=== PATIENT | male | born 1930 | race Caucasian/White ===

== ENCOUNTER 2016-02-05 11:08 | Inpatient (IN) | payer OTHER, BC ==
[~2016-02-05] VITALS: Ht 188 cm; Wt 97.6 kg
[2016-02-05] VITALS (8 sets, daily range): BP systolic 93–102; BP diastolic 59–69; PULSE 74–103; TEMP 36.8–38.8; O2SAT 93–97; Ht 188 cm; Wt 97.6 kg
[~2016-02-05 11:08] MED LIST: CHOL100010 PO; GLCSC500400 PO; HYDR25TA4 PO; MULT-506 PO; OMEG10007 PO; POTA10CA28 PO; PRIM50TA34 PO; PRLSR20 PO; PROP80CA PO
[2016-02-05] MEDS ORDERED: ASPI81TA28 PO (11:24)
[2016-02-05] MEDS ORDERED: LISI-729 PO (11:24)
[2016-02-05] MEDS ORDERED: MAGN400T6 PO (11:24)
[2016-02-05] MEDS ORDERED: HYDROmorphone INJ 0.5 MG/0.5 ML SYR IV STA (11:29)
[2016-02-05] MEDS ORDERED: ALBUT/IPRATROP 3MG/0.5MG NEB 3 ML VIAL INH STA (11:29)
[2016-02-05] MEDS ORDERED: ONDANSETRON INJ 2 MG/ML 2 ML VIAL IV STA (11:29)
[2016-02-05] MEDS ORDERED: SODIUM CHLORIDE 0.9% 1000ML 1,000 ML IV STA ×3 (11:32→12:07)
[2016-02-05 11:37] LABS: BASO % 0.2 %; BASO ABS # 0.02 K/uL (0-0.2); COMPLETE YES; EOS % 0.1 %; HEMATOCRIT 46.6 % (42-52); IG% 0.9 %; LYMPH % 3.3 %; LYMPH ABS # 0.29 K/uL (1.2-3.4); MEAN CORPUSCULAR HEMOGLOBIN 30.7 pg (25-34); MEAN CORPUSCULAR HGB CONC 34.1 g/dl (32-36); MONO % 5.2 %; NEUT % 90.3 %; PLATELET COUNT 153 K/uL (130-400); RED BLOOD COUNT 5.18 M/uL (4.7-6.1); WHITE BLOOD COUNT 8.71 K/uL (4.8-10.8)
--- NOTE | 2016-02-05 11:37 | EMERGENCY ROOM VISIT NOTE ---
History Report prepared by Urbano: Slade Robertson Under the Supervision of: Dr. Landon Munoz M.D. First contact with patient: 11:25 Chief Complaint: VOMITING Stated Complaint: WEAKNESS, VOMITING SOB History of Present Illness The patient is an 85 year old male who presents to the Emergency Room with complaints of a persistent illness that started last night. He says he was vomiting all night long, which was accompanied with diarrhea, abdominal pain, nausea, and a runny nose. The patient notes that he had swelling in his legs the past couple days, but they are not swollen now. He also had shortness of breath this morning. The patient fell in the bathroom at [facility] last night and got stuck. He has been having generalized weakness, and has been unable to walk due to vomiting. He did not hit his head and denies a headache. The patient has had an ileostomy for 50 years. He has no history of liver failure. The patient has no history of pneumonia. He has dark skin over his chest, but the patient has been taking light therapy for eczema. Source of History: patient Onset: Last night Position: other (global - illness ) Timing: other (persistent) Associated Symptoms: + SOB, + abdominal pain, + diarrhea, + nausea, + vomiting, + weakness, No headache Note: Associated symptoms: Swollen legs past couple days (but not swollen now), runny nose. Review of Systems See HPI for pertinent positives & negatives. A total of 10 systems reviewed and were otherwise negative. Past Medical & Surgical Medical Problems: (1) Arthritis (2) Kidney stone (3) TURP (4) UTI (urinary tract infection) Surgical Problems: (1) H/O hernia repair (2) History of cataract surgery Family History Family history unobtainable secondary to age. Social History Smoking Status: Never Smoker Marital Status: Housing Status: residential Occupation Status: retired Current/Historical Medications Scheduled Aspirin (Aspirin Ec), 81 MG PO DAILY Cholecalciferol (Vitamin D), 1,000 INTER.UNIT PO DAILY Fish Oil ([place]-3), 2 CAP PO DAILY Glucosamine-Chondroitin (Glucosamine/Chondroitin), 2 TABS PO BID Lisinopril (Zestril), 2.5 MG PO DAILY Magnesium Oxide (Mag-Ox), 400 MG PO DAILY Multivitamin (Multivitamin), 1 TAB PO DAILY Omeprazole (Prilosec Otc *), 20 MG PO DAILY Primidone (Mysoline), 50 MG PO DAILY Propranolol Hcl (Propranolol Hcl Er), 80 MG PO DAILY Allergies Coded Allergies: Adhesives (Verified Adverse Reaction, Unknown, ADHESIVE TAPE = BLISTERS, ) Physical Exam Vital Signs Date Time Temp Pulse Resp B/P Pulse Ox O2 Delivery O2 Flow Rate FiO2 02/05/16 13:15 97 Nasal Cannula 2.0 02/05/16 13:04 108 20 102/59 97 Nasal Cannula 2.0 02/05/16 11:56 94 Room Air 02/05/16 11:21 120 02/05/16 11:15 37.3 118 24 103/64 91 Room Air Physical Exam GENERAL: Patient is acutely ill appearing, in moderate distress. HEENT: No acute trauma, normocephalic atraumatic, mucous membranes moist, no nasal congestion, no scleral icterus. NECK: No stridor, no adenopathy, no meningismus, trachea is midline. LUNGS: Diffuse wheezing and rhonchi with tight lung sounds. Dyspneic and tachypneic. HEART: Tachycardic rate and regular rhythm. No murmurs, rubs, gallops appreciated. ABDOMEN: Soft, vague epigastric discomfort on palpation, bowel sounds positive, no masses appreciated, no peritonitis. BACK: No midline tenderness, no CVA tenderness EXTREMITIES: Normal motion all extremities, no cyanosis, no edema. NEUROLOGIC: Alert and oriented, no acute motor or sensory deficits, no focal weakness, cranial nerves grossly intact. SKIN: Pale, mildly mottled over chest. Medical Decision & Procedures ER Provider Diagnostic Interpretation: X ray results are stated below per my interpretation and the radiologist's interpretation. CHEST ONE VIEW PORTABLE CLINICAL HISTORY: fever WEAKNESS, SHORTNESS OF BREATH COMPARISON STUDY: 05/29/2015 FINDINGS: The heart is mildly enlarged. There is no lobar consolidation. There is no overt failure. There are mild basilar atelectatic changes. There is no significant pleural fluid[ IMPRESSION: AP portable study. Mild cardiomegaly. No evidence of focal pulmonary consolidation. Electronically signed by: Hugh Winters M.D. 02/05/2016 12:32 PM Laboratory Results 02/05/16 11:16 Red Blood Count 5.18, Mean Corpuscular Volume 90.0, Mean Corpuscular Hemoglobin 30.7, Mean Corpuscular Hemoglobin Concent 34.1, Mean Platelet Volume 10.0, Neutrophils (%) (Auto) 90.3, Lymphocytes (%) (Auto) 3.3, Monocytes (%) (Auto) 5.2, Eosinophils (%) (Auto) 0.1, Basophils (%) (Auto) 0.2, Neutrophils # (Auto) 7.86, Lymphocytes # (Auto) 0.29, Monocytes # (Auto) 0.45, Eosinophils # (Auto) 0.01, Basophils # (Auto) 0.02 02/05/16 11:16 Test 02/05/16 11:16 02/05/16 11:35 02/05/16 11:40 02/05/16 11:44 White Blood Count 8.71 K/uL (4.8-10.8) Red Blood Count 5.18 M/uL (4.7-6.1) Hemoglobin 15.9 g/dL (14.0-18.0) Hematocrit 46.6 % (42-52) Mean Corpuscular Volume 90.0 fL (80-100) Mean Corpuscular Hemoglobin 30.7 pg (25-34) Mean Corpuscular Hemoglobin Concent 34.1 g/dl (32-36) Platelet Count 153 K/uL (130-400) Mean Platelet Volume 10.0 fL (7.4-10.4) Neutrophils (%) (Auto) 90.3 % Lymphocytes (%) (Auto) 3.3 % Monocytes (%) (Auto) 5.2 % Eosinophils (%) (Auto) 0.1 % Basophils (%) (Auto) 0.2 % Neutrophils # (Auto) 7.86 K/uL (1.4-6.5) Lymphocytes # (Auto) 0.29 K/uL (1.2-3.4) Monocytes # (Auto) 0.45 K/uL (0.11-0.59) Eosinophils # (Auto) 0.01 K/uL (0-0.5) Basophils # (Auto) 0.02 K/uL (0-0.2) RDW Standard Deviation 48.6 fL (36.4-46.3) RDW Coefficient of Variation 14.8 % (11.5-14.5) Immature Granulocyte % (Auto) 0.9 % Immature Granulocyte # (Auto) 0.08 K/uL (0.00-0.02) Prothrombin Time 11.3 SECONDS (9.0-12.0) Prothromb Time International Ratio 1.1 (0.9-1.1) Est Creatinine Clear Calc Drug Dose 26.8 ml/min Estimated GFR () 28.7 Estimated GFR (Non- 24.8 BUN/Creatinine Ratio 13.6 (10-20) Calcium Level 9.0 mg/dl (8.5-10.1) Magnesium Level 1.8 mg/dl (1.8-2.4) Total Bilirubin 1.4 mg/dl (0.2-1) Direct Bilirubin 0.4 mg/dl (0-0.2) Aspartate Amino Transf (AST/SGOT) 50 U/L (15-37) Alanine Aminotransferase (ALT/SGPT) 50 U/L (12-78) Alkaline Phosphatase 71 U/L (45-117) Total Creatine Kinase 132 U/L (39-308) Creatine Kinase MB 1.7 ng/ml (0.5-3.6) Creatine Kinase MB Ratio 1.3 (0-3.0) Troponin I 0.209 ng/ml (0-0.045) Total Protein 8.2 gm/dl (6.4-8.2) Albumin 3.8 gm/dl (3.4-5.0) Lipase 149 U/L (73-393) Influenza Type A Antigen Neg for Influ A (NEG) Influenza Type B Antigen Neg for Influ B (NEG) Bedside Lactic Acid Venous 3.38 mmol/L (0.90-1.70) Bedside Hemoglobin 16.7 g/dl (14.0-18.0) Bedside Hematocrit 49 % (42-52) Bedside Sodium 142 mEq/L (135-144) Bedside Potassium 4.2 mEq/L (3.3-5.0) Bedside Chloride 107 mEq/L (101-112) Bedside Total CO2 18 mEq/l (24-31) Anion Gap 22.0 mmol/L (16-25) Bedside Blood Urea Nitrogen 34 mg/dl (7-18) Bedside Creatinine 1.9 mg/dl (0.6-1.3) Bedside Glucose (other) 152 mg/dl (70-99) Bedside Ionized Calcium (Priya) 1.17 mmol/l (1.12-1.32) Laboratory results as reviewed by me. Medications Administered Medications (Trade) Dose Ordered Sig/Karen Route Start Time Stop Time Status Last Admin Dose Admin Ondansetron HCl (Zofran Inj) 4 mg NOW STAT IV 02/05/16 11:29 02/05/16 11:30 DC 02/05/16 11:48 4 MG Hydromorphone HCl (Dilaudid Inj) 0.5 mg NOW STAT IV 02/05/16 11:29 02/05/16 11:30 DC 02/05/16 11:48 0.5 MG Albuterol/ Ipratropium 3 ml 3 ml NOW STAT INH 02/05/16 11:29 02/05/16 11:30 DC 02/05/16 11:47 3 ML Sodium Chloride 1,000 ml @ 999 mls/hr Q1H1M STAT IV 02/05/16 11:32 02/05/16 12:32 DC 02/05/16 11:44 999 MLS/HR Sodium Chloride (Nss 1000ml) 1,000 ml @ 999 mls/hr Q1H1M STAT IV 02/05/16 12:07 02/05/16 13:07 DC 02/05/16 12:31 999 MLS/HR Piperacillin Sod/ Tazobactam Sod 4.5 gm 4.5 gm NOW STAT IV 02/05/16 12:07 02/05/16 12:09 DC 02/05/16 12:29 4.5 GM Vancomycin HCl 1000 mg/Sodium Chloride 270 ml @ 125 mls/hr NOW STAT IV 02/05/16 12:07 02/05/16 14:18 DC 02/05/16 13:10 125 MLS/HR Sodium Chloride (Nss 1000ml) 1,000 ml @ 999 mls/hr Q1H1M STAT IV 02/05/16 12:07 02/05/16 13:07 DC 02/05/16 12:32 999 MLS/HR ECG Indication: vomiting Rate (beats per minute): 116 Rhythm: sinus tachycardia Findings: no acute ischemic change, no ectopy ED Course 1126: The patient was evaluated in room C4. A complete history and physical exam was performed. 1129: Ordered Duoneb 3 ml INH, Dilaudid Inj 0.5 mg IV, Zofran Inj 4 mg IV. 1132: Ordered NSS 1000 ml @ 999 mls/hr IV. 1200: I reevaluated the patient and he looks vastly improved and his color is improved, although he still has diffuse wheezing. The patient verbally expressed understanding and agreement of the treatment plan. The patient will be evaluated for further treatment. 1207: Ordered Vancomycin HCl 1000 mg/Sodium Chloride 270 ml @ 125 mls/hr IV, Zosyn IV 4.5 gm IV. 1215: I discussed the patient with Dr. Ania GONZALEZ roof tiler - he will evaluate the patient for further treatment. Medical Decision Differential: Sepsis, Infectious (UTI/Pneumonia/Meningitis/etc), Metabolic/ Electrolyte Abnormality, Cardiac, Hepatic, Endocrine, Toxicologic, Neurologic, amongst other pathologies entertained. 85 yr old male arrives quite unwell appearing, tachycardic, hypoxic and mottled. Lung exam quite poor consistent with infection as he does not appear CHF. 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 Still tachy and ill appearing on arrival. Given duoneb and further fluids. CXR not very convincing of it being source but with exam will treat empirically as pneumonia. Lactic acid elevated likely secondary to sepsis and dehydration, as is Cr elevated. Initially with abdominal discomfort which he related to vomiting and his abdomen is quite soft without peritonitis. I do not feel that he requires CT abdo/pelv at this time, especially given IV contrast can't be used limiting utility. HR improving with fluids and patient noting he is starting to feel much improved. Given broad spectrum abx. Not consistent with PE/dissection. Will need further work-up and evaluation. Consults Time Called: 1214 Consulting Physician: Dr. Ania GONZALEZ roof tiler Returned Call: 1215 I discussed the patient with Dr. Ania GONZALEZ roof tiler - he will evaluate the patient for further treatment. Impression Primary Impression: Sepsis Additional Impression: PNA (pneumonia) Critical Care I have personally spent greater than 35 minutes of critical care time in the direct management of this patient. This was a life/limb threatening event. This includes time spent evaluating patient, direct bedside care, chart review, placing orders, interpretation of diagnostic studies, discussion with consultants, patient, and family members, as well as other required patient management activities. This 35 minutes is in excess of all separately billable procedures. Scribe Attestation The scribe's documentation has been prepared under my direction and personally reviewed by me in its entirety. I confirm that the note above accurately reflects all work, treatment, procedures, and medical decision making performed by me. Departure Information Dispostion Being Evaluated By Hospitalist Referrals Elva Hanson (PCP) Patient Instructions A Signature Page, My [facility]
[2016-02-05 11:46] LABS: INR 1.1 (0.9-1.1); PROTHROMBIN TIME (PATIENT) 11.3 SECONDS (9.0-12.0)
[2016-02-05 11:48] LABS: BUN/CREATININE RATIO 13.6 (10-20); CREATININE 2.3 mg/dl (0.60-1.40); MAGNESIUM 1.8 mg/dl (1.8-2.4); POTASSIUM 4.4 mmol/L (3.5-5.1)
[2016-02-05 11:56] LABS: ISTAT CREATININE 1.9 mg/dl (0.6-1.3); ISTAT HEMOGLOBIN 16.7 g/dl (14.0-18.0); ISTAT IONIZED CALCIUM 1.17 mmol/l (1.12-1.32)
[2016-02-05 12:03] LABS: CKMB/CK RATIO 1.3 (0-3.0)
[2016-02-05] MEDS ORDERED: PIPERACILLIN/TAZOBACTAM 4.5 GM/100ML D5W IV STA (12:07)
[2016-02-05] MEDS ORDERED: VANCOMYCIN INJ 1,000 MG in SODIUM CHLORIDE 0.9% 250ML 250 ML IV STA (12:07)
--- NOTE | 2016-02-05 12:34 | DIAGNOSTIC IMAGING REPORT ---
CHEST ONE VIEW PORTABLE CLINICAL HISTORY: fever WEAKNESS, SHORTNESS OF BREATH COMPARISON STUDY: 05/29/2015 FINDINGS: The heart is mildly enlarged. There is no lobar consolidation. There is no overt failure. There are mild basilar atelectatic changes. There is no significant pleural fluid[ IMPRESSION: AP portable study. Mild cardiomegaly. No evidence of focal pulmonary consolidation. Electronically signed by: Hugh Winters M.D. 02/05/2016 12:32 PM
[2016-02-05] MEDS ORDERED: MAGNESIUM HYDROXIDE SUSP 30 ML UDC PO PRN (13:15)
[2016-02-05] MEDS ORDERED: POLYETHYLENE (MIRALAX) 17 GM PACK PO PRN (13:15)
[2016-02-05] MEDS ORDERED: NITROGLYCERIN 0.4 MG SL PER TAB CHARGE SL PRN (13:15)
[2016-02-05] MEDS ORDERED: ALUMINUM/MAGNESIUM/SIMETH (MAALOX MAX) 30 ML UDC PO PRN (13:15)
--- NOTE | 2016-02-05 14:23 | History and Physical ---
History & Physical Date & Time of Service: Feb 05, 2016 at 14:06 Chief Complaint: Weakness, Vomiting Sob Primary Care Physician: Elva Hanson History of Present Illness Source: patient, spouse, clinic records, hospital records Mr. Leung is a 85 y/o male with PMHx of Ulcerative Colitis S/P Partial Colectomy with Ileostomy (50 years ago), S/P Appendectomy, BPH S/P TURP, GERD, and MVP who presents to the ED complaining of nausea and vomiting that started last night and has remained consistent until approx 0900 this AM. He is a resident of [facility]. He reports he does not recall eating anything unusual or new prior to these episodes. Patient and ate same meal yesterday and does not report any similar symptoms. Associated abdominal pain that started last night and was "crampy" and is located superior to the umbilicus without radiation or movement of pain. Pain is improved however remains constant but he is unable to describe it at this time. He reports he had his appendix removed in the past. Patient with ileostomy present and reports diarrhea. States "it was almost clear" when describing the stool but denies bright red blood or melena. States that he normally has more formed stool with his ileostomy. Associated generalized weakness since the onset of these symptoms. He does report a fall in the bathroom at [facility] last night but denies striking his head or LOC. Does report SOB this AM that has improved. Associated rhinorrhea but denies presence of a cough. States that he was on a short course of prednisone and amoxicillin about 1 month ago because he was having wheezing. Reports lower extremity edema a couple days ago that have resolved. He states this is not uncommon for him and he was prescribed compression stockings to prevent edema. Patient has been undergoing light therapy for eczema on his chest and reports pruritus of that area. In the ED, patient was noted to have low BPs however patient reports that he always runs low and can be around 100 systolically. Lactic acid at 3.38. Troponin 0.209. Cr noted at 2.3 with baseline unknow however labs from Sep 2015 show Cr of 1.1. Influenza negative. He was hydrated with NSS boluses. CXR without evidence of focal consolidation however patient with rhonchi at bilateral bases without wheezing. Patient did received Duoneb treatment. He was started on Zosyn and Vancomycin. Patient will be admitted to the telemetry floor for further evaluation and care. Past Medical/Surgical History Medical Problems: (1) Arthritis Status: Chronic (2) Kidney stone Status: Chronic (3) TURP Status: Resolved (4) UTI (urinary tract infection) Status: Chronic Surgical Problems: (1) H/O hernia repair Status: Resolved (2) History of cataract surgery Status: Resolved Family History Myocardial Infarction FATHER, Social History Smoking Status: Former Smoker Smokeless Tobacco Use: No Alcohol Use: none Drug Use: none Marital Status: Housing status: lives with significant other (Marige) Occupational Status: retired Immunizations History of Influenza Vaccine: Yes History of Tetanus Vaccine?: UTD History of Pneumococcal: Yes History of Hepatitis B Vaccine: No Multi-Drug Resistant Organisms History of MDRO: No Allergies Coded Allergies: Adhesives (Verified Adverse Reaction, Unknown, ADHESIVE TAPE = BLISTERS, ) Home Medications Scheduled Aspirin (Aspirin Ec), 81 MG PO DAILY Cholecalciferol (Vitamin D), 1,000 INTER.UNIT PO DAILY Fish Oil ([place]-3), 2 CAP PO DAILY Glucosamine-Chondroitin (Glucosamine/Chondroitin), 2 TABS PO BID Lisinopril (Zestril), 2.5 MG PO DAILY Magnesium Oxide (Mag-Ox), 400 MG PO DAILY Multivitamin (Multivitamin), 1 TAB PO DAILY Omeprazole (Prilosec Otc *), 20 MG PO DAILY Primidone (Mysoline), 50 MG PO DAILY Propranolol Hcl (Propranolol Hcl Er), 80 MG PO DAILY Review of Systems Constitutional: No chills, No fever Eyes: No worsening of vision ENT: + nasal symptoms, No sore throat, No trouble swallowing Respiratory: + shortness of breath (resolved), + wheezing (resolved), No cough , No sputum Cardiovascular: No chest pain Abdomen: + diarrhea, + nausea, + pain (superior to umbilicus), + vomiting, No constipation Musculoskeletal: No calf pain, No joint pain Genitourinary - Male: No dysuria Neurologic: No vertigo Endocrine: No fatigue Hematologic / Lymphatic: No abnormal bleeding/bruising, No clotting problems Integumentary: + problem reported (ezcema of chest) Physical Exam Vital Signs Date Time Temp Pulse Resp B/P Pulse Ox O2 Delivery O2 Flow Rate FiO2 02/05/16 13:15 97 Nasal Cannula 2.0 12/20/16 13:04 108 20 102/59 97 Nasal Cannula 2.0 02/05/16 11:56 94 Room Air 02/05/16 11:21 120 02/05/16 11:15 37.3 118 24 103/64 91 Room Air General Appearance: WD/WN, no apparent distress Head: normocephalic, atraumatic Eyes: sclerae normal ENT: hearing grossly normal Neck: supple, no JVD, trachea midline Respiratory/Chest: no respiratory distress, no accessory muscle use, + rhonchi (bases to mid-lung bilat), + pertinent finding (erthematous/mottled chest reports chronic from eczema undergoing light therapy) Cardiovascular: regular rate, rhythm, no gallop, no murmur, + pertinent finding (H/O MVP) Abdomen/GI: normal bowel sounds, soft, + tenderness (superior to umbilicus not exacerbated with palpation), + pertinent finding (RLQ Ileostomy without erythema or edema of surrounding skin suggesting infection) Back: normal inspection, no CVA tenderness Extremities/Musculoskelatal: no calf tenderness, no pedal edema Neurologic/Psych: alert, oriented x 3 Skin: + pertinent finding (Face appears pale with questionable yellowing however sclera nonicteric ) Diagnostics Laboratory Results Results Past 24 Hours Test 02/05/16 11:16 02/05/16 11:35 02/05/16 11:40 02/05/16 11:44 Range/Units White Blood Count 8.71 4.8-10.8 K/uL Red Blood Count 5.18 4.7-6.1 M/uL Hemoglobin 15.9 14.0-18.0 g/dL Hematocrit 46.6 42-52 % Mean Corpuscular Volume 90.0 80-100 fL Mean Corpuscular Hemoglobin 30.7 25-34 pg Mean Corpuscular Hemoglobin Concent 34.1 32-36 g/dl Platelet Count 153 130-400 K/uL Mean Platelet Volume 10.0 7.4-10.4 fL Neutrophils (%) (Auto) 90.3 % Lymphocytes (%) (Auto) 3.3 % Monocytes (%) (Auto) 5.2 % Eosinophils (%) (Auto) 0.1 % Basophils (%) (Auto) 0.2 % Neutrophils # (Auto) 7.86 1.4-6.5 K/uL Lymphocytes # (Auto) 0.29 1.2-3.4 K/uL Monocytes # (Auto) 0.45 0.11-0.59 K/uL Eosinophils # (Auto) 0.01 0-0.5 K/uL Basophils # (Auto) 0.02 0-0.2 K/uL RDW Standard Deviation 48.6 36.4-46.3 fL RDW Coefficient of Variation 14.8 11.5-14.5 % Immature Granulocyte % (Auto) 0.9 % Immature Granulocyte # (Auto) 0.08 0.00-0.02 K/uL Prothrombin Time 11.3 9.0-12.0 SECONDS Prothromb Time International Ratio 1.1 0.9-1.1 Sodium Level 139 136-145 mmol/L Potassium Level 4.4 3.5-5.1 mmol/L Chloride Level 108 98-107 mmol/L Carbon Dioxide Level 21 21-32 mmol/L Anion Gap 10.0 22.0 16-25 mmol/L Blood Urea Nitrogen 31 7-18 mg/dl Creatinine 2.30 0.60-1.40 mg/dl Est Creatinine Clear Calc Drug Dose 26.8 ml/min Estimated GFR () 28.7 Estimated GFR (Non- 24.8 BUN/Creatinine Ratio 13.6 10-20 Random Glucose 165 70-99 mg/dl Calcium Level 9.0 8.5-10.1 mg/dl Magnesium Level 1.8 1.8-2.4 mg/dl Total Bilirubin 1.4 0.2-1 mg/dl Direct Bilirubin 0.4 0-0.2 mg/dl Aspartate Amino Transf (AST/SGOT) 50 15-37 U/L Alanine Aminotransferase (ALT/SGPT) 50 12-78 U/L Alkaline Phosphatase 71 45-117 U/L Total Creatine Kinase 132 39-308 U/L Creatine Kinase MB 1.7 0.5-3.6 ng/ml Creatine Kinase MB Ratio 1.3 0-3.0 Troponin I 0.209 0-0.045 ng/ml Total Protein 8.2 6.4-8.2 gm/dl Albumin 3.8 3.4-5.0 gm/dl Influenza Type A Antigen Neg for Influ A NEG Influenza Type B Antigen Neg for Influ B NEG Bedside Lactic Acid Venous 3.38 0.90-1.70 mmol/L Bedside Hemoglobin 16.7 14.0-18.0 g/dl Bedside Hematocrit 49 42-52 % Bedside Sodium 142 135-144 mEq/L Bedside Potassium 4.2 3.3-5.0 mEq/L Bedside Chloride 107 101-112 mEq/L Bedside Total CO2 18 24-31 mEq/l Bedside Blood Urea Nitrogen 34 7-18 mg/dl Bedside Creatinine 1.9 0.6-1.3 mg/dl Bedside Glucose (other) 152 70-99 mg/dl Bedside Ionized Calcium (Priya) 1.17 1.12-1.32 mmol/l Test 02/05/16 13:35 Range/Units Microbiology Results 02/05/16 Blood Culture, Received Pending 02/05/16 Blood Culture, Received Pending Diagnostic Radiology CHEST ONE VIEW PORTABLE CLINICAL HISTORY: fever WEAKNESS, SHORTNESS OF BREATH COMPARISON STUDY: 05/29/2015 FINDINGS: The heart is mildly enlarged. There is no lobar consolidation. There is no overt failure. There are mild basilar atelectatic changes. There is no significant pleural fluid[ IMPRESSION: AP portable study. Mild cardiomegaly. No evidence of focal pulmonary consolidation. EKG Left anterior fascicular block Abnormal ECG When compared with ECG of 27-FEB-2013 06:29, Aberrant conduction is no longer Present Vent. rate has increased BY 48 BPM Non-specific change in ST segment in Inferior leads ST no longer elevated in Lateral leads Nonspecific T wave abnormality has replaced inverted T waves in Inferior leads Impression Assessment and Plan Mr. Leung is a 85 y/o male with PMHx of Ulcerative Colitis S/P Partial Colectomy with Ileostomy (50 years ago), S/P Appendectomy, BPH S/P TURP, GERD, and MVP who presents to the ED complaining of nausea and vomiting that started last night and has remained consistent until approx 0900 this AM. Patient will be admitted to the telemetry floor for further evaluation and care. Nausea/Vomiting/Diarrhea: Gastroenteritis vs PNA vs Abdominal Etiology - Assessment - Patient afebrile, without leukocytosis, elevated lactic acid, vague abdominal pain, no presence of a cough - Imaging -- CXR - report and image reviewed - mild cardiomegaly without evidence of lobar consolidation -- CT Abd/Pelvis without contrast - pending - Echo - pending - C. Diff and Stool Cx - pending - UA and Cx - pending - Serial cardiac enzymes - initial troponin 0.209 - Zosyn and Vanc with pharmacy dosing - NSS 100 mL/hr - Duonebs QID and Q2H PRN - Zofran 4 mg IV Q6H PRN Acute Kidney Injury: Baseline Unknown - Last Cr 1.10 (Sep 2015): - NSS 100 mL/hr - has received bolus in ED - Continue monitoring Elevated Troponin: - EKG - reviewed - Sinus Tach without T wave inversions or obvious ischemic changes - Trend troponins - Elevation in the setting of possible demand ischemia 2/2 JACQUES - will continue to monitor Hypotension: - Patient reports his BP is normally "very low" and has received NSS boluses in ED - Will hold Propranolol ER and Lisinopril at this time - will reinstitute when baseline vitals established GERD: - Protonix 40 mg daily as interchange for Omeprazole DVT Prophylaxis: - Heparin 5000 units Q12H Code Status: - FULL RESUSCITATION Disposition - Resident of [place] Patient seen and examined at bedside. Chart, labs, imaging reviewed. Case discussed with LUCIANA Boudreaux- I agree with her assessment and plan. The patient reports having vomiting for one day and abdominal cramping, and watery stool. He reports use of antibiotics 3 weeks prior for a sinus infection. He denies Gen- NAD Lungs- crackles- right lung base Cardio- S1S2, RRR, no murmurs Abd- soft, NT, ileostomy in place, semi-formed stool in bag Ext- no c/c/e Neuro- AAOx3, no focal deficits 85 year old male with- Aspiration pneumonia- aspiration precautions. Continue Zosyn. JACQUES- secondary dehydration. Continue IV fluids. Hold nephrotoxins. Daily prp. Strict Ins and Outs. Daily weights. Vomiting- likely secondary to gastroenteritis. Antiemetics prn. Diarrhea- likely secondary to gastroenteritis. SC, C. diff. Dispo- Awaiting cultures. PT/OT. Spoke with patient's at bedside. Level of Care Telemetry Advanced Directives Existing Advance Directive: No Existing Living Will: No Existing Power of Transfer Knitter: No Resuscitation Status FULL RESUSCITATION VTE Prophylaxis VTE Risk Assessment Done? Y/N: Yes Risk Level: Moderate Given or contraindicated: Unfractionated heparin SQ, T.E.D. Stockings, SCD's
[2016-02-05] MEDS ORDERED: PIPERACILL/TAZOBAC CONSULT ACTIVE PRN (14:45)
[2016-02-05] MEDS ORDERED: VANCOMYCIN CONSULT ACTIVE PRN (14:45)
--- NOTE | 2016-02-05 14:47 | DIAGNOSTIC IMAGING REPORT ---
ABDOMEN AND PELVIS CT WITHOUT CONTRAST CT DOSE: 1037.53 mGycm HISTORY: Pain Superior to Umbilicus; S/P Ileostomy TECHNIQUE: Multiaxial CT images of the abdomen and pelvis were performed without contrast. COMPARISON STUDY: Abdomen and pelvis CT 03/21/2013. FINDINGS: Patchy groundglass airspace opacities within the lung bases, right greater than left. Stable 5 mm nodule within the right middle lobe which is considered to be benign given the long-term stability. No pneumoperitoneum. No pneumatosis. Small diverticulum at the second portion of the duodenum. A few small stones and sludge filling the gallbladder. No gallbladder wall thickening. Mild hepatic steatosis. The unenhanced spleen, adrenal glands, and pancreas are unremarkable. Stable 1 cm hypodense lesion within the upper pole of the right kidney. Mild bilateral perinephric edema is likely chronic. No renal stones or hydronephrosis. No retroperitoneal lymphadenopathy. No pelvic free fluid. Small fat-containing left inguinal hernia. Postoperative changes within the right inguinal region. 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 The small bowel appears to be normal in course and caliber. Suboptimal evaluation for bowel pathology due to the lack of intravenous and oral contrast. However, there is no definite bowel wall thickening or obstruction. Small focus of fatty infiltration within the right anterior omentum best seen on images 54 through 58. IMPRESSION: 1. Suboptimal evaluation for bowel pathology due to the lack of intravenous and oral contrast. However, there is no definite bowel wall thickening or obstruction. 2. Patchy groundglass densities within the lung bases, right greater than left. This likely represents a pneumonia possibly secondary to aspiration. 3. 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 4. Stones and sludge within the gallbladder. 5. Small focus of fatty infiltration within the right anterior omentum which may represent postoperative changes or a small omental infarct. Electronically signed by: Jonel Smith M.D. 02/05/2016 2:46 PM
--- NOTE | 2016-02-05 15:09 | Pharmacy Progress Note ---
Pharmacy Antibiotic Consult Date of Service: Feb 05, 2016. Pharmacy Dosing Scope Pharmacy is consulted to initiate Vancomycin and Zosyn IV dosing therapy, order appropriate labs and adjust drug dose/frequency. Subjective The patient is a 85 year old male admitted on Feb 05, 2016 at 13:18. Objective Height (Feet): 6 Height (Inches): 2.00 Weight (Kilograms): 95.800 Lab Results (24hrs): Laboratory Tests Test 02/05/16 11:16 BUN/Creatinine Ratio 13.6 Blood Urea Nitrogen 31 mg/dl Creatinine 2.30 mg/dl White Blood Count 8.71 K/uL Red Blood Count 5.18 M/uL Hemoglobin 15.9 g/dL Hematocrit 46.6 % Mean Corpuscular Volume 90.0 fL Mean Corpuscular Hemoglobin 30.7 pg Mean Corpuscular Hemoglobin Concent 34.1 g/dl Platelet Count 153 K/uL Mean Platelet Volume 10.0 fL Neutrophils (%) (Auto) 90.3 % Lymphocytes (%) (Auto) 3.3 % Monocytes (%) (Auto) 5.2 % Eosinophils (%) (Auto) 0.1 % Basophils (%) (Auto) 0.2 % Neutrophils # (Auto) 7.86 K/uL Lymphocytes # (Auto) 0.29 K/uL Monocytes # (Auto) 0.45 K/uL Eosinophils # (Auto) 0.01 K/uL Basophils # (Auto) 0.02 K/uL Micro Results: Item Value Date Time Blood Culture Received 02/05/16 1140 Blood Pending Blood Culture Received 02/05/16 1135 Blood Pending Assessment & Plan * 85 yo resident from [facility] admitted with c/o N/V/D and dehydration. Kidney function diminished, however, improving with hydration (SCr: 2.3 --> 1.9). Lactic acid elevated at 3.38mmol/L. * Pharmacy consulted to manage dosing of Zosyn and Vancomycin IV. Vancomycin: * Pt received Vancomycin 1gm IV x 1 in the ED. Will order an additional Vancomycin 1400mg IV x 1 to be given immediately following completion of first Vanc infusion to make a total loading dose of 25 mg/kg. * The estimated half life currently is 24 hours. I suspect this will shorten upon further hydration and improvement of kidney function. * Will determine maintenance dosing tomorrow based on Crcl and estimated half life. Zosyn: * Pt received Zosyn 4.5gm IV x 1 bolus over 30 min in the ED. * Will order Zosyn 3.375gm IV [id number] EI to continue upon admission for Crcl > 20 ml/min, BMI of 27 kg/m2, and non-critically ill patient. Pharmacy will continue to follow and will adjust dose/frequency as necessary. Thank you
[2016-02-05] MEDS ORDERED: VANCOMYCIN INJ 1,400 MG in SODIUM CHLORIDE 0.9% 500ML 500 ML IV ONE (15:30)
[2016-02-05] MEDS: SODIUM CHLORIDE 0.9% 1000ML 1,000 ML IV SCH (15:52)
[2016-02-05] MEDS: ALBUT/IPRATROP 3MG/0.5MG NEB 3 ML VIAL INH SCH ×2 (16:16→20:30)
[2016-02-05 17:33] LABS: CKMB/CK RATIO 1.1 (0-3.0)
[2016-02-05] MEDS: PIPERACILL/TAZOBAC IV 3.375 GM in DEXTROSE 5% 100ML 100 ML IV SCH (18:12)
--- NOTE | 2016-02-05 18:22 | Progress Note ---
Progress Note Patient repeat troponin-1.14. Patient without chest pain/discomfort. No ischemic changes on the monitor. Heparin gtt initiated. Cardiology consulted. Discussed with Stephon who agrees with anticoagulation and reports likely due to demand ischemia, recommends echo in AM and cardiology will follow.
[2016-02-05] MEDS ORDERED: HEPARIN IV BOLUS 7,000 UNIT in SYRINGE 0 ML IV SCH (19:15)
[2016-02-05 19:20] LABS: BASO % 0.1 %; BASO ABS # 0.01 K/uL (0-0.2); HEMATOCRIT 44.1 % (42-52); IG% 0.4 %; LYMPH % 3.3 %; MEAN CELL VOLUME 91.5 fL (80-100); MEAN CORPUSCULAR HEMOGLOBIN 30.7 pg (25-34); MEAN PLATELET VOLUME 10.3 fL (7.4-10.4); MONO % 6.8 %; NEUT % 89.4 %; PLATELET COUNT 129 K/uL (130-400); RED BLOOD COUNT 4.82 M/uL (4.7-6.1); WHITE BLOOD COUNT 9.16 K/uL (4.8-10.8)
[2016-02-05 19:34] LABS: INR 1.1 (0.9-1.1); PROTHROMBIN TIME (PATIENT) 11.9 SECONDS (9.0-12.0)
[2016-02-05 19:46] LABS: COMPLETE YES; MEAN CORPUSCULAR HGB CONC 33.6 g/dl (32-36)
[2016-02-05] MEDS: ACETAMINOPHEN 325 MG TAB PO PRN (19:54)
[2016-02-05] MEDS ORDERED: VANCOMYCIN INJ 1,000 MG in SODIUM CHLORIDE 0.9% 250ML 250 ML IV SCH (21:00)
[2016-02-05] MEDS ORDERED: HEPARIN SOD 5000 UNIT/0.5 ML CARP SQ SCH (21:00)
[2016-02-05] MEDS: HEPARIN 25,000 UNIT/500ML D5W 500 ML IV PRN (21:25)
[2016-02-05 23:44] LABS: CKMB/CK RATIO 0.8 (0-3.0)
[2016-02-06] VITALS (12 sets, daily range): BP systolic 65–133; BP diastolic 31–77; PULSE 61–104; TEMP 36.7–37.2; O2SAT 90–98
[2016-02-06] MEDS: SODIUM CHLORIDE 0.9% 1000ML 1,000 ML IV SCH ×4 (00:01→22:36)
[2016-02-06] MEDS: PIPERACILL/TAZOBAC IV 3.375 GM in DEXTROSE 5% 100ML 100 ML IV SCH ×3 (01:36→18:02)
[2016-02-06 03:56] LABS: HEMATOCRIT 39.6 % (42-52); MEAN CORPUSCULAR HGB CONC 33.3 g/dl (32-36); MEAN PLATELET VOLUME 9.8 fL (7.4-10.4); PLATELET COUNT 114 K/uL (130-400); WHITE BLOOD COUNT 7.34 K/uL (4.8-10.8)
[2016-02-06 04:19] LABS: COMPLETE YES; DOHLE BODIES 1+; IG% 0.1 %; LYMPH % 6.5 %; LYMPH ABS # 0.48 K/uL (1.2-3.4); MONO % 6.5 %; NEUT % 86.9 %
[2016-02-06 04:29] LABS: ALB/GLOB RATIO 0.8 (0.9-2); BUN/CREATININE RATIO 14.9 (10-20); CALCIUM 7.8 mg/dl (8.5-10.1); CREATININE 2.4 mg/dl (0.60-1.40); MAGNESIUM 1.9 mg/dl (1.8-2.4); PARTIAL THROMBOPLASTIN RATIO 6.5; POTASSIUM 3.6 mmol/L (3.5-5.1)
[2016-02-06 05:53] LABS: PARTIAL THROMBOPLASTIN RATIO 6.6
[2016-02-06 06:43] LABS: PARTIAL THROMBOPLASTIN RATIO 3.5
[2016-02-06] MEDS: ALBUT/IPRATROP 3MG/0.5MG NEB 3 ML VIAL INH SCH ×4 (07:38→19:16)
--- NOTE | 2016-02-06 07:44 | Clinical Documentation Query ---
SHWETHA Mejía : CLINICAL DOCUMENTATION QUERY Patient is an 85 year old male admitted with aspiration pneumonia and JACQUES in the setting of gastroenteritis. Serum troponin on admission of 0.209 with increase to 1.15 ng/ml. Patient initiated on heparin infusion, monitored on telemetry, echocardiogram pending, and is to be seen in consultation by cardiology. Documentation includes "likely due to demand ischemia". If clinically appropriate, please clarify as suggested below as this directly impacts DRG assignment. Thank you. In your clinical opinion is this patient being managed for: ( ) Type II NSTEMI ( ) Other explanation of clinical findings (Please Explain) ( ) Unable to determine (Please Define) ( ) Need to Discuss ( ) Not Agree The medical record reflects the following clinical findings, treatment, and risk factors. Clinical Indicators: As above Treatment: Patient initiated on heparin infusion, monitored on telemetry, echocardiogram pending, and is to be seen in consultation by cardiology Risk Factors: Age, acute infection UNIVERSAL CLASSIFICATION OF [place] Please clarify and document your clinical opinion in the progress notes and discharge summary. Terms such as "probable", "suspected", "likely", "questionable", "possible", or "still to be ruled out" are acceptable. IF IN AGREEMENT, YOU MUST DOCUMENT ABOVE DIAGNOSTIC STATEMENT IN DAILY PROGRESS NOTES AND DISCHARGE SUMMARY. This document is not part of the patient's record. Thank You, Darwin Harrison, REJI [phone]
[2016-02-06] MEDS: ONDANSETRON INJ 2 MG/ML 2 ML VIAL IV PRN (07:58)
[2016-02-06] MEDS: ASPIRIN 81 MG ECTAB PO SCH (08:42)
[2016-02-06 09:05] LABS: CKMB/CK RATIO 0.9 (0-3.0)
[2016-02-06] MEDS: MAGNESIUM OXIDE 400 MG TAB PO SCH (09:07)
[2016-02-06] MEDS: MULTIVITAMIN TAB PO SCH (09:08)
[2016-02-06] MEDS: PANTOprazole SOD 40 MG TAB PO SCH (09:09)
[2016-02-06] MEDS: PRIMIDONE 50 MG TAB PO SCH (09:09)
[2016-02-06] MEDS: CHOLECALCIFEROL 1000 INTER.UNIT TAB PO SCH (09:10)
[2016-02-06] MEDS ORDERED: NURSING VERBAL MED ORDER ONE (11:00)
[2016-02-06] MEDS ORDERED: PERFLUTREN LIPID MICROSPHERE (DEFINITY) IV PRN (11:00)
--- NOTE | 2016-02-06 11:35 | Cardiology Follow-Up ---
Cardiology Follow-Up Will dictate consult after echo reviewed. Overall normal LVEF on quick view. No plans for cardiac catheterization or stress testing at this time with acute renal failure, lack of concerning anginal symptoms, no acute ECG changes. Discussed with patient and his .
--- NOTE | 2016-02-06 13:01 | ECHOCARDIOGRAM REPORT ---
*NOTICE TO RECEIVING [employer] This information is strictly Confidential and protected under [place] law. [place] law prohibits you from making any further disclosure of this information unless further disclosure is expressly permitted by the written consent of the person to whom it pertains or is authorized by law. A general authorization for the release of medical or other information is not sufficient for this purpose. Hospital accepts no responsibility if the information is made available to any other person, INCLUDING THE PATIENT. Interpretation Summary * Conclusions -- * Ejection Fraction = 65-70%. * The left ventricular wall motion is normal at rest. * Right ventricular systolic pressure is normal. * Mildly dilated ascending aorta, 3.8cm. * Grade I diastolic dysfunction, (abnormal relaxation pattern). * Compared to previous echocardiogram 05/31/15, mitral regurgitation is less. Procedure Details * A complete two-dimensional transthoracic echocardiogram was performed (2D, M-mode, Doppler and color flow Doppler). * A contrast injection of Definity was performed to improve assessment of LV function. * Contrast was injected into an intravenous site in the left arm. * One vial of Definity ultrasound contrast was diluted in normal saline to a total volume of 10 ml. A total of '3' ml of solution was administered during imaging. * Lot # [id number] of Definity utilized for procedure. * Expiration date JAN 02. * The attending nurse who injected the contrast agent was Villa Saldivar RN. Left Ventricle * The left ventricle is grossly normal size. * There is mild concentric left ventricular hypertrophy. * Ejection Fraction = 65-70%. * The left ventricular wall motion is normal at rest. Right Ventricle * The right ventricle is not well visualized. * The right ventricle is grossly normal size. * The right ventricular systolic function is normal as assessed by tricuspid annular plane systolic excursion (TAPSE) (normal >1.5 cm). Atria * The left atrial size is normal. * Right atrium not well visualized. Mitral Valve * The mitral valve is not well visualized. * The mitral valve leaflets are thickened and redundant without clear evidence of mitral valve prolapse. * There is no mitral valve stenosis. * Significant mitral regurgitation is absent. Tricuspid Valve * Significant tricuspid regurgitation is absent. * Right ventricular systolic pressure is normal. Aortic Valve * Aortic valve sclerosis moderate, without significant aortic valvular stenosis. * The aortic valve is trileaflet. * Aortic stenosis is absent. * There is no significant aortic regurgitation. Pulmonic Valve * The pulmonic valve is not well visualized. * There is no pulmonic valvular stenosis. * Trace pulmonic valvular regurgitation. Great Vessels * Mildly dilated ascending aorta. Left Ventricular Diastolic Function * Grade I diastolic dysfunction, (abnormal relaxation pattern). MMode 2D Measurements and Calculations IVSd 1.2 cm LVIDd 3.3 cm LVIDs 2.5 cm LVPWd 1.1 cm IVS/LVPW 1.1 FS 24.4 % EDV(Teich) 45.5 ml ESV(Teich) 22.9 ml EF(Teich) 49.6 % EDV(cubed) 37.3 ml ESV(cubed) 16.1 ml EF(cubed) 56.7 % LV mass(C)d 124.7 grams LV mass(C)dI 56.1 grams/m\S\2 SV(Teich) 22.5 ml SI(Teich) 10.1 ml/m\S\2 SV(cubed) 21.1 ml SI(cubed) 9.5 ml/m\S\2 Ao root diam 3.5 cm Ao root area 9.5 cm\S\2 ACS 2.4 cm LA dimension 2.5 cm asc Aorta Diam 3.8 cm LA/Ao 0.73 LVOT diam 2.0 cm LVOT area 3.1 cm\S\2 LVAd ap4 26.4 cm\S\2 LVLd ap4 6.8 cm EDV(MOD-sp4) 81.4 ml EDV(sp4-el) 87.1 ml LVAs ap4 11.5 cm\S\2 LVLs ap4 5.0 cm ESV(MOD-sp4) 23.5 ml ESV(sp4-el) 22.3 ml EF(MOD-sp4) 71.1 % EF(sp4-el) 74.4 % LVAd ap2 25.4 cm\S\2 LVLd ap2 7.2 cm EDV(MOD-sp2) 73.3 ml EDV(sp2-el) 76.3 ml LVAs ap2 11.9 cm\S\2 LVLs ap2 5.7 cm ESV(MOD-sp2) 21.1 ml ESV(sp2-el) 21.1 ml EF(MOD-sp2) 71.2 % EF(sp2-el) 72.3 % LVLd %diff 4.8 % EDV(MOD-bp) 78.8 ml LVLs %diff 11.0 % ESV(MOD-bp) 23.4 ml EF(MOD-bp) 70.2 % SV(MOD-sp4) 57.9 ml SI(MOD-sp4) 26.1 ml/m\S\2 SV(MOD-sp2) 52.2 ml SI(MOD-sp2) 23.5 ml/m\S\2 SV(MOD-bp) 55.3 ml SI(MOD-bp) 24.9 ml/m\S\2 SV(sp4-el) 64.8 ml SI(sp4-el) 29.2 ml/m\S\2 SV(sp2-el) 55.2 ml SI(sp2-el) 24.8 ml/m\S\2 Doppler Measurements and Calculations MV E max denzel 36.4 cm/sec MV A max denzel 82.8 cm/sec MV E/A 0.44 MV dec time 0.13 sec Ao V2 max 110.0 cm/sec Ao max PG 4.8 mmHg Ao max PG (full) 0.87 mmHg FAREED(V,A) 2.8 cm\S\2 FAREED(V,D) 2.8 cm\S\2 AI max denzel 387.3 cm/sec AI max PG 60.0 mmHg AI dec slope 102.6 cm/sec\S\2 AI P1/2t 1105.4 msec LV V1 max PG 4.0 mmHg LV V1 max 99.7 cm/sec PA V2 max 72.8 cm/sec PA max PG 2.1 mmHg PA acc slope 599.8 cm/sec\S\2 PA acc time 0.09 sec PI max denzel 111.3 cm/sec PI max PG 5.0 mmHg PI dec slope 73.0 cm/sec\S\2 PI P1/2t 446.6 msec TR max denzel 205.8 cm/sec PA pr(Accel) 37.3 mmHg
--- NOTE | 2016-02-06 13:31 | Cardiology Consultation ---
Cardiology Consultation Date of Consultation: Feb 06, 2016. Requesting Physician: Michael Attending Physician: Ximena Reason for Consultation: NSTEMI Pt evaluation today including: conversation w/ patient, conversation w/ family , physical exam, chart review, lab review, review of studies, conversation w/ sales enablement consultant, review of inpatient medication list History of Present Illness 85yo male, admitted n/v/d symptoms. Trops elevated. Patient denies cp, sob, syncope, bleeding, edema, claudication, [place], vision changes. C/O n/v, low quadrant abd pain. Hx of stress test 5 years ago - normal at 80%. no cath history. compliant with meds at home. Exerts himself at home without issues. 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 Family History Myocardial Infarction FATHER, Social History Smoking Status: Former Smoker History of Alcohol Use: Yes states his ostomy is functioning well. Review of Systems Constitutional: + fatigue, + fever, + weakness, No chills Respiratory: No cough, No dyspnea at rest, No dyspnea on exertion, No hemoptysis, No shortness of breath, No sputum, No wheezing Cardiac: No chest pain, No claudication, No edema, No orthopnea, No palpitations Abdomen: + diarrhea, + nausea, + pain, + vomiting, No GI bleeding, No constipation Male : No dysuria, No hematuria, No problem reported Neurologic: + weakness, No balance problems, No problem reported Heme: No abnormal bleeding/bruising, No clotting problems, No problem reported Endo: + fatigue Skin: No bleeding, No color change, No itch, No new/changing skin lesions, No rash All Other Systems: Reviewed and Negative Allergies Coded Allergies: Adhesives (Verified Adverse Reaction, Unknown, ADHESIVE TAPE = BLISTERS, ) Medications Current Inpatient Medications Medications (Trade) Dose Ordered Sig/Karen Route Start Time Stop Time Status Last Admin Dose Admin Acetaminophen (Tylenol Tab) 650 mg Q4H PRN PO 02/05/16 13:15 03/06/16 13:14 02/05/16 19:54 650 MG Al Hydrox/Mg Hydrox/Simethicone (Maalox Max Susp) 15 ml Q4H PRN PO 02/05/16 13:15 1/19/17 13:14 Magnesium Hydroxide (Milk Of Magnesia Susp) 30 ml Q12H PRN PO 02/05/16 13:15 03/06/16 13:14 Ondansetron HCl (Zofran Inj) 4 mg Q6H PRN IV 02/05/16 13:15 03/06/16 13:14 02/06/16 07:58 4 MG Nitroglycerin (Nitrostat Tab) 0.4 mg UD PRN SL 02/05/16 13:15 03/06/16 13:14 Polyethylene 17 gm 17 gm DAILY PRN PO 02/05/16 13:15 03/06/16 13:14 Piperacillin Sod/ Tazobactam Sod/ Dextrose (Zosyn Iv/D5 100ml) 115 ml @ 28.75 mls/ hr Q8H IV 02/05/16 18:00 02/15/16 17:59 02/06/16 09:13 28.75 MLS/HR Albuterol/ Ipratropium 3 ml 3 ml QIDR INH 02/05/16 16:00 03/06/16 15:59 02/06/16 11:38 3 ML Sodium Chloride (Nss 1000ml) 1,000 ml @ 150 mls/hr Q6H40M IV 02/05/16 13:45 02/06/16 09:11 150 MLS/HR Aspirin (Ecotrin Tab) 81 mg DAILY PO 02/06/16 09:00 03/07/16 08:59 02/06/16 08:42 81 MG Cholecalciferol (Vitamin D Tab) 1,000 inter.unit DAILY PO 02/06/16 09:00 03/07/16 08:59 02/06/16 09:10 1,000 INTER.UNIT Magnesium Oxide (Mag-Ox Tab) 400 mg DAILY PO 02/06/16 09:00 03/07/16 08:59 02/06/16 09:07 400 MG Multivitamins (Multivitamin Tab) 1 tab DAILY PO 02/06/16 09:00 03/07/16 08:59 02/06/16 09:08 1 TAB Primidone (Mysoline Tab) 50 mg DAILY PO 02/06/16 09:00 03/07/16 08:59 02/06/16 09:09 50 MG Pantoprazole Sodium (Protonix Tab) 40 mg QAM PO 02/06/16 09:00 1/20/17 08:59 02/06/16 09:09 40 MG Vancomycin HCl (Consult) 1 ea UD PRN N/A 02/05/16 14:45 03/06/16 14:44 Piperacillin Sod/ Tazobactam Sod 1 ea 1 ea UD PRN N/A 02/05/16 14:45 03/06/16 14:44 Heparin Sodium/ Dextrose (Heparin 25,000 Unit/500ml D5W) 500 ml @ 27 mls/hr [id number] PRN IV 02/05/16 19:15 03/06/16 19:14 02/05/16 21:25 32 MLS/HR Perflutren Lipid Microsphere (Definity) 2 ml PRN PRN IV 02/06/16 11:00 02/06/16 23:59 02/06/16 11:04 2 ML Physical Exam Vital Signs Past 12 Hours Date Time Temp Pulse Resp B/P Pulse Ox O2 Delivery O2 Flow Rate FiO2 02/06/16 12:49 36.9 61 20 133/77 95 Nasal Cannula 2.0 02/06/16 12:00 Nasal Cannula 3.0 02/06/16 11:38 92 18 98 Nasal Cannula 3.0 02/06/16 08:00 96 Nasal Cannula 3.0 02/06/16 07:38 99 18 96 Nasal Cannula 3.0 02/06/16 07:30 36.9 91 18 95/55 95 Nasal Cannula 2.0 02/06/16 04:50 90/52 02/06/16 04:36 37.2 93 16 65/31 96 3.0 02/06/16 04:05 Nasal Cannula 2.0 Constitutional: General Apperance: heathly-appearing Level of Distress: NAD Psychiatric: Mental Status: active & alert, normal mood, normal affect Head: normocephalic, atraumatic ENMT: normal ENT inspection, hearing grossly normal Neck: supple, trachea midline, no masses Lungs: Respiratory effort: no dyspnea, good air movement Auscultation: breath sounds normal, no wheezing, no rales/crackles, no rhonchi Cardiovascular: Apical Impulse: not displaced Heart Auscultation: RRR, no murmurs, no rubs, no gallops Peripheral Pulses: Radial Pulse: normal on the left, normal on the right Dorsalis Pedis Pulse: normal on the left, normal on the right Musculoskeletal: normal, normal tone Extremities: no ulcers Neurologic: Cranial Nerves: grossly intact Sensation: grossly intact Data Laboratory Results: Last 24 Hours Test 02/05/16 14:55 02/05/16 16:44 02/05/16 19:08 02/05/16 23:15 Lactic Acid Level 2.5 mmol/L Total Creatine Kinase 234 U/L 387 U/L Creatine Kinase MB 2.6 ng/ml 3.1 ng/ml Creatine Kinase MB Ratio 1.1 0.8 Troponin I 1.140 ng/ml 1.150 ng/ml White Blood Count 9.16 K/uL Red Blood Count 4.82 M/uL Hemoglobin 14.8 g/dL Hematocrit 44.1 % Mean Corpuscular Volume 91.5 fL Mean Corpuscular Hemoglobin 30.7 pg Mean Corpuscular Hemoglobin Concent 33.6 g/dl Platelet Count 129 K/uL Mean Platelet Volume 10.3 fL Neutrophils (%) (Auto) 89.4 % Lymphocytes (%) (Auto) 3.3 % Monocytes (%) (Auto) 6.8 % Eosinophils (%) (Auto) 0.0 % Basophils (%) (Auto) 0.1 % Neutrophils # (Auto) 8.19 K/uL Lymphocytes # (Auto) 0.30 K/uL Monocytes # (Auto) 0.62 K/uL Eosinophils # (Auto) 0.00 K/uL Basophils # (Auto) 0.01 K/uL RDW Standard Deviation 50.6 fL RDW Coefficient of Variation 15.0 % Immature Granulocyte % (Auto) 0.4 % Immature Granulocyte # (Auto) 0.04 K/uL Prothrombin Time 11.9 SECONDS Prothromb Time International Ratio 1.1 Activated Partial Thromboplast Time 26.8 SECONDS Partial Thromboplastin Ratio 1.0 Test 02/06/16 03:35 02/06/16 04:58 02/06/16 06:11 02/06/16 08:23 White Blood Count 7.34 K/uL Red Blood Count 4.40 M/uL Hemoglobin 13.2 g/dL Hematocrit 39.6 % Mean Corpuscular Volume 90.0 fL Mean Corpuscular Hemoglobin 30.0 pg Mean Corpuscular Hemoglobin Concent 33.3 g/dl Platelet Count 114 K/uL Mean Platelet Volume 9.8 fL Neutrophils (%) (Auto) 86.9 % Lymphocytes (%) (Auto) 6.5 % Monocytes (%) (Auto) 6.5 % Eosinophils (%) (Auto) 0.0 % Basophils (%) (Auto) 0.0 % Neutrophils # (Auto) 6.37 K/uL Lymphocytes # (Auto) 0.48 K/uL Monocytes # (Auto) 0.48 K/uL Eosinophils # (Auto) 0.00 K/uL Basophils # (Auto) 0.00 K/uL RDW Standard Deviation 50.1 fL RDW Coefficient of Variation 15.2 % Immature Granulocyte % (Auto) 0.1 % Immature Granulocyte # (Auto) 0.01 K/uL Dohle Bodies 1+ Activated Partial Thromboplast Time 171.8 SECONDS 173.9 SECONDS 90.9 SECONDS Partial Thromboplastin Ratio 6.5 6.6 3.5 Sodium Level 140 mmol/L Potassium Level 3.6 mmol/L Chloride Level 108 mmol/L Carbon Dioxide Level 22 mmol/L Anion Gap 10.0 mmol/L Blood Urea Nitrogen 36 mg/dl Creatinine 2.40 mg/dl Est Creatinine Clear Calc Drug Dose 25.7 ml/min Estimated GFR () 27.3 Estimated GFR (Non- 23.5 BUN/Creatinine Ratio 14.9 Random Glucose 111 mg/dl Calcium Level 7.8 mg/dl Magnesium Level 1.9 mg/dl Total Bilirubin 1.2 mg/dl Aspartate Amino Transf (AST/SGOT) 53 U/L Alanine Aminotransferase (ALT/SGPT) 43 U/L Alkaline Phosphatase 42 U/L Total Protein 6.4 gm/dl Albumin 2.9 gm/dl Globulin 3.5 gm/dl Albumin/Globulin Ratio 0.8 Total Creatine Kinase 529 U/L Creatine Kinase MB 4.9 ng/ml Creatine Kinase MB Ratio 0.9 Troponin I 0.796 ng/ml Test 02/06/16 13:05 Imaging/EKG ECG 1 Sinus tach, no st-t changes. ECG 2 artifact, no st-t changes Echo normal LVEF, No MR. Possibly hyperdynamic EF. CT - ? PNA at bases c/w aspiration. Assessment & Plan 1. NSTEMI - likely demand from hypotension, dehydration, ARF. Hep drip 48 hours total. Continue cardioprotective meds. Hold nephrotoxics. 2. ARF - IVF recommended with hyperdynamic LVEF and reduced MR on echo. 3. Poss PNA - Abx. 4. Gastroenteritis - IVF, Abx. Discussed with Dr. Rodriguez - no plans for cath or stress testing. Recommend outpatient cardiology f/u once acute GI issues resolved. IVF - ok for bolus' with hyperdynamic LVEF. check trop again in AM with labs. ECG if any changes in symptoms.
[2016-02-06 13:48] LABS: PARTIAL THROMBOPLASTIN RATIO 5.3
--- NOTE | 2016-02-06 14:04 | Progress Note ---
Subjective Date of Service: Feb 06, 2016. Subjective Pt evaluation today including: conversation w/ patient, conversation w/ family (spoke with at bedside), physical exam, chart review, lab review, review of studies, conversation w/ fashion consultant selling (discussed with Cardiology- Dr. Bueno ), review of inpatient medication list Patient reports having episodes of nausea. He denies vomiting. He denies chest pain, SOB, or palpitations. Patient started on heparin gtt yesterday. Problem List Medical Problems: (1) PNA (pneumonia) Status: Acute (2) Sepsis Status: Acute Review of Systems Constitutional: No chills, No fatigue, No fever, No problem reported, No see HPI, No sweats, No weakness, No weight loss ENT: No dental problems, No hearing loss, No nasal symptoms, No problem reported, No see HPI, No sore throat, No tinnitus, No trouble swallowing, No unusual epistaxis Respiratory: No cough, No dyspnea at rest, No dyspnea on exertion, No hemoptysis, No problem reported, No see HPI, No shortness of breath, No sputum, No wheezing Cardiac: No PND, No chest pain, No claudication, No edema, No orthopnea, No palpitations, No problem reported, No see HPI Abdomen: No GI bleeding, No constipation, No diarrhea, No nausea, No pain, No problem reported, No see HPI, No vomiting Musculoskeletal: No calf pain, No joint pain, No muscle pain, No problem reported, No see HPI, No swelling Male : No dysuria, No hematuria, No incontinence, No nocturia more than once/ night, No problem reported, No see HPI, No sexual dysfunction, No slowing stream , No urinary frequency Neurologic: No balance problems, No memory loss, No numbness/tingling, No paralysis, No problem reported, No see HPI, No vertigo, No weakness Psychiatric: No anhedonism, No anxiety, No depression symptoms, No insomnia, No problem reported, No see HPI, No substance abuse Heme: No abnormal bleeding/bruising, No clotting problems, No night sweats, No problem reported, No see HPI, No swollen lymph nodes Endo: No excessive thirst, No excessive urination, No fatigue, No problem reported, No see HPI Skin: No bleeding, No color change, No itch, No new/changing skin lesions, No problem reported, No rash, No see HPI All Other Systems: Reviewed and Negative Medications Current Inpatient Medications Medications (Trade) Dose Ordered Sig/Karen Route Start Time Stop Time Status Last Admin Dose Admin Acetaminophen (Tylenol Tab) 650 mg Q4H PRN PO 02/05/16 13:15 03/06/16 13:14 02/05/16 19:54 650 MG Al Hydrox/Mg Hydrox/Simethicone (Maalox Max Susp) 15 ml Q4H PRN PO 02/05/16 13:15 03/06/16 13:14 Magnesium Hydroxide (Milk Of Magnesia Susp) 30 ml Q12H PRN PO 02/05/16 13:15 03/06/16 13:14 Ondansetron HCl (Zofran Inj) 4 mg Q6H PRN IV 02/05/16 13:15 03/06/16 13:14 02/06/16 07:58 4 MG Nitroglycerin (Nitrostat Tab) 0.4 mg UD PRN SL 02/05/16 13:15 03/06/16 13:14 Polyethylene 17 gm 17 gm DAILY PRN PO 02/05/16 13:15 03/06/16 13:14 Piperacillin Sod/ Tazobactam Sod/ Dextrose (Zosyn Iv/D5 100ml) 115 ml @ 28.75 mls/ hr Q8H IV 02/05/16 18:00 02/15/16 17:59 02/06/16 09:13 28.75 MLS/HR Albuterol/ Ipratropium 3 ml 3 ml QIDR INH 02/05/16 16:00 03/06/16 15:59 02/06/16 11:38 3 ML Sodium Chloride (Nss 1000ml) 1,000 ml @ 150 mls/hr Q6H40M IV 02/05/16 13:45 02/06/16 09:11 150 MLS/HR Aspirin (Ecotrin Tab) 81 mg DAILY PO 02/06/16 09:00 03/07/16 08:59 02/06/16 08:42 81 MG Cholecalciferol (Vitamin D Tab) 1,000 inter.unit DAILY PO 02/06/16 09:00 03/07/16 08:59 02/06/16 09:10 1,000 INTER.UNIT Magnesium Oxide (Mag-Ox Tab) 400 mg DAILY PO 12/21/16 09:00 03/07/16 08:59 02/06/16 09:07 400 MG Multivitamins (Multivitamin Tab) 1 tab DAILY PO 02/06/16 09:00 03/07/16 08:59 02/06/16 09:08 1 TAB Primidone (Mysoline Tab) 50 mg DAILY PO 02/06/16 09:00 03/07/16 08:59 02/06/16 09:09 50 MG Pantoprazole Sodium (Protonix Tab) 40 mg QAM PO 02/06/16 09:00 03/07/16 08:59 02/06/16 09:09 40 MG Vancomycin HCl (Consult) 1 ea UD PRN N/A 02/05/16 14:45 03/06/16 14:44 Piperacillin Sod/ Tazobactam Sod 1 ea 1 ea UD PRN N/A 02/05/16 14:45 03/06/16 14:44 Heparin Sodium/ Dextrose (Heparin 25,000 Unit/500ml D5W) 500 ml @ 27 mls/hr [id number] PRN IV 02/05/16 19:15 03/06/16 19:14 02/05/16 21:25 32 MLS/HR Perflutren Lipid Microsphere (Definity) 2 ml PRN PRN IV 02/06/16 11:00 02/06/16 23:59 02/06/16 11:04 2 ML Objective Vital Signs Date Time Temp Pulse Resp B/P Pulse Ox O2 Delivery O2 Flow Rate FiO2 02/06/16 12:49 36.9 61 20 133/77 95 Nasal Cannula 2.0 02/06/16 12:00 Nasal Cannula 3.0 02/06/16 11:38 92 18 98 Nasal Cannula 3.0 02/06/16 08:00 96 Nasal Cannula 3.0 02/06/16 07:38 99 18 96 Nasal Cannula 3.0 02/06/16 07:30 36.9 91 18 95/55 95 Nasal Cannula 2.0 02/06/16 04:50 90/52 02/06/16 04:36 37.2 93 16 65/31 96 3.0 02/06/16 04:05 Nasal Cannula 2.0 02/06/16 00:05 Nasal Cannula 2.0 02/05/16 23:20 36.9 96 16 93/59 94 Room Air 02/05/16 22:15 37.4 02/05/16 21:00 38.6 02/05/16 20:31 103 18 96 Nasal Cannula 3.0 02/05/16 20:00 Nasal Cannula 2.0 02/05/16 20:00 38.8 02/05/16 16:17 74 18 94 Nasal Cannula 3.5 02/05/16 15:45 Nasal Cannula 2.0 02/05/16 15:22 36.8 81 22 102/69 93 Nasal Cannula 3.0 02/05/16 14:15 36.9 103 20 102/59 98 Physical Exam General Appearance: WD/WN, no apparent distress Eyes: normal inspection, PERRL Neck: supple, no JVD Respiratory/Chest: lungs clear, normal breath sounds, no respiratory distress Cardiovascular: regular rate, rhythm, no edema, no gallop, no murmur Abdomen: normal bowel sounds, non tender, soft Extremities: normal range of motion, non-tender, normal inspection, no calf tenderness Neurologic/Psychiatric: type copyist II-XII nml as tested, no motor/sensory deficits, alert Skin: normal color, warm/dry Laboratory Results Last 24 Hours Test 02/05/16 14:55 02/05/16 16:44 02/05/16 19:08 02/05/16 23:15 Lactic Acid Level 2.5 mmol/L Total Creatine Kinase 234 U/L 387 U/L Creatine Kinase MB 2.6 ng/ml 3.1 ng/ml Creatine Kinase MB Ratio 1.1 0.8 Troponin I 1.140 ng/ml 1.150 ng/ml White Blood Count 9.16 K/uL Red Blood Count 4.82 M/uL Hemoglobin 14.8 g/dL Hematocrit 44.1 % Mean Corpuscular Volume 91.5 fL Mean Corpuscular Hemoglobin 30.7 pg Mean Corpuscular Hemoglobin Concent 33.6 g/dl Platelet Count 129 K/uL Mean Platelet Volume 10.3 fL Neutrophils (%) (Auto) 89.4 % Lymphocytes (%) (Auto) 3.3 % Monocytes (%) (Auto) 6.8 % Eosinophils (%) (Auto) 0.0 % Basophils (%) (Auto) 0.1 % Neutrophils # (Auto) 8.19 K/uL Lymphocytes # (Auto) 0.30 K/uL Monocytes # (Auto) 0.62 K/uL Eosinophils # (Auto) 0.00 K/uL Basophils # (Auto) 0.01 K/uL RDW Standard Deviation 50.6 fL RDW Coefficient of Variation 15.0 % Immature Granulocyte % (Auto) 0.4 % Immature Granulocyte # (Auto) 0.04 K/uL Prothrombin Time 11.9 SECONDS Prothromb Time International Ratio 1.1 Activated Partial Thromboplast Time 26.8 SECONDS Partial Thromboplastin Ratio 1.0 Test 02/06/16 03:35 02/06/16 04:58 02/06/16 06:11 02/06/16 08:23 White Blood Count 7.34 K/uL Red Blood Count 4.40 M/uL Hemoglobin 13.2 g/dL Hematocrit 39.6 % Mean Corpuscular Volume 90.0 fL Mean Corpuscular Hemoglobin 30.0 pg Mean Corpuscular Hemoglobin Concent 33.3 g/dl Platelet Count 114 K/uL Mean Platelet Volume 9.8 fL Neutrophils (%) (Auto) 86.9 % Lymphocytes (%) (Auto) 6.5 % Monocytes (%) (Auto) 6.5 % Eosinophils (%) (Auto) 0.0 % Basophils (%) (Auto) 0.0 % Neutrophils # (Auto) 6.37 K/uL Lymphocytes # (Auto) 0.48 K/uL Monocytes # (Auto) 0.48 K/uL Eosinophils # (Auto) 0.00 K/uL Basophils # (Auto) 0.00 K/uL RDW Standard Deviation 50.1 fL RDW Coefficient of Variation 15.2 % Immature Granulocyte % (Auto) 0.1 % Immature Granulocyte # (Auto) 0.01 K/uL Dohle Bodies 1+ Activated Partial Thromboplast Time 171.8 SECONDS 173.9 SECONDS 90.9 SECONDS Partial Thromboplastin Ratio 6.5 6.6 3.5 Sodium Level 140 mmol/L Potassium Level 3.6 mmol/L Chloride Level 108 mmol/L Carbon Dioxide Level 22 mmol/L Anion Gap 10.0 mmol/L Blood Urea Nitrogen 36 mg/dl Creatinine 2.40 mg/dl Est Creatinine Clear Calc Drug Dose 25.7 ml/min Estimated GFR () 27.3 Estimated GFR (Non- 23.5 BUN/Creatinine Ratio 14.9 Random Glucose 111 mg/dl Calcium Level 7.8 mg/dl Magnesium Level 1.9 mg/dl Total Bilirubin 1.2 mg/dl Aspartate Amino Transf (AST/SGOT) 53 U/L Alanine Aminotransferase (ALT/SGPT) 43 U/L Alkaline Phosphatase 42 U/L Total Protein 6.4 gm/dl Albumin 2.9 gm/dl Globulin 3.5 gm/dl Albumin/Globulin Ratio 0.8 Total Creatine Kinase 529 U/L Creatine Kinase MB 4.9 ng/ml Creatine Kinase MB Ratio 0.9 Troponin I 0.796 ng/ml Test 02/06/16 13:05 Activated Partial Thromboplast Time 138.9 SECONDS Partial Thromboplastin Ratio 5.3 Assessment and Plan 85 year old male with- Aspiration pneumonia- secondary to intractable vomiting. Aspiration precautions. Continue Zosyn. Speech therapy consulted. BC- negative. JACQUES- secondary dehydration. IV fluids increased. Hold nephrotoxins. Daily prp. Strict Ins and Outs. Daily weights. NSTEMI- secondary to demand ischemia. Patient denies chest pain. No ischemic changes on EKG. Trops trending downward. TTE- hyperdynamic, no regional wall motion abnormalities. Cardio on board. S/p mechanical fall- Patient reports having a mechanical fall yesterday. Cervical and thoracic spine Xrays ordered. Fall precautions. OT. PT. Vomiting- likely secondary to gastroenteritis. Resolved. Antiemetics prn. Diarrhea- likely secondary to gastroenteritis. SC-pending. C. diff- negative. Dispo- Awaiting cultures. PT/OT. Spoke with patient's at bedside. Discussed with cardiology- Dr. Bueno who recommends heparin gtt for 48 hrs , continue IV hydration, and follow up with outpatient cardiology.
[2016-02-06] MEDS ORDERED: OXYCODONE/ACETAMINOPHEN 5-325 TAB PO PRN (14:15)
[2016-02-06 15:35] LABS: PARTIAL THROMBOPLASTIN RATIO 3.3
[2016-02-06] MEDS: HEPARIN 25,000 UNIT/500ML D5W 500 ML IV PRN ×2 (15:56→19:28)
[2016-02-06] MEDS: ACETAMINOPHEN 325 MG TAB PO PRN (16:51)
[2016-02-06 17:48] LABS: MANUAL MICROSCOPIC REQUIRED? NO; REVIEW REQ? YES; URINE APPEARANCE TURBID (CLEAR); URINE BILIRUBIN NEG (NEG); URINE COLOR YELLOW; URINE EPITHELIAL CELL AUTO >30 /lpf (0-5); URINE NITRITE NEG (NEG); URINE SPECIFIC GRAVITY 1.014 (1.000-1.030); UROBILINOGEN NEG (NEG)
[2016-02-06 18:02] LABS: URINE PATH CASTS 0-3 GRANULAR CASTS /lpf (0)
--- NOTE | 2016-02-06 18:57 | DIAGNOSTIC IMAGING REPORT ---
CERVICAL SPINE 2 OR 3 VIEWS CLINICAL HISTORY: Neck pain status post trauma COMPARISON STUDY: 08/11/2014 FINDINGS: The prevertebral soft tissues are normal. There are advanced degenerative changes most pronounced the C5-6 and C6-7 levels. There are prominent anterior and small posterior osteophytes at these levels. IMPRESSION: Persistent moderately advanced degenerative change. No evidence of acute fracture or traumatic subluxation Electronically signed by: Hugh Winters M.D. 02/06/2016 6:56 PM
--- NOTE | 2016-02-06 18:59 | DIAGNOSTIC IMAGING REPORT ---
THORACIC SPINE 3 VIEWS ROUTINE CLINICAL HISTORY: Back pain status post trauma COMPARISON STUDY: 08/04/2014 FINDINGS: There is a mild S shaped thoracic spinal curvature. There are moderate multilevel degenerative changes with prominent anterior osteophytic spurring. No acute fractures or traumatic subluxations are visualized. The paraspinal line is not significantly displaced. Minimal irregularity anterior T12 endplate is likely chronic IMPRESSION: Moderately advanced multilevel degenerative change. No acute fractures or traumatic subluxations are visualized on conventional radiographic imaging Electronically signed by: Hugh Winters M.D. 02/06/2016 6:58 PM
[2016-02-06 22:21] LABS: PARTIAL THROMBOPLASTIN RATIO 3.8
[2016-02-07] VITALS (10 sets, daily range): BP systolic 92–146; BP diastolic 52–86; PULSE 75–93; TEMP 36.7–37; O2SAT 92–97
[2016-02-07] MEDS: PIPERACILL/TAZOBAC IV 3.375 GM in DEXTROSE 5% 100ML 100 ML IV SCH ×3 (02:32→18:05)
[2016-02-07] MEDS: ONDANSETRON INJ 2 MG/ML 2 ML VIAL IV PRN ×2 (03:55→19:03)
[2016-02-07] MEDS: SODIUM CHLORIDE 0.9% 1000ML 1,000 ML IV SCH ×3 (04:44→17:13)
[2016-02-07 05:07] LABS: PARTIAL THROMBOPLASTIN RATIO 2.8
[2016-02-07] MEDS: HEPARIN 25,000 UNIT/500ML D5W 500 ML IV PRN ×2 (05:36→12:20)
[2016-02-07] MEDS: ALBUT/IPRATROP 3MG/0.5MG NEB 3 ML VIAL INH SCH ×4 (07:39→19:09)
[2016-02-07] MEDS ORDERED: VANCOMYCIN INJ 1,000 MG in SODIUM CHLORIDE 0.9% 250ML 250 ML IV STA (07:50)
[2016-02-07] MEDS: PANTOprazole SOD 40 MG TAB PO SCH (07:52)
[2016-02-07] MEDS: SODIUM CHLORIDE 0.9% 500ML 500 ML IV SCH ×4 (08:15→09:48)
--- NOTE | 2016-02-07 08:52 | Cardiology Follow-Up ---
Cardiology Follow-Up Patient continues to deny cp, sob. abd discomfort seems worse. Rec GI eval. No cardiac procedures or stress tests planned. Please call if needed. Recommend hep drip for 48 hours total. f/u in the office after acute GI illness resolves.
[2016-02-07 09:29] LABS: BASO % 0.2 %; BASO ABS # 0.01 K/uL (0-0.2); COMPLETE YES; EOS % 1.1 %; HEMATOCRIT 36.7 % (42-52); IG% 0.2 %; LYMPH % 9.9 %; LYMPH ABS # 0.55 K/uL (1.2-3.4); MEAN CELL VOLUME 89.7 fL (80-100); MEAN CORPUSCULAR HEMOGLOBIN 29.8 pg (25-34); MEAN CORPUSCULAR HGB CONC 33.2 g/dl (32-36); MEAN PLATELET VOLUME 9.7 fL (7.4-10.4); MONO % 6.1 %; NEUT % 82.5 %; PLATELET COUNT 134 K/uL (130-400); RED BLOOD COUNT 4.09 M/uL (4.7-6.1); WHITE BLOOD COUNT 5.54 K/uL (4.8-10.8)
[2016-02-07] MEDS: PRIMIDONE 50 MG TAB PO SCH (09:32)
[2016-02-07] MEDS: CHOLECALCIFEROL 1000 INTER.UNIT TAB PO SCH (09:33)
[2016-02-07] MEDS: MAGNESIUM OXIDE 400 MG TAB PO SCH (09:33)
[2016-02-07] MEDS: MULTIVITAMIN TAB PO SCH (09:33)
[2016-02-07] MEDS: ASPIRIN 81 MG ECTAB PO SCH (09:33)
[2016-02-07] MEDS ORDERED: VANCOMYCIN CONSULT ACTIVE PRN (09:45)
[2016-02-07 09:51] LABS: CREATININE 2.3 mg/dl (0.60-1.40)
[2016-02-07 10:05] LABS: BUN/CREATININE RATIO 12.7 (10-20); CALCIUM 7.6 mg/dl (8.5-10.1); CREATININE 2.3 mg/dl (0.60-1.40); POTASSIUM 3.3 mmol/L (3.5-5.1)
[2016-02-07] MEDS ORDERED: VANCOMYCIN INJ 1,500 MG in SODIUM CHLORIDE 0.9% 500ML 500 ML IV ONE (10:30)
[2016-02-07 11:43] LABS: PARTIAL THROMBOPLASTIN RATIO 2.2
[2016-02-07] MEDS ORDERED: NURSING VERBAL MED ORDER ONE ×5 (12:45→20:00)
[2016-02-07] MEDS ORDERED: SODIUM CHLORIDE 0.9% 250ML 250 ML IV SCH (13:00)
[2016-02-07] MEDS ORDERED: POTASSIUM CHLORIDE 10 MEQ TABCR PO STA (13:53)
--- NOTE | 2016-02-07 14:39 | Progress Note ---
Subjective Date of Service: Feb 07, 2016. (Yanni Soliz PA-C) Subjective Pt evaluation today including: conversation w/ patient, conversation w/ family , physical exam, lab review, review of studies, review of inpatient medication list Patient seen and evaluated. Patient reports abdominal pain in LLQ that is sharp in nature and intermittent This pain is different then the pain from admission. C/O generalized weakness and has not noticed much improvement. Reports he feels that the diarrhea has increased. Denies urinary symptoms. Does not appear obstructive as patient is urinating and denies hesitancy or broken stream. Patient remains afebrile without leukocytosis (Yanni Soliz PA-C) Problem List Medical Problems: (1) PNA (pneumonia) Status: Acute (2) Sepsis Status: Acute (Yanni Soliz PA-C) Review of Systems Constitutional: No chills, No fever Respiratory: No cough, No shortness of breath Cardiac: No chest pain Abdomen: + diarrhea, + pain (LLQ sharp intermittent), No constipation, No nausea, No vomiting Musculoskeletal: No swelling Male : No dysuria, No slowing stream Endo: + fatigue Skin: No itch, No rash (Yanni Soliz PA-C) Medications Current Inpatient Medications Medications (Trade) Dose Ordered Sig/Karen Route Start Time Stop Time Status Last Admin Dose Admin Acetaminophen (Tylenol Tab) 650 mg Q4H PRN PO 02/05/16 13:15 03/06/16 13:14 02/06/16 16:51 650 MG Al Hydrox/Mg Hydrox/Simethicone (Maalox Max Susp) 15 ml Q4H PRN PO 02/05/16 13:15 03/06/16 13:14 Magnesium Hydroxide (Milk Of Magnesia Susp) 30 ml Q12H PRN PO 02/05/16 13:15 03/06/16 13:14 Ondansetron HCl (Zofran Inj) 4 mg Q6H PRN IV 02/05/16 13:15 03/06/16 13:14 02/07/16 03:55 4 MG Nitroglycerin (Nitrostat Tab) 0.4 mg UD PRN SL 02/05/16 13:15 03/06/16 13:14 Polyethylene 17 gm 17 gm DAILY PRN PO 02/05/16 13:15 03/06/16 13:14 Piperacillin Sod/ Tazobactam Sod/ Dextrose (Zosyn Iv/D5 100ml) 115 ml @ 28.75 mls/ hr Q8H IV 02/05/16 18:00 02/15/16 17:59 02/07/16 10:43 28.75 MLS/HR Albuterol/ Ipratropium 3 ml 3 ml QIDR INH 02/05/16 16:00 03/06/16 15:59 02/07/16 11:01 3 ML Sodium Chloride (Nss 1000ml) 1,000 ml @ 150 mls/hr Q6H40M IV 02/05/16 13:45 02/07/16 10:46 150 MLS/HR Aspirin (Ecotrin Tab) 81 mg DAILY PO 02/06/16 09:00 03/07/16 08:59 02/07/16 09:33 81 MG Cholecalciferol (Vitamin D Tab) 1,000 inter.unit DAILY PO 02/06/16 09:00 03/07/16 08:59 02/07/16 09:33 1,000 INTER.UNIT Magnesium Oxide (Mag-Ox Tab) 400 mg DAILY PO 02/06/16 09:00 03/07/16 08:59 02/07/16 09:33 400 MG Multivitamins (Multivitamin Tab) 1 tab DAILY PO 02/06/16 09:00 03/07/16 08:59 02/07/16 09:33 1 TAB Primidone (Mysoline Tab) 50 mg DAILY PO 02/06/16 09:00 03/07/16 08:59 02/07/16 09:32 50 MG Pantoprazole Sodium (Protonix Tab) 40 mg QAM PO 02/06/16 09:00 03/07/16 08:59 02/07/16 07:52 40 MG Piperacillin Sod/ Tazobactam Sod 1 ea 1 ea UD PRN N/A 02/05/16 14:45 03/06/16 14:44 Heparin Sodium/ Dextrose (Heparin 25,000 Unit/500ml D5W) 500 ml @ 16 mls/hr Q24H PRN IV 02/05/16 19:15 03/06/16 19:14 02/07/16 12:20 16 MLS/HR Oxycodone/ Acetaminophen (Percocet 5-325MG Tab) 1 tab Q6H PRN PO 02/06/16 14:15 02/20/16 14:14 Vancomycin HCl (Consult) 1 ea UD PRN N/A 02/07/16 09:45 03/08/16 09:44 (Yanni Soliz PA-C) Objective Vital Signs Date Time Temp Pulse Resp B/P Pulse Ox O2 Delivery O2 Flow Rate FiO2 02/07/16 12:47 Room Air 02/07/16 11:13 37.0 90 18 109/71 92 Room Air 02/07/16 11:03 91 18 93 Room Air 02/07/16 08:03 36.7 80 18 114/71 94 Room Air 02/07/16 08:00 Room Air 02/07/16 07:39 88 18 94 Room Air 02/07/16 04:00 Room Air 02/07/16 03:50 36.7 85 20 92/52 93 Room Air 02/07/16 00:00 Room Air 02/06/16 23:34 36.7 68 20 102/64 91 Room Air 02/06/16 19:30 37.0 93 20 100/63 90 Room Air 02/06/16 19:16 88 18 93 Room Air 02/06/16 16:07 36.8 104 20 103/67 93 Nasal Cannula 1.5 02/06/16 15:07 90 18 98 Nasal Cannula 2.0 (Yanni Soliz PA-C) Physical Exam General Appearance: WD/WN, no apparent distress, + pertinent finding (ill- appearing) Eyes: sclerae normal ENT: hearing grossly normal Neck: supple, no JVD, trachea midline Respiratory/Chest: normal breath sounds, no respiratory distress, no accessory muscle use, + crackles (minimal crackles bases bilat) Cardiovascular: regular rate, rhythm, no gallop, no murmur Abdomen: normal bowel sounds, soft, + tenderness (tenderness not increased with palpation) Extremities: no pedal edema, no calf tenderness Neurologic/Psychiatric: alert, oriented x 3 Skin: warm/dry (Yanni Soliz PA-C) Laboratory Results Last 24 Hours Test 02/06/16 14:53 02/06/16 16:20 02/06/16 21:50 02/07/16 04:40 Activated Partial Thromboplast Time 85.7 SECONDS 99.1 SECONDS 73.4 SECONDS Partial Thromboplastin Ratio 3.3 3.8 2.8 Urine Color YELLOW Urine Appearance TURBID Urine pH 5.0 Urine Specific Watkins 1.014 Urine Protein TRACE Urine Glucose (UA) NEG Urine Ketones NEG Urine Occult Blood 1+ Urine Nitrite NEG Urine Bilirubin NEG Urine Urobilinogen NEG Urine Leukocyte Esterase NEG Urine WBC (Auto) 10-30 /hpf Urine RBC (Auto) 0-4 /hpf Urine Hyaline Casts (Auto) 1-5 /lpf Urine Epithelial Cells (Auto) >30 /lpf Urine Bacteria (Auto) NEG Urine Renal Epithelial Cells /lpf Urine Crystals URIC ACID Urine Pathogenic Casts 0-3 GRANULAR CASTS /lpf Urine Yeast (Auto) Troponin I 0.351 ng/ml Test 02/07/16 09:10 02/07/16 11:23 White Blood Count 5.54 K/uL Red Blood Count 4.09 M/uL Hemoglobin 12.2 g/dL Hematocrit 36.7 % Mean Corpuscular Volume 89.7 fL Mean Corpuscular Hemoglobin 29.8 pg Mean Corpuscular Hemoglobin Concent 33.2 g/dl Platelet Count 134 K/uL Mean Platelet Volume 9.7 fL Neutrophils (%) (Auto) 82.5 % Lymphocytes (%) (Auto) 9.9 % Monocytes (%) (Auto) 6.1 % Eosinophils (%) (Auto) 1.1 % Basophils (%) (Auto) 0.2 % Neutrophils # (Auto) 4.57 K/uL Lymphocytes # (Auto) 0.55 K/uL Monocytes # (Auto) 0.34 K/uL Eosinophils # (Auto) 0.06 K/uL Basophils # (Auto) 0.01 K/uL RDW Standard Deviation 50.5 fL RDW Coefficient of Variation 15.3 % Immature Granulocyte % (Auto) 0.2 % Immature Granulocyte # (Auto) 0.01 K/uL Sodium Level 138 mmol/L Potassium Level 3.3 mmol/L Chloride Level 108 mmol/L Carbon Dioxide Level 19 mmol/L Anion Gap 11.0 mmol/L Blood Urea Nitrogen 29 mg/dl Creatinine 2.30 mg/dl Est Creatinine Clear Calc Drug Dose 26.8 ml/min Estimated GFR () 28.7 Estimated GFR (Non- 24.8 BUN/Creatinine Ratio 12.7 Random Glucose 112 mg/dl Calcium Level 7.6 mg/dl Random Vancomycin Level 8.3 mcg/ml Activated Partial Thromboplast Time 56.2 SECONDS Partial Thromboplastin Ratio 2.2 (Yanni Soliz, LUCIANA) Assessment and Plan Mr. Leung is a 85 y/o male with PMHx of Ulcerative Colitis S/P Partial Colectomy with Ileostomy (50 years ago), S/P Appendectomy, BPH S/P TURP, GERD, and MVP who presents to the ED complaining of nausea and vomiting that started last night and has remained consistent until approx 0900 this AM. Patient will be admitted to the telemetry floor for further evaluation and care. Nausea/Vomiting/Diarrhea: Gastroenteritis vs PNA vs Abdominal Etiology - Assessment - Patient afebrile, without leukocytosis, elevated lactic acid, vague abdominal pain, no presence of a cough - Imaging -- CXR - report and image reviewed - mild cardiomegaly without evidence of lobar consolidation -- CT Abd/Pelvis without contrast - limited given no contrast - evidence of possible aspiration -- Echo - hyperdynamic; no regional wall motion; EF 65-70% -- C. Diff and Stool Cx - negative -- UA and Cx - uric acid -- BCx - staph species x 1 - possible contamination - Zosyn and Vanc with pharmacy dosing - Continue aggressive hydration and monitor I & Os - received multiple NSS bolus - Replete electrolyte abnormalities - Duonebs QID and Q2H PRN - Zofran 4 mg IV Q6H PRN - Consult GI - appreciate recommendations -- LLQ abdominal tenderness S/P Ileostomy - limited scan abilities in setting of JACQUES Acute Kidney Injury: Baseline Unknown - Last Cr 1.10 (Sep 2015): - NSS 100 mL/hr - has received bolus in ED - Continue monitoring - serial BMPs Elevated Troponin: NSTEMI vs Demand Ischemia - EKG - reviewed - Sinus Tach without T wave inversions or obvious ischemic changes - Trops increased but trending down - Cardiology following - agree with recommendations - D/C Heparin gtt at 1900 - 48 hour coverage will be complete Hypotension: - Patient reports his BP is normally "very low" and has received NSS boluses in ED - Will hold Propranolol ER and Lisinopril at this time - will reinstitute when baseline vitals established Mechanical Fall: Prior to Admission 2/2 Intractable Vomiting - XR Thoracic and Cervical - image and report reviewed - degenerative changes no acute fractures GERD: - Protonix 40 mg daily as interchange for Omeprazole DVT Prophylaxis: - Heparin 5000 units Q12H Code Status: - FULL RESUSCITATION Disposition - Resident maico Hanson - PT/OT evaluation (Yanni Soliz, LUCIANA) Patient seen and examined at bedside. Chart, labs, imaging reviewed. Case discussed with LUCIANA Soliz. I agree with her assessment and plan. The patient reports having LLQ intermittent sharp pain. He reports having nausea, no vomiting. 85 year old male with- Aspiration pneumonia- secondary to intractable vomiting. Aspiration precautions. Continue Zosyn. Speech therapy consulted. BC- / gram positive cocci. Gram positive bacteremia- Vancomycin added. TTE reviewed.. Awaiting final cultures and sensitivity. JACQUES- secondary dehydration. IV fluids increased. Hold nephrotoxins. Daily prp. Strict Ins and Outs. Daily weights. NSTEMI- secondary to demand ischemia. Patient denies chest pain. No ischemic changes on EKG. Trops trending downward. TTE- hyperdynamic, no regional wall motion abnormalities. Cardio on board. S/p mechanical fall- Patient reports having a mechanical fall yesterday. Cervical and thoracic spine Xrays- no fractures or subluxation Fall precautions. OT. PT. Vomiting- likely secondary to gastroenteritis. Resolved. Antiemetics prn. Diarrhea- likely secondary to gastroenteritis. SC-pending. C. diff- negative. Dispo- Awaiting cultures. PT/OT. Spoke with patient's at bedside. Continue heparin gtt for 48 hrs- will d/c at 7pm, continue IV hydration, and follow up with outpatient cardiology. GI consulted. Patient transferred to PCU for closer monitoring. (Sayra Rodriguez MD)
--- NOTE | 2016-02-07 14:44 | Pharmacy Progress Note ---
Pharmacy Antibiotic Consult Date of Service: Feb 07, 2016. Pharmacy Dosing Scope Pharmacy is consulted to initiate vancomycin IV dosing therapy, order appropriate labs and adjust drug dose/frequency. Subjective The patient is a 85 year old male admitted on Feb 05, 2016 at 13:18. Objective Height (Feet): 6 Height (Inches): 2.00 Weight (Kilograms): 98.000 Lab Results (24hrs): Item Value Date Time Random Vancomycin Level 8.3 mcg/ml 02/07/16 0910 Laboratory Tests Test 02/07/16 09:10 BUN/Creatinine Ratio 12.7 Blood Urea Nitrogen 29 mg/dl Creatinine 2.30 mg/dl White Blood Count 5.54 K/uL Red Blood Count 4.09 M/uL Hemoglobin 12.2 g/dL Hematocrit 36.7 % Mean Corpuscular Volume 89.7 fL Mean Corpuscular Hemoglobin 29.8 pg Mean Corpuscular Hemoglobin Concent 33.2 g/dl Platelet Count 134 K/uL Mean Platelet Volume 9.7 fL Neutrophils (%) (Auto) 82.5 % Lymphocytes (%) (Auto) 9.9 % Monocytes (%) (Auto) 6.1 % Eosinophils (%) (Auto) 1.1 % Basophils (%) (Auto) 0.2 % Neutrophils # (Auto) 4.57 K/uL Lymphocytes # (Auto) 0.55 K/uL Monocytes # (Auto) 0.34 K/uL Eosinophils # (Auto) 0.06 K/uL Basophils # (Auto) 0.01 K/uL Micro Results: Item Value Date Time Urine Culture - Preliminary Resulted 02/06/16 1620 Urine , Clean Catch NO GROWTH - LESS THAN 1,000 COLONIES/... C.difficile Toxin B Gene (PCR) - Final Complete 02/05/16 1745 Stool No C. difficile toxin B gene detected MRSA DNA Surveillance Screen - Final Complete 02/05/16 1530 Nasal Specimen Negative for MRSA by DNA Probe Blood Culture - Preliminary Resulted 02/05/16 1140 Blood Staph Species Blood Culture - Preliminary Resulted 02/05/16 1135 Blood NO GROWTH TO DATE. Assessment & Plan Patient restarted on vancomycin (previously az'ed 02/04). BC x 1 now growing staph species, urine culture no growth to date, stool culture negative. Patient still receiving zosyn - started 02/04. Possible sources of infection include PNA vs. abdominal infection vs. gastroenteritis Vancomycin: * Random vancomycin was ~8 mcg/ml - will give partial LD of 1500 mg (~15 mg/kg) x 1 * Estimated kinetics: t1/2~26 hrs, ke~0.026 hr-1, CrCl ~26 ml/min * Baseline Scr closer to 1.1-1.3; due to elevated Scr will dose by levels * Will order a random level in the am to assist with further dosing, estimated level tomorrow am still >15 mcg/ml (goal 15-20 mcg/ml) Zosyn: * 3.375 gm iv q 8 hrs - appropriate for renal fxn CrCl >20 ml/min; continue same no changes Pharmacy will continue to follow and will adjust dose/frequency as necessary. Thank you
--- NOTE | 2016-02-07 16:14 | Gastroenterology Progress Note ---
Progress Note Subjective Pt evaluation today including: conversation w/ patient, physical exam, chart review (hospital chart. EMR [facility] saw Dr Kennedy 2013 for abd pain thought neuroma around ostomy site. EGD 02/2013 normal. ), lab review, review of studies , review of inpatient medication list Medications Current Inpatient Medications Medications (Trade) Dose Ordered Sig/Karen Route Start Time Stop Time Status Last Admin Dose Admin Acetaminophen (Tylenol Tab) 650 mg Q4H PRN PO 02/05/16 13:15 03/06/16 13:14 02/06/16 16:51 650 MG Al Hydrox/Mg Hydrox/Simethicone (Maalox Max Susp) 15 ml Q4H PRN PO 02/05/16 13:15 03/06/16 13:14 Magnesium Hydroxide (Milk Of Magnesia Susp) 30 ml Q12H PRN PO 02/05/16 13:15 03/06/16 13:14 Ondansetron HCl (Zofran Inj) 4 mg Q6H PRN IV 02/05/16 13:15 03/06/16 13:14 02/07/16 03:55 4 MG Nitroglycerin (Nitrostat Tab) 0.4 mg UD PRN SL 02/05/16 13:15 03/06/16 13:14 Polyethylene 17 gm 17 gm DAILY PRN PO 02/05/16 13:15 03/06/16 13:14 Piperacillin Sod/ Tazobactam Sod/ Dextrose (Zosyn Iv/D5 100ml) 115 ml @ 28.75 mls/ hr Q8H IV 02/05/16 18:00 02/15/16 17:59 02/07/16 10:43 28.75 MLS/HR Albuterol/ Ipratropium 3 ml 3 ml QIDR INH 02/05/16 16:00 03/06/16 15:59 02/07/16 15:19 3 ML Sodium Chloride (Nss 1000ml) 1,000 ml @ 150 mls/hr Q6H40M IV 02/05/16 13:45 02/07/16 10:46 150 MLS/HR Aspirin (Ecotrin Tab) 81 mg DAILY PO 02/06/16 09:00 03/07/16 08:59 02/07/16 09:33 81 MG Cholecalciferol (Vitamin D Tab) 1,000 inter.unit DAILY PO 02/06/16 09:00 03/07/16 08:59 02/07/16 09:33 1,000 INTER.UNIT Magnesium Oxide (Mag-Ox Tab) 400 mg DAILY PO 02/06/16 09:00 03/07/16 08:59 02/07/16 09:33 400 MG Multivitamins (Multivitamin Tab) 1 tab DAILY PO 02/06/16 09:00 03/07/16 08:59 02/07/16 09:33 1 TAB Primidone (Mysoline Tab) 50 mg DAILY PO 02/06/16 09:00 03/07/16 08:59 02/07/16 09:32 50 MG Pantoprazole Sodium (Protonix Tab) 40 mg QAM PO 02/06/16 09:00 03/07/16 08:59 02/07/16 07:52 40 MG Piperacillin Sod/ Tazobactam Sod 1 ea 1 ea UD PRN N/A 02/05/16 14:45 03/06/16 14:44 Heparin Sodium/ Dextrose (Heparin 25,000 Unit/500ml D5W) 500 ml @ 16 mls/hr Q24H PRN IV 02/05/16 19:15 02/07/16 12:20 16 MLS/HR Oxycodone/ Acetaminophen (Percocet 5-325MG Tab) 1 tab Q6H PRN PO 02/06/16 14:15 02/20/16 14:14 Vancomycin HCl (Consult) 1 ea UD PRN N/A 02/07/16 09:45 03/08/16 09:44 Miscellaneous (Stop Order) 1 ea TODAY@1900 ONCE N/A 02/07/16 19:00 02/07/16 19:01 Objective Vital Signs Date Time Temp Pulse Resp B/P Pulse Ox O2 Delivery O2 Flow Rate FiO2 02/07/16 15:19 88 18 97 Room Air 02/07/16 12:47 Room Air 02/07/16 11:13 37.0 90 18 109/71 92 Room Air 02/07/16 11:03 91 18 93 Room Air 02/07/16 08:03 36.7 80 18 114/71 94 Room Air 02/07/16 08:00 Room Air 02/07/16 07:39 88 18 94 Room Air 12/22/16 04:00 Room Air 02/07/16 03:50 36.7 85 20 92/52 93 Room Air 02/07/16 00:00 Room Air 02/06/16 23:34 36.7 68 20 102/64 91 Room Air 02/06/16 19:30 37.0 93 20 100/63 90 Room Air 02/06/16 19:16 88 18 93 Room Air Laboratory Results Last 24 Hours Test 02/06/16 16:20 02/06/16 21:50 02/07/16 04:40 02/07/16 09:10 Urine Color YELLOW Urine Appearance TURBID Urine pH 5.0 Urine Specific [place] 1.014 Urine Protein TRACE Urine Glucose (UA) NEG Urine Ketones NEG Urine Occult Blood 1+ Urine Nitrite NEG Urine Bilirubin NEG Urine Urobilinogen NEG Urine Leukocyte Esterase NEG Urine WBC (Auto) 10-30 /hpf Urine RBC (Auto) 0-4 /hpf Urine Hyaline Casts (Auto) 1-5 /lpf Urine Epithelial Cells (Auto) >30 /lpf Urine Bacteria (Auto) NEG Urine Renal Epithelial Cells /lpf Urine Crystals URIC ACID Urine Pathogenic Casts 0-3 GRANULAR CASTS /lpf Urine Yeast (Auto) Activated Partial Thromboplast Time 99.1 SECONDS 73.4 SECONDS Partial Thromboplastin Ratio 3.8 2.8 Troponin I 0.351 ng/ml White Blood Count 5.54 K/uL Red Blood Count 4.09 M/uL Hemoglobin 12.2 g/dL Hematocrit 36.7 % Mean Corpuscular Volume 89.7 fL Mean Corpuscular Hemoglobin 29.8 pg Mean Corpuscular Hemoglobin Concent 33.2 g/dl Platelet Count 134 K/uL Mean Platelet Volume 9.7 fL Neutrophils (%) (Auto) 82.5 % Lymphocytes (%) (Auto) 9.9 % Monocytes (%) (Auto) 6.1 % Eosinophils (%) (Auto) 1.1 % Basophils (%) (Auto) 0.2 % Neutrophils # (Auto) 4.57 K/uL Lymphocytes # (Auto) 0.55 K/uL Monocytes # (Auto) 0.34 K/uL Eosinophils # (Auto) 0.06 K/uL Basophils # (Auto) 0.01 K/uL RDW Standard Deviation 50.5 fL RDW Coefficient of Variation 15.3 % Immature Granulocyte % (Auto) 0.2 % Immature Granulocyte # (Auto) 0.01 K/uL Sodium Level 138 mmol/L Potassium Level 3.3 mmol/L Chloride Level 108 mmol/L Carbon Dioxide Level 19 mmol/L Anion Gap 11.0 mmol/L Blood Urea Nitrogen 29 mg/dl Creatinine 2.30 mg/dl Est Creatinine Clear Calc Drug Dose 26.8 ml/min Estimated GFR () 28.7 Estimated GFR (Non- 24.8 BUN/Creatinine Ratio 12.7 Random Glucose 112 mg/dl Calcium Level 7.6 mg/dl Random Vancomycin Level 8.3 mcg/ml Test 02/07/16 11:23 Activated Partial Thromboplast Time 56.2 SECONDS Partial Thromboplastin Ratio 2.2 Assessment and Plan GI consult dictated Job [id number] LLQ pain N/V Diarrhea Acute onset of above suggests gastroenteriritis--stool cx negativve so far and cdiff negative. Influenza negative. Check stools for WBC, O/P, Giardia Ag , Cryptosporidia Ag, may be viral gastroenteritis as well. Doubt crohns disease. No evidence of ischemic bowel on CT scan. Continue supportive care. Elevated LFTS--improving, follow for now. May be related to above process.
[2016-02-07] MEDS ORDERED: HEPARIN DRIP~STOP ORDER ONE (19:00)
[2016-02-07] MEDS: ACETAMINOPHEN 325 MG TAB PO PRN ×2 (19:03→23:13)
[2016-02-07] MEDS: CHOLESTYRAMINE LIGHT 4 GM PKT PO SCH (20:46)
--- NOTE | 2016-02-07 20:46 | DIAGNOSTIC IMAGING REPORT ---
KUB CLINICAL HISTORY: abd pain pain COMPARISON STUDY: 12/27/2013 FINDINGS: Air-filled minimally distended loops of small bowel. Air persists within the a sending and transverse colonic regions. No secondary signs of free air. IMPRESSION: Ileus versus partial small bowel obstruction. Electronically signed by: Melvin Cota M.D. 02/07/2016 8:45 PM
--- NOTE | 2016-02-07 20:48 | DIAGNOSTIC IMAGING REPORT ---
CHEST 1 VW FRONT-NOT PORTABLE CLINICAL HISTORY: TACHYPNEA dyspnea COMPARISON STUDY: 02/05/2016 FINDINGS: Moderate stable cardiomegaly. Slightly progressive bibasilar atelectatic and pleural reactive change. Mid and upper lungs are clear. IMPRESSION: Slightly progressive bibasilar pleural reactive change and atelectatic change. Mild stable cardia megaly. Electronically signed by: Melvin Cota M.D. 02/07/2016 8:46 PM
[2016-02-07] MEDS ORDERED: LORAZEPAM 0.5 MG TAB PO STA (22:50)
[2016-02-08] VITALS (10 sets, daily range): BP systolic 112–127; BP diastolic 67–79; PULSE 69–93; TEMP 36.5–36.9; O2SAT 93–98
--- NOTE | 2016-02-08 00:06 | GASTROINTESTINAL CONSULTATION ---
DATE OF CONSULTATION: 02/07/2016 REQUESTING PHYSICIAN: Hospitalist Service. REASON FOR CONSULTATION: Left lower quadrant pain and ileostomy. CHIEF COMPLAINT: The patient has abdominal pain, nausea and vomiting. 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 He states he has stable soft stools out of the ileostomy at basesline and has some intermittent mild abdominal pains are thought maybe secondary to adhesions; however, he developed prior to admission abrupt onset in the middle of the night of nausea, vomiting, and abdominal pain, epigastric then left lower quadrant, profuse diarrhea. He also fell in the bathroom. He came in the Emergency Room with low blood pressure, elevated lactic acid and ultimately had an ME thought secondary to volume status. He has renal insufficiency as well. The pain now is in the the left lower quadrant, stools have not improved, still nauseated. No change in his weight. No fever. He has a history of heartburn. No history of liver disease. Did review note from Dr. Kennedy 05/26/2013. In the last encounter there, he has had epigastric pain. Ultrasound shows some gallstones, celiac testing was negative. CT showed some fatty pancreas. EGD was normal. He thought the pain in the epigastric area was neuroma near the incision. ALLERGIES: ADHESIVES. MEDICATIONS ON ADMISSION: Include aspirin, vitamin D, glucosamine chondroitin, Zestril, magnesium, multivitamin, Prilosec, primidone, propranolol, and fish oil. PROBLEMS AND SURGERY: BPH, GERD, history of a TURP. FAMILY HISTORY: ME. SOCIAL HISTORY: Tobacco, quit. Ethanol negative. REVIEW OF SYSTEMS: CONSTITUTIONAL: Weak. EYES: Negative. EAR, NOSE, MOUTH, AND THROAT: History of some nasal symptoms. CARDIOVASCULAR: Negative. RESPIRATORY: Shortness of breath on admission, not now. MUSCULOSKELETAL: Negative. INTEGUMENTARY: Eczema on the chest. PSYCHIATRIC: Otherwise negative. ENDOCRINE: Otherwise negative. HEMATOLOGIC: Otherwise negative. LYMPHATIC: Otherwise negative. PHYSICAL EXAMINATION: GENERAL: Currently male, appears stated age in no acute distress. VITAL SIGNS: Most recent vital signs in the chart, temp 37, pulse 88, respirations 18, BP 109/71, O2 saturation 97% on room air. EYES: Conjunctivae and lids normal. ENT: Oropharynx clear. NECK: Without obvious mass or thyroid enlargement. RESPIRATORY: Normal effort, clear to anterior auscultation. CARDIOVASCULAR: Regular rate and rhythm. EXTREMITIES: Without obvious edema. ABDOMEN: Positive bowel sounds, soft, no guarding or rebound. No obvious organomegaly or masses are appreciated. The ostomy in the right mid abdomen noted. the mucosa was pink indicating normal perfusion. The patient thinks it is a little bit more edematous than normal. I palpated the ostomy site and there was no tenderness, no erosions were noted. It was an inverted with some mild protrusion. LYMPHATIC: No obvious neck or groin nodes. MUSCULOSKELETAL: Digits and nails were normal. NEUROLOGIC: Cranial nerves intact. Sensation intact. PSYCHIATRIC: Recent and remote memory good. Insight and judgment good. IMAGING DATA: Chest x-ray on admission, cardiomegaly and thoracic spine x-ray, DJD, abdomen and pelvic CT scan, no oral or IV contrast, duodenal diverticulum, stones and sludge in the gallbladder, fatty liver, left inguinal hernia, questionable right anterior omental infarct versus postoperative change. LABORATORY DATA: Slightly elevated LFTs. BUN and creatinine are elevated as well. The LFTs when he was admitted; total bilirubin 1.4, AST 50, otherwise unremarkable and then on February 05, total bili 1.2, AST 53. IMPRESSION AND PLAN: 1. Left lower quadrant pain. 2. Nausea and vomiting. 3. Diarrhea. The acute onset above suggests some type of gastroenteritis either viral or bacterial. Stool cultures are negative so far. Clostridium difficile is negative. Recommend checking stools for WBCs to see if this is inflammatory or not. We will check O&P. Check Giardia antigen, cryptosporidium antigen. Could be viral gastroenteritis as well. I doubt Crohn's disease with the acute onset. Recommend symptomatic treatment for now. 4. Elevated LFTs. I will follow that that could be related to what is going on above. MTDD
[2016-02-08] MEDS ORDERED: MoRPHine SULFATE 4 MG/ML 1 ML CARP\\VIAL IV STA (00:49)
[2016-02-08] MEDS ORDERED: MoRPHine SULFATE 4 MG/ML 1 ML CARP\\VIAL ONE (01:05)
[2016-02-08] MEDS: ONDANSETRON INJ 2 MG/ML 2 ML VIAL IV PRN ×2 (01:05→15:15)
[2016-02-08] MEDS: SODIUM CHLORIDE 0.9% 1000ML 1,000 ML IV SCH ×2 (01:07→07:58)
[2016-02-08] MEDS: PIPERACILL/TAZOBAC IV 3.375 GM in DEXTROSE 5% 100ML 100 ML IV SCH ×3 (02:16→18:20)
[2016-02-08 04:33] LABS: BASO % 0.4 %; BASO ABS # 0.02 K/uL (0-0.2); EOS % 1.7 %; LYMPH % 7.9 %; LYMPH ABS # 0.38 K/uL (1.2-3.4); MEAN CELL VOLUME 89.5 fL (80-100); MEAN PLATELET VOLUME 9.3 fL (7.4-10.4); MONO % 10.7 %; NEUT % 79.3 %; PLATELET COUNT 115 K/uL (130-400); WHITE BLOOD COUNT 4.84 K/uL (4.8-10.8)
[2016-02-08 04:38] LABS: COMPLETE YES; MEAN CORPUSCULAR HGB CONC 33.5 g/dl (32-36)
[2016-02-08 04:53] LABS: PARTIAL THROMBOPLASTIN RATIO 1.1
[2016-02-08 05:04] LABS: BUN/CREATININE RATIO 11.5 (10-20); CALCIUM 7.1 mg/dl (8.5-10.1)
[2016-02-08] MEDS: CHOLESTYRAMINE LIGHT 4 GM PKT PO SCH (07:30)
[2016-02-08] MEDS: ALBUT/IPRATROP 3MG/0.5MG NEB 3 ML VIAL INH SCH ×4 (07:31→19:17)
[2016-02-08] MEDS: MULTIVITAMIN TAB PO SCH (07:52)
[2016-02-08] MEDS: ASPIRIN 81 MG ECTAB PO SCH (07:52)
[2016-02-08] MEDS: MAGNESIUM OXIDE 400 MG TAB PO SCH (07:52)
[2016-02-08] MEDS: PRIMIDONE 50 MG TAB PO SCH (07:52)
[2016-02-08] MEDS: PANTOprazole SOD 40 MG TAB PO SCH (07:52)
[2016-02-08] MEDS: CHOLECALCIFEROL 1000 INTER.UNIT TAB PO SCH (07:52)
--- NOTE | 2016-02-08 09:26 | Pharmacy Progress Note ---
Pharmacy Antibiotic Prog Note Date of Service: Feb 08, 2016. Subjective: The patient is currently receiving vancomycin and piperacillin/tazobactam for gastroenteritis vs. pnx vs abdominal infection vs positive blood culture The patient is currently on day # 2 of vancomycin and day # 4 of piperacillin/ tazobactam IV therapy. Objective: Height (Feet): 6 Height (Inches): 2.00 Weight (Kilograms): 100.000 Levels: Item Value Date Time Random Vancomycin Level 12.6 mcg/ml 02/08/16 0425 Lab Results (24hrs): Laboratory Tests Test 02/08/16 04:25 BUN/Creatinine Ratio 11.5 Blood Urea Nitrogen 23 mg/dl Creatinine 2.00 mg/dl White Blood Count 4.84 K/uL Red Blood Count 3.80 M/uL Hemoglobin 11.4 g/dL Hematocrit 34.0 % Mean Corpuscular Volume 89.5 fL Mean Corpuscular Hemoglobin 30.0 pg Mean Corpuscular Hemoglobin Concent 33.5 g/dl Platelet Count 115 K/uL Mean Platelet Volume 9.3 fL Neutrophils (%) (Auto) 79.3 % Lymphocytes (%) (Auto) 7.9 % Monocytes (%) (Auto) 10.7 % Eosinophils (%) (Auto) 1.7 % Basophils (%) (Auto) 0.4 % Neutrophils # (Auto) 3.84 K/uL Lymphocytes # (Auto) 0.38 K/uL Monocytes # (Auto) 0.52 K/uL Eosinophils # (Auto) 0.08 K/uL Basophils # (Auto) 0.02 K/uL Micro Results: Item Value Date Time Blood Culture - Preliminary Resulted 02/05/16 1135 Blood NO GROWTH TO DATE. Blood Culture - Preliminary Resulted 02/05/16 1140 Blood Staph Species MRSA DNA Surveillance Screen - Final Complete 02/05/16 1530 Nasal Specimen Negative for MRSA by DNA Probe Shiga Toxin Test - Final Complete 02/05/16 1745 Stool No E. Coli shiga toxin 1 or shiga tox... C.difficile Toxin B Gene (PCR) - Final Complete 02/05/16 1745 Stool No C. difficile toxin B gene detected Urine Culture - Preliminary Resulted 02/06/16 1620 Urine , Clean Catch NO GROWTH - LESS THAN 1,000 COLONIES/... WBC Smear - Final Complete 02/07/16 1925 Stool Item Value Date Time Influenza Type B Antigen Neg for Influ B 02/05/16 1135 Influenza Type A Antigen Neg for Influ A 02/05/16 1135 Recent Pertinent Medications: As per above Assessment & Plan: Assessment: * Patient restarted on vancomycin 02/06 (previously dc'ed 02/04). * BC x 1 now growing staph species, urine culture no growth to date, stool culture negative. * Possible sources of infection include PNA vs. abdominal infection vs. gastroenteritis * Serum creatinine improved, but still much above baseline Plan: * Continue broad-spectrum ABX at this time Vancomycin * 1500mg IV x1 dose now. * Continue to dose per level as renal function fluctuates Piperacillin/tazobactam * Continue 3.375g IV every 8 hours (infuse over 4h per dose) * no dose adj for CrCl above 20mL/min Labs: * Serum creatinine - ordered by provider * vancomycin random level 12/24 AM Pharmacy will continue to follow and will adjust dose/frequency as necessary. Thank you
[2016-02-08] MEDS ORDERED: VANCOMYCIN INJ 1,500 MG in SODIUM CHLORIDE 0.9% 500ML 500 ML IV ONE (10:00)
--- NOTE | 2016-02-08 10:07 | DIAGNOSTIC IMAGING REPORT ---
CT SCAN OF THE ABDOMEN AND PELVIS WITHOUT CONTRAST CLINICAL HISTORY: No new, sepsis. COMPARISON STUDY: 02/05/2016 TECHNIQUE: CT scan of the abdomen and pelvis was performed from the lung bases to the proximal femurs. Images are reviewed in the axial, sagittal, and coronal planes. IV contrast was not administered for this examination. CT DOSE: 765.16 mGy.cm FINDINGS: Lower chest: There are trace bilateral pleural effusions. There is a stable 9 mm right middle lobe pulmonary nodule. There is bibasilar peribronchial thickening. There are bilateral lower lobe airspace opacities right greater than left. There is a small hiatal hernia Liver: There is peripheral gas within the left lobe the liver, possibly representing portal venous gas. There is perihepatic fluid present. Gallbladder: There is mild gallbladder distention. There are stones and sludge within the gallbladder. There is trace pericholecystic fluid. Spleen: Normal in size and attenuation. Pancreas: There is mild fatty atrophy. No masses are visualized. Adrenal glands: Unremarkable. Kidneys: There is a punctate nonobstructing right renal calculus. There is mild bilateral perinephric stranding. There is a 1 cm upper pole right renal cyst. There is no hydronephrosis. No ureteral or bladder calculi are visualized. Bowel: There are postsurgical changes of a prior colectomy. There is a right lower quadrant ostomy. There are dilated proximal small bowel loops with air-fluid levels. The distal small bowel is of normal caliber. The findings are consistent with a small bowel obstruction. Peritoneum: No free air is visualized. There is trace perihepatic fluid. There are bilateral fat-containing hernias. Postsurgical changes are present in the region of the right inguinal canal. Vasculature: The abdominal aorta is normal in course and caliber. Adenopathy: None. Pelvic viscera: The bladder, and pelvic viscera are unremarkable. Skeletal structures: No destructive osseous lesions are seen. IMPRESSION: 1. Small bowel obstructive pattern 2. Gas within the left lobe of the liver demonstrating a peripheral distribution. This raises the possibility of portal venous gas 3. Stones and sludge within the gallbladder 4. Small amount pericholecystic and perihepatic fluid 5. Trace bilateral pleural effusions and bibasilar airspace opacities right greater than left 6. Nonobstructing punctate right renal calculus 7. Fat-containing inguinal hernias 8. Given the small bowel obstructive pattern and possible portal venous gas within the liver, surgical consultation is recommended Electronically signed by: Hugh Winters M.D. 02/08/2016 10:05 AM
--- NOTE | 2016-02-08 10:24 | Progress Note ---
Progress Note Patient seen and examined at bedside. Chart, labs, imaging reviewed. Case discussed with LUCIANA Soliz. I agree with her assessment and plan. The patient transferred to PCU yesterday for closer monitoring. Last night patient with abdominal distension and pain, KUB showed ileus vs SBO. He reports marked improvement in nausea, no vomiting. He denies any chest pain, SOB, palpitations. He reports having semi-formed stool. 85 year old male with- SBO with portal venous gas in liver- NPO. Continue IV hydration. Surgery consulted. Possible cholecystitis- NPO. Continue IV antibiotics. Surgery consulted. Aspiration pneumonia- secondary to intractable vomiting. Aspiration precautions. Continue Zosyn. Speech therapy consulted. BC- / gram positive cocci- Staph sp. Gram positive bacteremia- Vancomycin added. TTE reviewed.. Awaiting final cultures and sensitivity. JACQUES- secondary dehydration. Improving. Continue IV fluids. Hold nephrotoxins. Daily prp. Strict Ins and Outs. Daily weights. NSTEMI- secondary to demand ischemia. Patient denies chest pain. No ischemic changes on EKG. Trops trending downward. TTE- hyperdynamic, no regional wall motion abnormalities. Cardio on board. S/p mechanical fall- Patient reports having a mechanical fall prior to admission. . Cervical and thoracic spine Xrays- no fractures or subluxation Fall precautions. OT. PT. Vomiting- likely secondary to gastroenteritis. Resolved. Antiemetics prn. Diarrhea- likely secondary to gastroenteritis. SC-negative, ova and parasite pending. C. diff- negative. Dispo- Awaiting cultures. PT/OT. Spoke with patient's at bedside. Appreciate GI and Surgery recommendations. Please see LUCIANA Soliz's progress note.
--- NOTE | 2016-02-08 10:46 | Gastroenterology Progress Note ---
Progress Note Date of Service: Feb 08, 2016 Subjective Pt evaluation today including: conversation w/ patient, conversation w/ family (), physical exam, chart review, lab review, review of studies, review of inpatient medication list CC f/u abd pain HPI Pt states maybe about 630-7pm he had a marked change of his abd pain and location for mild pain LLQ to "12/10" pain periumbilical. He states received some morphine overnight and he has less pain than last night. States last night when examined he had intense abd pain. CT from this am reviewed with SBO and air in portal venous system noted. No vomiting and not nauseated at present. Review of Systems Respiratory: No shortness of breath Cardiac: No chest pain Medications Current Inpatient Medications Medications (Trade) Dose Ordered Sig/Karen Route Start Time Stop Time Status Last Admin Dose Admin Acetaminophen (Tylenol Tab) 650 mg Q4H PRN PO 02/05/16 13:15 03/06/16 13:14 02/07/16 23:13 650 MG Al Hydrox/Mg Hydrox/Simethicone (Maalox Max Susp) 15 ml Q4H PRN PO 02/05/16 13:15 03/06/16 13:14 Magnesium Hydroxide (Milk Of Magnesia Susp) 30 ml Q12H PRN PO 02/05/16 13:15 03/06/16 13:14 Ondansetron HCl (Zofran Inj) 4 mg Q6H PRN IV 02/05/16 13:15 03/06/16 13:14 02/08/16 01:05 4 MG Nitroglycerin (Nitrostat Tab) 0.4 mg UD PRN SL 02/05/16 13:15 03/06/16 13:14 Polyethylene 17 gm 17 gm DAILY PRN PO 02/05/16 13:15 03/06/16 13:14 Piperacillin Sod/ Tazobactam Sod/ Dextrose (Zosyn Iv/D5 100ml) 115 ml @ 28.75 mls/ hr Q8H IV 02/05/16 18:00 02/15/16 17:59 02/08/16 02:16 28.75 MLS/HR Albuterol/ Ipratropium 3 ml 3 ml QIDR INH 02/05/16 16:00 03/06/16 15:59 02/08/16 07:31 3 ML Sodium Chloride (Nss 1000ml) 1,000 ml @ 80 mls/hr [id number] IV 02/05/16 13:45 02/08/16 07:58 150 MLS/HR Aspirin (Ecotrin Tab) 81 mg DAILY PO 02/06/16 09:00 03/07/16 08:59 02/08/16 07:52 81 MG Cholecalciferol (Vitamin D Tab) 1,000 inter.unit DAILY PO 02/06/16 09:00 03/07/16 08:59 02/08/16 07:52 1,000 INTER.UNIT Magnesium Oxide (Mag-Ox Tab) 400 mg DAILY PO 02/06/16 09:00 03/07/16 08:59 02/08/16 07:52 400 MG Multivitamins (Multivitamin Tab) 1 tab DAILY PO 02/06/16 09:00 03/07/16 08:59 02/08/16 07:52 1 TAB Primidone (Mysoline Tab) 50 mg DAILY PO 02/06/16 09:00 03/07/16 08:59 02/08/16 07:52 50 MG Pantoprazole Sodium (Protonix Tab) 40 mg QAM PO 02/06/16 09:00 03/07/16 08:59 02/08/16 07:52 40 MG Piperacillin Sod/ Tazobactam Sod 1 ea 1 ea UD PRN N/A 02/05/16 14:45 03/06/16 14:44 Heparin Sodium/ Dextrose (Heparin 25,000 Unit/500ml D5W) 500 ml @ 16 mls/hr Q24H PRN IV 02/05/16 19:15 02/07/16 12:20 16 MLS/HR Oxycodone/ Acetaminophen (Percocet 5-325MG Tab) 1 tab Q6H PRN PO 02/06/16 14:15 02/20/16 14:14 Vancomycin HCl (Consult) 1 ea UD PRN N/A 02/07/16 09:45 03/08/16 09:44 Cholestyramine Resin (Questran Powder Light) 4 gm BIDM PO 02/07/16 21:00 03/08/16 20:59 Heparin Sodium (Porcine) (Heparin Sq 5000 Unit/0.5ml) 5,000 unit Q12 SQ 02/08/16 09:00 03/09/16 08:59 Morphine Sulfate (MoRPHine SULFATE INJ) 2 mg Q3H PRN IV 02/08/16 07:45 02/22/16 07:44 Morphine Sulfate 1 mg 1 mg Q3H PRN IV 02/08/16 07:45 02/22/16 07:44 Vancomycin HCl/ Sodium Chloride (Vancomycin Inj/ Nss 500ml) 530 ml @ 200 mls/hr 1000 ONCE IV 02/08/16 10:00 02/08/16 12:38 Objective Vital Signs Date Time Temp Pulse Resp B/P Pulse Ox O2 Delivery O2 Flow Rate FiO2 02/08/16 08:00 Room Air 02/08/16 07:46 36.7 72 18 112/67 96 Room Air 02/08/16 07:31 69 18 96 Room Air 02/08/16 04:00 Room Air 02/08/16 03:22 36.5 80 20 113/73 97 Room Air 02/07/16 23:59 Room Air 02/07/16 23:41 36.7 75 20 129/86 96 Room Air 02/07/16 20:00 Room Air 02/07/16 19:47 36.7 85 19 146/75 96 Room Air 02/07/16 16:51 94 Room Air 02/07/16 16:13 36.9 93 18 104/73 94 Room Air 02/07/16 15:19 88 18 97 Room Air 02/07/16 12:47 Room Air 02/07/16 11:13 37.0 90 18 109/71 92 Room Air 02/07/16 11:03 91 18 93 Room Air Physical Exam General Appearance: WD/WN, no apparent distress Cardiovascular: regular rate, rhythm Abdomen: normal bowel sounds, soft, no organomegaly, no pulsatile mass, + pertinent finding (soft, no guarding nor rebound) Laboratory Results Last 24 Hours Test 02/07/16 11:23 02/07/16 19:25 02/08/16 04:25 02/08/16 10:13 Activated Partial Thromboplast Time 56.2 SECONDS 29.6 SECONDS Partial Thromboplastin Ratio 2.2 1.1 White Blood Count 4.84 K/uL Red Blood Count 3.80 M/uL Hemoglobin 11.4 g/dL Hematocrit 34.0 % Mean Corpuscular Volume 89.5 fL Mean Corpuscular Hemoglobin 30.0 pg Mean Corpuscular Hemoglobin Concent 33.5 g/dl Platelet Count 115 K/uL Mean Platelet Volume 9.3 fL Neutrophils (%) (Auto) 79.3 % Lymphocytes (%) (Auto) 7.9 % Monocytes (%) (Auto) 10.7 % Eosinophils (%) (Auto) 1.7 % Basophils (%) (Auto) 0.4 % Neutrophils # (Auto) 3.84 K/uL Lymphocytes # (Auto) 0.38 K/uL Monocytes # (Auto) 0.52 K/uL Eosinophils # (Auto) 0.08 K/uL Basophils # (Auto) 0.02 K/uL RDW Standard Deviation 49.8 fL RDW Coefficient of Variation 15.2 % Immature Granulocyte % (Auto) 0.0 % Immature Granulocyte # (Auto) 0.00 K/uL Sodium Level 142 mmol/L Potassium Level 4.0 mmol/L Chloride Level 109 mmol/L Carbon Dioxide Level 22 mmol/L Anion Gap 11.0 mmol/L Blood Urea Nitrogen 23 mg/dl Creatinine 2.00 mg/dl Est Creatinine Clear Calc Drug Dose 30.8 ml/min Estimated GFR () 34.0 Estimated GFR (Non- 29.3 BUN/Creatinine Ratio 11.5 Random Glucose 112 mg/dl Calcium Level 7.1 mg/dl Magnesium Level 2.0 mg/dl Random Vancomycin Level 12.6 mcg/ml Assessment and Plan CT findings: IMPRESSION: 1. Small bowel obstructive pattern 2. Gas within the left lobe of the liver demonstrating a peripheral distribution. This raises the possibility of portal venous gas 3. Stones and sludge within the gallbladder 4. Small amount pericholecystic and perihepatic fluid 5. Trace bilateral pleural effusions and bibasilar airspace opacities right greater than left 6. Nonobstructing punctate right renal calculus 7. Fat-containing inguinal hernias 8. Given the small bowel obstructive pattern and possible portal venous gas within the liver, surgical consultation is recommended A/P SBO with portal venous gas-- CBC,CMP, PT, lactic acid ordered stat, Had nl WBC and C02 with early am labs. Called Dr Auguste with general surgery and went over case and my impression that worse case scenario this is bowel. He states will see him soon. Definite change in CT findings versus admit CT as well. Abdominal pain--periumbilical---abrupt change in his condition since I saw him in consult yesterday----intense last night better this am. suspect from SBO and sequelae as above. N/V--improved Diarrhea----stool WBCs negative--Giardia, Cryptsporidia, and O and P pending; could be related to process causing SBO above. Acute onset of above suggests gastroenteriritis--stool cx negativve so far and cdiff negative. Influenza negative. Check stools for WBC, O/P, Giardia Ag , Cryptosporidia Ag, may be viral gastroenteritis as well. Doubt crohns disease. No evidence of ischemic bowel on CT scan. Continue supportive care. Elevated LFTS--CMP just ordered.
[2016-02-08 10:48] LABS: BASO % 0.4 %; BASO ABS # 0.02 K/uL (0-0.2); EOS % 3.6 %; HEMATOCRIT 38.7 % (42-52); IG% 0.2 %; LYMPH % 9.6 %; LYMPH ABS # 0.53 K/uL (1.2-3.4); MEAN CELL VOLUME 89.4 fL (80-100); MEAN CORPUSCULAR HEMOGLOBIN 29.8 pg (25-34); MEAN PLATELET VOLUME 9.6 fL (7.4-10.4); MONO % 10.5 %; NEUT % 75.7 %; PLATELET COUNT 141 K/uL (130-400); RED BLOOD COUNT 4.33 M/uL (4.7-6.1); WHITE BLOOD COUNT 5.51 K/uL (4.8-10.8)
[2016-02-08] MEDS: HEPARIN SOD 5000 UNIT/0.5 ML CARP SQ SCH ×2 (10:50→21:10)
[2016-02-08 10:54] LABS: COMPLETE YES; MEAN CORPUSCULAR HGB CONC 33.3 g/dl (32-36)
[2016-02-08 11:00] LABS: INR 0.9 (0.9-1.1); PROTHROMBIN TIME (PATIENT) 10.1 SECONDS (9.0-12.0)
[2016-02-08 11:11] LABS: ALB/GLOB RATIO 0.8 (0.9-2); CALCIUM 7.8 mg/dl (8.5-10.1); CREATININE 2.1 mg/dl (0.60-1.40); POTASSIUM 3.3 mmol/L (3.5-5.1)
--- NOTE | 2016-02-08 13:29 | Progress Note ---
Subjective Date of Service: Feb 08, 2016. Subjective Pt evaluation today including: conversation w/ patient, physical exam, lab review, review of studies, review of inpatient medication list Patient seen and evaluated. Reports new onset of upper abdominal pain. Imaging studies performed and Gen Surg consulted. Patient does reports pain is more manageable at this time and slight improvement overall. Still having loose stool but does report them to be a little more formed Problem List Medical Problems: (1) PNA (pneumonia) Status: Acute (2) Sepsis Status: Acute Review of Systems Constitutional: No chills, No fever Respiratory: No shortness of breath Cardiac: No chest pain Abdomen: + diarrhea, + pain, No nausea, No vomiting Musculoskeletal: No calf pain Male : No dysuria Endo: + fatigue All Other Systems: Reviewed and Negative Medications Current Inpatient Medications Medications (Trade) Dose Ordered Sig/Karen Route Start Time Stop Time Status Last Admin Dose Admin Acetaminophen (Tylenol Tab) 650 mg Q4H PRN PO 02/05/16 13:15 03/06/16 13:14 02/07/16 23:13 650 MG Al Hydrox/Mg Hydrox/Simethicone (Maalox Max Susp) 15 ml Q4H PRN PO 02/05/16 13:15 03/06/16 13:14 Magnesium Hydroxide (Milk Of Magnesia Susp) 30 ml Q12H PRN PO 02/05/16 13:15 03/06/16 13:14 Ondansetron HCl (Zofran Inj) 4 mg Q6H PRN IV 02/05/16 13:15 03/06/16 13:14 02/08/16 01:05 4 MG Nitroglycerin (Nitrostat Tab) 0.4 mg UD PRN SL 02/05/16 13:15 03/06/16 13:14 Polyethylene 17 gm 17 gm DAILY PRN PO 02/05/16 13:15 03/06/16 13:14 Piperacillin Sod/ Tazobactam Sod/ Dextrose (Zosyn Iv/D5 100ml) 115 ml @ 28.75 mls/ hr Q8H IV 02/05/16 18:00 02/15/16 17:59 02/08/16 10:50 28.75 MLS/HR Albuterol/ Ipratropium (Duoneb) 3 ml QIDR INH 02/05/16 16:00 03/06/16 15:59 02/08/16 11:12 3 ML Aspirin (Ecotrin Tab) 81 mg DAILY PO 02/06/16 09:00 03/07/16 08:59 02/08/16 07:52 81 MG Cholecalciferol (Vitamin D Tab) 1,000 inter.unit DAILY PO 02/06/16 09:00 03/07/16 08:59 02/08/16 07:52 1,000 INTER.UNIT Magnesium Oxide (Mag-Ox Tab) 400 mg DAILY PO 02/06/16 09:00 03/07/16 08:59 02/08/16 07:52 400 MG Multivitamins (Multivitamin Tab) 1 tab DAILY PO 02/06/16 09:00 03/07/16 08:59 02/08/16 07:52 1 TAB Primidone (Mysoline Tab) 50 mg DAILY PO 02/06/16 09:00 03/07/16 08:59 02/08/16 07:52 50 MG Pantoprazole Sodium (Protonix Tab) 40 mg QAM PO 02/06/16 09:00 03/07/16 08:59 02/08/16 07:52 40 MG Piperacillin Sod/ Tazobactam Sod (Consult) 1 ea UD PRN N/A 02/05/16 14:45 03/06/16 14:44 Oxycodone/ Acetaminophen (Percocet 5-325MG Tab) 1 tab Q6H PRN PO 02/06/16 14:15 02/20/16 14:14 Vancomycin HCl (Consult) 1 ea UD PRN N/A 02/07/16 09:45 03/08/16 09:44 Heparin Sodium (Porcine) (Heparin Sq 5000 Unit/0.5ml) 5,000 unit Q12 SQ 02/08/16 09:00 03/09/16 08:59 02/08/16 10:50 5,000 UNIT Morphine Sulfate (MoRPHine SULFATE INJ) 2 mg Q3H PRN IV 02/08/16 07:45 02/22/16 07:44 Morphine Sulfate 1 mg 1 mg Q3H PRN IV 02/08/16 07:45 02/22/16 07:44 Potassium Chloride/Sodium Chloride (Nss + 20meq KCl 1000ml) 1,000 ml @ 100 mls/hr Q10H IV 02/08/16 13:30 03/09/16 13:29 Objective Vital Signs Date Time Temp Pulse Resp B/P Pulse Ox O2 Delivery O2 Flow Rate FiO2 02/08/16 12:00 Room Air 02/08/16 11:12 82 18 95 Room Air 02/08/16 11:10 36.8 80 18 120/76 98 Room Air 02/08/16 08:00 Room Air 02/08/16 07:46 36.7 72 18 112/67 96 Room Air 02/08/16 07:31 69 18 96 Room Air 02/08/16 04:00 Room Air 02/08/16 03:22 36.5 80 20 113/73 97 Room Air 02/07/16 23:59 Room Air 02/07/16 23:41 36.7 75 20 129/86 96 Room Air 02/07/16 20:00 Room Air 02/07/16 19:47 36.7 85 19 146/75 96 Room Air 02/07/16 16:51 94 Room Air 02/07/16 16:13 36.9 93 18 104/73 94 Room Air 02/07/16 15:19 88 18 97 Room Air Physical Exam General Appearance: WD/WN, no apparent distress, + pertinent finding (ill appearing however slightly improved from previous exams) Eyes: sclerae normal ENT: hearing grossly normal Neck: supple, no JVD, trachea midline Respiratory/Chest: lungs clear, no respiratory distress, no accessory muscle use, + decreased breath sounds (bases bilat) Cardiovascular: regular rate, rhythm, no gallop, no murmur Abdomen: normal bowel sounds, + distended, + pertinent finding (Ileostomy in RLQ) Extremities: no pedal edema, no calf tenderness Neurologic/Psychiatric: alert, oriented x 3 Skin: normal color, warm/dry Laboratory Results Last 24 Hours Test 02/07/16 19:25 02/08/16 04:25 02/08/16 10:37 02/08/16 10:38 White Blood Count 4.84 K/uL 5.51 K/uL Red Blood Count 3.80 M/uL 4.33 M/uL Hemoglobin 11.4 g/dL 12.9 g/dL Hematocrit 34.0 % 38.7 % Mean Corpuscular Volume 89.5 fL 89.4 fL Mean Corpuscular Hemoglobin 30.0 pg 29.8 pg Mean Corpuscular Hemoglobin Concent 33.5 g/dl 33.3 g/dl Platelet Count 115 K/uL 141 K/uL Mean Platelet Volume 9.3 fL 9.6 fL Neutrophils (%) (Auto) 79.3 % 75.7 % Lymphocytes (%) (Auto) 7.9 % 9.6 % Monocytes (%) (Auto) 10.7 % 10.5 % Eosinophils (%) (Auto) 1.7 % 3.6 % Basophils (%) (Auto) 0.4 % 0.4 % Neutrophils # (Auto) 3.84 K/uL 4.17 K/uL Lymphocytes # (Auto) 0.38 K/uL 0.53 K/uL Monocytes # (Auto) 0.52 K/uL 0.58 K/uL Eosinophils # (Auto) 0.08 K/uL 0.20 K/uL Basophils # (Auto) 0.02 K/uL 0.02 K/uL RDW Standard Deviation 49.8 fL 49.1 fL RDW Coefficient of Variation 15.2 % 15.1 % Immature Granulocyte % (Auto) 0.0 % 0.2 % Immature Granulocyte # (Auto) 0.00 K/uL 0.01 K/uL Activated Partial Thromboplast Time 29.6 SECONDS Partial Thromboplastin Ratio 1.1 Sodium Level 142 mmol/L 139 mmol/L Potassium Level 4.0 mmol/L 3.3 mmol/L Chloride Level 109 mmol/L 107 mmol/L Carbon Dioxide Level 22 mmol/L 23 mmol/L Anion Gap 11.0 mmol/L 9.0 mmol/L Blood Urea Nitrogen 23 mg/dl 21 mg/dl Creatinine 2.00 mg/dl 2.10 mg/dl Est Creatinine Clear Calc Drug Dose 30.8 ml/min 31.9 ml/min Estimated GFR () 34.0 32.1 Estimated GFR (Non- 29.3 27.7 BUN/Creatinine Ratio 11.5 10.0 Random Glucose 112 mg/dl 84 mg/dl Calcium Level 7.1 mg/dl 7.8 mg/dl Magnesium Level 2.0 mg/dl Random Vancomycin Level 12.6 mcg/ml Prothrombin Time 10.1 SECONDS Prothromb Time International Ratio 0.9 Total Bilirubin 0.8 mg/dl Aspartate Amino Transf (AST/SGOT) 62 U/L Alanine Aminotransferase (ALT/SGPT) 43 U/L Alkaline Phosphatase 40 U/L Total Protein 6.7 gm/dl Albumin 3.0 gm/dl Globulin 3.7 gm/dl Albumin/Globulin Ratio 0.8 Lactic Acid Level 1.4 mmol/L Assessment and Plan Mr. Leung is a 85 y/o male with PMHx of Ulcerative Colitis S/P Partial Colectomy with Ileostomy (50 years ago), S/P Appendectomy, BPH S/P TURP, GERD, and MVP who presents to the ED complaining of nausea and vomiting that started last night and has remained consistent until approx 0900 this AM. Patient will be admitted to the telemetry floor for further evaluation and care. Nausea/Vomiting/Diarrhea: Gastroenteritis vs PNA vs Abdominal Etiology - Imaging -- CXR - mild cardiomegaly without evidence of lobar consolidation -- CT Abd/Pelvis without contrast - limited given no contrast - evidence of possible aspiration -- Echo - hyperdynamic; no regional wall motion; EF 65-70% -- C. Diff and Stool Cx - negative -- UA and Cx - uric acid -- BCx - staph species x 1 - Zosyn and Vanc with pharmacy dosing - Continue IVFs - Replete electrolyte abnormalities - Duonebs QID and Q2H PRN - Zofran 4 mg IV Q6H PRN - Pain - Morphine 1-2 mg PRN - KUB - in AM - Consult GI - appreciate recommendations - Consult ID - 1 BCx positive for Staph Abdominal Pain: - Pain has progressed from epigastric cramping on admission to LLQ "stabbing pain" to upper abdomen distention and diffuse pain - KUB - image and report reviewed - SBO vs Ileus - CT Abd/Pelvis with oral contrast - SBO; L lobe liver gas - portal venous gas; and stones/sludge in GB - Consult Gen Surg - appreciate further recommendations - possible necrotic bowel vs cholecystitis with SBO? Acute Kidney Injury: Baseline Unknown - Last Cr 1.10 (Sep 2015): - NSS 100 mL/hr - has received bolus in ED - Continue monitoring - serial BMPs Elevated Troponin: NSTEMI vs Demand Ischemia - EKG - reviewed - Sinus Tach without T wave inversions or obvious ischemic changes - Trops increased but trending down - Cardiology following - agree with recommendations - D/C Heparin gtt - 48 hour coverage will be complete Hypotension: - Patient reports his BP is normally "very low" and has received NSS boluses in ED - Will hold Propranolol ER and Lisinopril at this time - will reinstitute when baseline vitals established Mechanical Fall: Prior to Admission 2/2 Intractable Vomiting - XR Thoracic and Cervical - image and report reviewed - degenerative changes no acute fractures GERD: - Protonix 40 mg daily as interchange for Omeprazole DVT Prophylaxis: - Heparin 5000 units Q12H Code Status: - FULL RESUSCITATION Disposition - Resident maico Hanson - PT/OT evaluation
[2016-02-08] MEDS: NSS + 20MEQ KCL 1000ML 1,000 ML IV SCH ×2 (14:05→23:56)
--- NOTE | 2016-02-08 14:18 | Progress Note ---
Progress Note ID Consult Dictated #[id number] A/P: 1. + blood culture 2. Cholecystitis, suspicious for acute abd -Would continue abx for now,surgery consult pending -Repeat bc x 2, doubt micrococcus significant as source of infection but will continue abx for now -Concerned for intra-abd source, ?gb, ? ischemia, surgery eval pending -Discussed with primary -Thank you
--- NOTE | 2016-02-08 14:53 | Progress Note ---
Progress Note Received page from nurse that patient had increasing abdominal pain. Patient seen and examined at bedside. Patient reports having aching pain epigastric area radiating diffusely. VSS Gen- ill appearing Lungs- CTAB Cardio- S1S2, RRR Abd- positive BS, diffusely tender, no guarding, no rebound, no rigidity Ext- no c/c/e Neuro-AAOX3, no focal deficits 85 year old male with intractable abdominal pain secondary to SBO/cholecystitis - NG tube placed to low intermittent suction. Morphine and antiemetics prn. Appreciate surgery recommendations.
[2016-02-08] MEDS: MoRPHine SULFATE 2 MG/ML CARP IV PRN ×3 (15:15→18:27)
--- NOTE | 2016-02-08 15:19 | DIAGNOSTIC IMAGING REPORT ---
KUB CLINICAL HISTORY: NGT placement COMPARISON STUDY: 02/05/2016 FINDINGS: There is a nasogastric tube with its tip projected over the proximal stomach. There is mild gaseous prominence of left upper quadrant bowel loops. IMPRESSION: The recently placed nasogastric tube is positioned within the stomach. Electronically signed by: Hugh Winters M.D. 02/08/2016 3:18 PM
--- NOTE | 2016-02-08 18:10 | INFECT. DISEASE CONSULTATION ---
DATE OF CONSULTATION: 02/08/2016 REQUESTING PHYSICIAN: Dr. Rodriguez. HISTORY OF PRESENT ILLNESS: This is an 85-year-old gentleman who was admitted from assisted living after he had poor p.o. intake and nausea and vomiting that started 1 day prior to admission. He denies any reports of fevers or chills; however, on the he did have a T-max of 38.8. He has been afebrile since that time. He also complained of abdominal pain which was in the epigastric area. The patient does have a history of ulcerative colitis and does have partial colectomy with ileostomy. He did report looser stool coming from the ileostomy prior to admission. He also states that this is clear in nature. As part of his initial workup, blood cultures were obtained and were initially reported as the staph species. Upon further review, at the time of this dictation, this is finalized as a micrococcus species. This was a 1/2 sets. Repeat cultures were done. Stool studies were done and were negative for Salmonella, C. diff was negative. Urinalysis was performed and was negative and urine culture is negative as well. He has not had leukocytosis since admission to the hospital. He has had elevated LFTs, initially his AST was 50, ALT was 50; his AST has worsened and most recently today is 62, his ALT remains normal. He also has had elevated creatinine in the 1.9-2.3 range. He was started empirically on vancomycin and Zosyn and he remains on these antibiotics. He currently is afebrile. He has had an echocardiogram on the which did not show vegetation and he is seen by cardiology as well as gastroenterology. He was most recently seen by GI today. Review of imaging reveals an initial CAT scan of the abdomen and pelvis done at the time of admission. At that time, there was no bowel wall thickening or obstruction with questionable pneumonia noted. There were gallbladder stones with a sludge. A repeat CAT scan done today after he had acute worsening of abdominal pain, shows mildly distended gallbladder stones and sludge within the gallbladder, there is pericholecystic fluid. Of note, there is also air in the left lobe of the liver, questionable portal venous gas. There are bilateral effusions noted. Surgical consultation is pending. On my examination today, the patient complains of acute onset of worsening abdominal pain which is severe. His is at the bedside and also notes that this is an acute change from yesterday. He is not eating and does not have an appetite; however, he denies any nausea or vomiting. He describes the pain as sharp and diffuse. He is unable to localize to anyone area where the pain is worse. He also feels increasingly bloated and feels that he describes as pressure within the abdomen. He denies any chest pain, cough or shortness of breath. All remaining review of systems is reviewed and negative. PAST MEDICAL HISTORY: Significant for osteoarthritis, history of kidney stones, history of urinary tract infections, ulcerative colitis, GERD and mitral valve prolapse. PAST SURGICAL HISTORY: Significant with colectomy and ileostomy 50 years ago, appendectomy, TURP, hernia repairs and cataract surgery. FAMILY HISTORY: Noncontributory. SOCIAL HISTORY: Significant for history of tobacco use. He denies any alcohol or drug use. He is retired and lives with his . He denies any sick contacts. ALLERGIES: HE HAS ALLERGIES TO ADHESIVES. CURRENT MEDICATIONS: Include potassium, heparin, morphine, vancomycin, oxycodone, Ecotrin, vitamin D, magnesium, multivitamins, Mysoline, Protonix, Zosyn, DuoNebs, Maalox, Tylenol, milk of magnesia, Zofran, Nitrostat, and MiraLax. PHYSICAL EXAMINATION: VITAL SIGNS: He has been afebrile in the last 24 hours, pulse 82, respiratory rate 18, blood pressure 120/76, oxygen saturation is 95-98% on room air. GENERAL: He is awake, alert and oriented x3. He is in mild to moderate distress secondary to abdominal pain. HEENT: Mucous membranes are moist. HEART: Regular. LUNGS: Clear bilaterally. ABDOMEN: Distended coil and tympanitic. There is no rebound, rigidity or guarding. EXTREMITIES: There is no lower extremity edema. SKIN: Without rash. LABORATORY STUDIES: Chemistry panel today reveals a sodium of 139, potassium 3.3, chloride 107, bicarbonate 23, BUN 21, creatinine 2.1 and glucose is 84. AST is 62, ALT 43, total bilirubin is 0.8. CBC today reveals a white blood cell count of 5.5, hemoglobin 12.9, hematocrit 38.7, and platelets are 141. Urinalysis in the ER is negative. Random vancomycin level today is 12.6. Influenza swab was negative. Again, blood cultures from the are growing micrococcus species in 1/2 sets of stool cultures negative. C. diff is negative. Urine culture is negative. Stool leukocytes is normal, on the . IMAGING: As reviewed previously. ASSESSMENT AND PLAN: 1. Positive blood culture, likely skin contaminant. 2. Suspicious for acute abdomen, questionable cholecystitis. At this time, he will be continued on broad spectrum antibiotics. A surgical consultation has been requested. I do not suspect that the micrococcus is the source of infection and will be more concerned about the abdomen; however, repeat blood cultures will be obtained. Thank you for this consultation.
--- NOTE | 2016-02-08 23:01 | SURGICAL CONSULTATION ---
DATE OF CONSULTATION: 02/08/2016 REASON FOR CONSULTATION: Generalized abdominal pain with distention. I have been asked by Dr. Sayra Rodriguez to evaluate this patient regarding possible small-bowel obstruction. HISTORY OF PRESENT ILLNESS: This is an 85-year-old male who woke up at midnight 5 days ago with sudden onset of vomiting, no nausea, followed by dry heaves. He says that he threw up at least 20 times. This was bilious in nature. No hematemesis or coffee-ground emesis. After the extensive vomiting, he developed some soreness in his lower abdomen which he described as an aching sensation with an intensity of 8 out of 10. Twelve hours after the vomiting started, the patient developed a stabbing suprapubic pain followed by constant nausea and no vomiting. During the first 2 days, he also had high output out of his ileostomy which has significantly slowed down. Two days ago, the patient developed bloating with abdominal distention and his ileostomy temporarily stopped working. He states that he did change the appliance yesterday and he had some fluid in the bag, he states that the bag was full. He also feels that he may have aspirated some of the vomit 5 days ago. He slipped and fell on the floor and hurt his lower back. Today, an NG tube was placed and the patient did have some relief of his symptoms. He denies fever, chills or night sweats. The patient had a total colectomy performed 50 years ago for ulcerative colitis and he has had a functional ileostomy in his right lower quadrant ever since. PAST MEDICAL HISTORY: Renal calculus, benign prostatic hypertrophy, arthritis, history of urinary tract infection, ulcerative colitis, gastroesophageal reflux disease, mitral valve prolapse. PAST SURGICAL HISTORY: Transurethral resection of the prostate, right inguinal hernia repair with mesh, bilateral cataract surgery, total colon resection with permanent right lower quadrant ileostomy, multiple skin cancer removal using Mohs surgery. ALLERGIES: No known drug allergies. THE PATIENT DOES HAVE ADHESIVE TAPE ALLERGIES. MEDICATIONS: Potassium chloride, vancomycin, heparin, morphine, lorazepam, cholestyramine, oxycodone, aspirin, cholecalciferol, magnesium, primidone, Protonix, Zosyn, albuterol, Zofran, nitroglycerin, MiraLax. SOCIAL HISTORY: Ex-smoker, remote, over 60 years ago. No alcohol use. FAMILY HISTORY: Mother of pneumonia at a young age. Father of myocardial infarction. Three sisters of complications of diabetes. A brother alive and well. REVIEW OF SYSTEMS: GENERAL: The patient denies weakness or fatigue. SKIN: No rashes or itching. EYES: No visual change or ocular pain. EARS: He does have hearing loss though, left ear worse than right. BREASTS: No breast lump or nipple discharge. CARDIAC: No chest pain or palpitations. PULMONARY: No shortness of breath or productive cough. ABDOMEN: He did have nausea and vomiting and abdominal pain. GENITOURINARY: No penile discharge or frequent urination. NEUROLOGIC: No seizures or numbness. SKELETAL: He does have lower back pain because of the recent fall. No joint pain. ENDOCRINE: No polydipsia or polyuria. HEMATOPOIETIC: No anemia or bleeding diathesis. PHYSICAL EXAMINATION: VITAL SIGNS: Temperature 36.9, blood pressure 126/79, heart rate 90, respirations 18, O2 saturation 93% on room air. HEENT: Ears, nose, throat clear. Pupils equal and reactive. Sclerae muddy. Conjunctivae pink. Dry skin, poor skin turgor. Dry oral mucous membranes. Dentition intact. Midline tongue. NECK: Soft, supple. No cervical lymphadenopathy or bruits. Midline trachea. CHEST: Clear in the upper lung harman. No rales or rhonchi. Slightly decreased in the base. HEART: Regular rate and rhythm. No obvious murmur. ABDOMEN: Distended, soft, with tenderness in the periumbilical and right upper quadrant, worse in the right upper quadrant. No voluntary guarding or rebound. Bowel sounds are hypoactive, dull to percussion. Functioning ileostomy with moderate amount of fluid in the appliance, no air in the appliance. I have examined the abdomen multiple times during the day and the abdominal exam has improved slightly after the NG tube was placed. GENITOURINARY: Normal external genitalia. No inguinal masses. NEUROLOGICAL: Cranial nerves 3 through 12 intact. Peripheral motor and sensory symmetrical. EXTREMITIES: Normal range of motion of all 4 extremities. Soft and supple calves. No ankle edema. IMAGIN. CT scan of the abdomen and pelvis done 02/08/2016, small-bowel obstructive pattern. 2. Gas within the left lobe of the liver demonstrating a peripheral distribution portal venous gas. 3. Stones and sludge in the gallbladder. 4. Small amount of pericholecystic and perihepatic fluid. 5. Trace bilateral pleural effusions with bibasilar air space opacities, right greater than left. 6. Nonobstructing punctate right renal calculus. LABORATORY DATA: White count 5.5, hemoglobin 12.9, platelets 141, neutrophils 75%. Electrolytes normal except for a potassium of 3.3, creatinine is 2.1, calcium 7.8 with an albumin of 3.0, total bilirubin 0.8. Lactic acid level 1.4. IMPRESSION: 1. Small bowel obstruction 2. Enteritis. 3. Chronic cholecystitis with cholelithiasis. 4. Vomiting, dehydration improving. 5. Portal venous gas, doubt ischemic bowel. 6. S/P remote total colectomy with permanent ileostomy. PLAN: By history, it seems as if this patient may have started with either an enteritis and or a partial small-bowel obstruction. There is a possibility that the extensive and violent vomiting may have caused a small bowel obstruction via and internal hernia or adhesive bands however, the likelyhood of paralytic ileus causing all of his symptoms is possible. I have reviewed the CT scan with the radiologist and we are not convinced that the patient has evidence of ischemic bowel at this point in time. Also, the gallbladder has stones and sludge and maybe the source of his symptoms and ileus if it is acutely inflammed. The patient will have a biliary ultrasound done in the morning. Repeat the labs including lactate level and lipase. Schedule a Small-bowel follow through for the morning to evaluate whether this patient has a partial or complete small-bowel obstruction. Continue IV hydration and NG tube decompression. The patient may have ice chips with the functioning NGT. MTDD
[2016-02-09] VITALS (9 sets, daily range): BP systolic 116–145; BP diastolic 74–81; PULSE 83–88; TEMP 36.5–37; O2SAT 91–97
[2016-02-09] MEDS: PIPERACILL/TAZOBAC IV 3.375 GM in DEXTROSE 5% 100ML 100 ML IV SCH ×3 (01:50→18:09)
[2016-02-09 05:16] LABS: BASO % 0.4 %; BASO ABS # 0.02 K/uL (0-0.2); EOS % 3.5 %; HEMATOCRIT 34.4 % (42-52); IG% 0.2 %; LYMPH % 7.7 %; LYMPH ABS # 0.35 K/uL (1.2-3.4); MEAN CELL VOLUME 90.5 fL (80-100); MEAN PLATELET VOLUME 9.3 fL (7.4-10.4); MONO % 19.7 %; NEUT % 68.5 %; PLATELET COUNT 136 K/uL (130-400); WHITE BLOOD COUNT 4.52 K/uL (4.8-10.8)
[2016-02-09 05:39] LABS: BUN/CREATININE RATIO 10.1 (10-20); CALCIUM 7.8 mg/dl (8.5-10.1); CREATININE 1.8 mg/dl (0.60-1.40); MAGNESIUM 2.1 mg/dl (1.8-2.4); POTASSIUM 4.2 mmol/L (3.5-5.1)
[2016-02-09 05:47] LABS: COMPLETE YES; MEAN CORPUSCULAR HGB CONC 33.1 g/dl (32-36)
[2016-02-09 05:48] LABS: ALB/GLOB RATIO 0.8 (0.9-2)
[2016-02-09] MEDS: ALBUT/IPRATROP 3MG/0.5MG NEB 3 ML VIAL INH SCH ×2 (07:09→11:17)
[2016-02-09] MEDS: PRIMIDONE 50 MG TAB PO SCH (09:00)
[2016-02-09] MEDS: ASPIRIN 81 MG ECTAB PO SCH (09:00)
[2016-02-09] MEDS: MULTIVITAMIN TAB PO SCH (09:00)
[2016-02-09] MEDS: CHOLECALCIFEROL 1000 INTER.UNIT TAB PO SCH (09:00)
[2016-02-09] MEDS: HEPARIN SOD 5000 UNIT/0.5 ML CARP SQ SCH ×2 (09:26→21:02)
[2016-02-09] MEDS: NSS + 20MEQ KCL 1000ML 1,000 ML IV SCH ×2 (09:29→19:30)
[2016-02-09] MEDS ORDERED: VANCOMYCIN INJ 1,500 MG in SODIUM CHLORIDE 0.9% 500ML 500 ML IV ONE (10:00)
--- NOTE | 2016-02-09 10:00 | DIAGNOSTIC IMAGING REPORT ---
KUB CLINICAL HISTORY: Follow-up Ileus vs SBO obstruction COMPARISON STUDY: 02/08/2016 FINDINGS: Nasogastric tube within the proximal stomach. Several air-filled loops of small bowel. Air remains within the colon. IMPRESSION: Persistent ileus. Electronically signed by: Melvin Cota M.D. 02/09/2016 9:58 AM
--- NOTE | 2016-02-09 10:13 | DIAGNOSTIC IMAGING REPORT ---
Right upper quadrant ultrasound GALLBLADDER-ABD LIMITED CLINICAL HISTORY: acute cholecystitis pain. Nausea. TECHNIQUE: Ultrasound COMPARISON STUDY: CT dated 02/08/2016 FINDINGS: Limited study due to overlying bowel content. Visualized components of liver unremarkable. Left hepatic lobe is not well seen. Gallbladder contains a combination of sludge and gallstones. Common bile that measures 5 mm. Intrahepatic ducts are normal. Right kidney is negative for hydronephrosis. IMPRESSION: Limited evaluation due to overlying bowel content. Combination of sludge and gallstones within the gallbladder lumen. Normal caliber bile duct. Electronically signed by: Melvin Cota M.D. 02/09/2016 10:12 AM
[2016-02-09] MEDS: MoRPHine SULFATE 2 MG/ML CARP IV PRN ×2 (10:36→18:10)
[2016-02-09] MEDS: ONDANSETRON INJ 2 MG/ML 2 ML VIAL IV PRN ×2 (10:36→18:10)
[2016-02-09] MEDS: MAGNESIUM OXIDE 400 MG TAB PO SCH (11:38)
[2016-02-09] MEDS: PANTOprazole SOD 40 MG TAB PO SCH (11:38)
--- NOTE | 2016-02-09 11:46 | Pharmacy Progress Note ---
Pharmacy Antibiotic Prog Note Date of Service: Feb 09, 2016. Subjective: The patient is currently receiving Vancomycin 1500 mg IV ONE TIME doses based on level. The patient is currently on day # 5/10 of Vancomycin IV therapy. ID has been consulted. Objective: Height (Feet): 6 Height (Inches): 2.00 Weight (Kilograms): 99.400 Levels: Item Value Date Time Random Vancomycin Level 15.9 mcg/ml 02/09/16 0504 Lab Results (24hrs): Laboratory Tests Test 02/09/16 05:04 BUN/Creatinine Ratio 10.1 Blood Urea Nitrogen 18 mg/dl Creatinine 1.80 mg/dl White Blood Count 4.52 K/uL Red Blood Count 3.80 M/uL Hemoglobin 11.4 g/dL Hematocrit 34.4 % Mean Corpuscular Volume 90.5 fL Mean Corpuscular Hemoglobin 30.0 pg Mean Corpuscular Hemoglobin Concent 33.1 g/dl Platelet Count 136 K/uL Mean Platelet Volume 9.3 fL Neutrophils (%) (Auto) 68.5 % Lymphocytes (%) (Auto) 7.7 % Monocytes (%) (Auto) 19.7 % Eosinophils (%) (Auto) 3.5 % Basophils (%) (Auto) 0.4 % Neutrophils # (Auto) 3.09 K/uL Lymphocytes # (Auto) 0.35 K/uL Monocytes # (Auto) 0.89 K/uL Eosinophils # (Auto) 0.16 K/uL Basophils # (Auto) 0.02 K/uL Micro Results: 02/07: New blood cultures pending x 2. Recent Pertinent Medications: Also on Zosyn 3.375 gm IV q8h extended infusion over 4 hrs. Assessment & Plan: * Random Vancomycin level from this AM = 15.9. * Ordered for Vancomycin 1500 mg IV x 1 (15 mg/kg) dose to be given at 1000 am today, * Serum creat improved slightly at 1.8 today. Crcl = 37.2. * Will check a random Vancomycin level, ordered for 02/09 with am labs. * Will re-dose if level falls to around 15 mcg/ml. Pharmacy will continue to follow and will adjust dose/frequency as necessary. Thank you
--- NOTE | 2016-02-09 12:06 | Progress Note ---
Subjective Date of Service: Feb 09, 2016. Subjective Pt evaluation today including: conversation w/ patient, conversation w/ family , physical exam, chart review, lab review, review of studies, review of inpatient medication list Pt reports worsening lower quad pain Persistent nausea at bedside Underwent US and KUB this AM Problem List Medical Problems: (1) PNA (pneumonia) Status: Acute (2) Sepsis Status: Acute Review of Systems Constitutional: No chills, No fever Respiratory: No cough, No dyspnea on exertion, No shortness of breath, No sputum, No wheezing Cardiac: No chest pain, No orthopnea Abdomen: + nausea, + pain, No diarrhea, No vomiting Musculoskeletal: No joint pain, No muscle pain Male : No dysuria, No urinary frequency Neurologic: No memory loss, No paralysis Objective Vital Signs Date Time Temp Pulse Resp B/P Pulse Ox O2 Delivery O2 Flow Rate FiO2 02/09/16 11:53 36.5 87 20 116/74 94 Room Air 02/09/16 11:17 88 16 95 Room Air 02/09/16 08:08 36.8 86 20 132/76 95 Room Air 02/09/16 07:09 86 16 93 Room Air 02/09/16 04:00 Room Air 02/09/16 03:23 36.8 87 20 126/79 94 Room Air 02/08/16 23:59 Room Air 02/08/16 23:25 36.9 90 20 127/79 94 Room Air 02/08/16 20:00 Room Air 02/08/16 19:20 36.9 90 18 126/79 93 Room Air 02/08/16 19:17 80 18 96 Room Air 02/08/16 16:00 Room Air 02/08/16 15:59 36.6 93 20 124/71 94 Room Air 02/08/16 15:15 79 18 97 Room Air Physical Exam General Appearance: WD/WN, + mild distress Neck: supple, no adenopathy Respiratory/Chest: chest non-tender, lungs clear, normal breath sounds Cardiovascular: no edema, no gallop Abdomen: + distended, + tenderness Neurologic/Psychiatric: alert, oriented x 3 Laboratory Results Last 24 Hours Test 02/09/16 05:04 White Blood Count 4.52 K/uL Red Blood Count 3.80 M/uL Hemoglobin 11.4 g/dL Hematocrit 34.4 % Mean Corpuscular Volume 90.5 fL Mean Corpuscular Hemoglobin 30.0 pg Mean Corpuscular Hemoglobin Concent 33.1 g/dl Platelet Count 136 K/uL Mean Platelet Volume 9.3 fL Neutrophils (%) (Auto) 68.5 % Lymphocytes (%) (Auto) 7.7 % Monocytes (%) (Auto) 19.7 % Eosinophils (%) (Auto) 3.5 % Basophils (%) (Auto) 0.4 % Neutrophils # (Auto) 3.09 K/uL Lymphocytes # (Auto) 0.35 K/uL Monocytes # (Auto) 0.89 K/uL Eosinophils # (Auto) 0.16 K/uL Basophils # (Auto) 0.02 K/uL RDW Standard Deviation 50.1 fL RDW Coefficient of Variation 15.1 % Immature Granulocyte % (Auto) 0.2 % Immature Granulocyte # (Auto) 0.01 K/uL Activated Partial Thromboplast Time 26.6 SECONDS Partial Thromboplastin Ratio 1.0 Sodium Level 143 mmol/L Potassium Level 4.2 mmol/L Chloride Level 110 mmol/L Carbon Dioxide Level 25 mmol/L Anion Gap 8.0 mmol/L Blood Urea Nitrogen 18 mg/dl Creatinine 1.80 mg/dl Est Creatinine Clear Calc Drug Dose 37.2 ml/min Estimated GFR () 38.6 Estimated GFR (Non- 33.3 BUN/Creatinine Ratio 10.1 Random Glucose 105 mg/dl Lactic Acid Level 1.0 mmol/L Calcium Level 7.8 mg/dl Magnesium Level 2.1 mg/dl Total Bilirubin 1.1 mg/dl Aspartate Amino Transf (AST/SGOT) 49 U/L Alanine Aminotransferase (ALT/SGPT) 37 U/L Alkaline Phosphatase 35 U/L Total Protein 5.6 gm/dl Albumin 2.4 gm/dl Globulin 3.2 gm/dl Albumin/Globulin Ratio 0.8 Lipase 137 U/L Random Vancomycin Level 15.9 mcg/ml Assessment and Plan Mr. Leung is a 85 y/o male with PMHx of Ulcerative Colitis S/P Partial Colectomy with Ileostomy (50 years ago), S/P Appendectomy, BPH S/P TURP, GERD, and MVP who presents to the ED complaining of nausea and vomiting. Patient will be admitted to the telemetry floor for further evaluation and care. Nausea/Vomiting/Diarrhea: Gastroenteritis vs PNA vs Abdominal Etiology - Imaging -- CXR - mild cardiomegaly without evidence of lobar consolidation -- CT Abd/Pelvis without contrast - limited given no contrast - evidence of possible aspiration -- Echo - hyperdynamic; no regional wall motion; EF 65-70% -- C. Diff and Stool Cx - negative -- UA and Cx - uric acid -- BCx - staph species x 1, with repeat BC pending per ID recs - Zosyn and Vanc with pharmacy dosing - Continue IVFs - Replete electrolyte abnormalities - Duonebs QID and Q2H PRN - Zofran 4 mg IV Q6H PRN - Pain - Morphine 1-2 mg PRN - KUB and gallbladder US 02/08 - Consult GI - appreciate recommendations Abdominal Pain: - Pain has progressed from epigastric cramping on admission to LLQ "stabbing pain" to upper abdomen distention and diffuse pain - KUB - image and report reviewed - SBO vs Ileus - CT Abd/Pelvis with oral contrast - SBO; L lobe liver gas - portal venous gas; and stones/sludge in GB - Consult Gen Surg - appreciate further recommendations - possible necrotic bowel vs cholecystitis with SBO? Acute Kidney Injury: Baseline Unknown - Last Cr 1.10 (Sep 2015): - NSS 100 mL/hr - has received bolus in ED - Continue monitoring - serial BMPs Elevated Troponin: NSTEMI vs Demand Ischemia - EKG - reviewed - Sinus Tach without T wave inversions or obvious ischemic changes - Trops increased but trending down - Cardiology following - agree with recommendations - D/C Heparin gtt - 48 hour coverage will be complete Hypotension: - Patient reports his BP is normally "very low" and has received NSS boluses in ED - Will hold Propranolol ER and Lisinopril at this time - will reinstitute when baseline vitals established Mechanical Fall: Prior to Admission 2/2 Intractable Vomiting - XR Thoracic and Cervical - image and report reviewed - degenerative changes no acute fractures GERD: - Protonix 40 mg daily as interchange for Omeprazole DVT Prophylaxis: - Heparin 5000 units Q12H Code Status: - FULL RESUSCITATION
--- NOTE | 2016-02-09 13:15 | SURGERY PROGRESS NOTE ---
DATE: 02/09/2016 SUBJECTIVE: I have evaluated the patient at the bedside in the presence of a nurse and his . He is resting comfortably in bed. He says that his abdominal pain has abated somewhat, but since he went for his abdominal x-ray and ultrasound he feels worse just due to the movement. He denies fevers, chills. The NG tube is bothering him, but has improved his abdominal symptoms. He denies nausea or vomiting. The ileostomy output has decreased to 100 mL on the last shift. PHYSICAL EXAMINATION: VITAL SIGNS: Temperature 36.5, blood pressure 116/74, heart rate 87, respirations 20, O2 saturation 94% on room air. HEENT: Nonicteric sclerae. CHEST: Clear. No rales or rhonchi. HEART: Regular rate and rhythm. No murmur. ABDOMEN: Distended with tenderness primarily in the left lower quadrant and right upper quadrant, nonrigid, some mild guarding, no rebound tenderness. Ileostomy appliance in the right lower quadrant with small amount of fluid in the bag. Bowel sounds are hypoactive and almost nonexistent. Dull and tympanitic to percussion. EXTREMITIES: Soft, supple calves, no tenderness. LABORATORY DATA: White count 4.5, hemoglobin 11.4, platelets 136, polys 68%. Electrolytes normal with chloride slightly elevated at 110, creatinine is decreasing at 1.8 today. Glucose 105, bilirubin 1.1, albumin 2.4. Lipase 137. Lactic acid 1.0, normal. IMPRESSION: 1. Suspect small-bowel obstruction. 2. Chronic cholelithiasis with sludge in the gallbladder. No ultrasound evidence of acute cholecystitis. 3. Protein calorie malnutrition. 4. Mild dehydration with prerenal azotemia, improving. PLAN: The patient will obtain a Gastrografin small-bowel follow-through series today. If he does have the small-bowel obstruction he will need to have an exploratory laparotomy, and enterolysis. The likelihood of ischemic bowel is present, but less likely due to the fact that the lactate level is normal and going down and pneumocystosis of the small bowel wall was not identified on the last CAT scan. MTDD
--- NOTE | 2016-02-09 15:02 | Gastroenterology Progress Note ---
Progress Note Date of Service: Feb 09, 2016 Subjective Pt evaluation today including: conversation w/ patient, conversation w/ family (daughter present for H and P), physical exam, chart review, lab review, review of studies, review of inpatient medication list CC f/u SBO HPI Pt had GB u/s limited study but sludge and stones in GB seen, KUB showing persistent ileus. Pt undergoing SBFT per surgeon. Pt with some increased abd pain post moving around for u/s and xrays today. No N/V Review of Systems Respiratory: No shortness of breath Cardiac: No chest pain Medications Current Inpatient Medications Medications (Trade) Dose Ordered Sig/Karen Route Start Time Stop Time Status Last Admin Dose Admin Acetaminophen (Tylenol Tab) 650 mg Q4H PRN PO 02/05/16 13:15 03/06/16 13:14 02/07/16 23:13 650 MG Al Hydrox/Mg Hydrox/Simethicone (Maalox Max Susp) 15 ml Q4H PRN PO 02/05/16 13:15 03/06/16 13:14 Magnesium Hydroxide (Milk Of Magnesia Susp) 30 ml Q12H PRN PO 02/05/16 13:15 03/06/16 13:14 Ondansetron HCl (Zofran Inj) 4 mg Q6H PRN IV 02/05/16 13:15 03/06/16 13:14 02/09/16 10:36 4 MG Nitroglycerin (Nitrostat Tab) 0.4 mg UD PRN SL 02/05/16 13:15 03/06/16 13:14 Polyethylene 17 gm 17 gm DAILY PRN PO 02/05/16 13:15 03/06/16 13:14 Piperacillin Sod/ Tazobactam Sod/ Dextrose (Zosyn Iv/D5 100ml) 115 ml @ 28.75 mls/ hr Q8H IV 02/05/16 18:00 02/15/16 17:59 02/09/16 09:27 28.75 MLS/HR Albuterol/ Ipratropium (Duoneb) 3 ml QIDR INH 02/05/16 16:00 03/06/16 15:59 02/09/16 11:17 3 ML Aspirin (Ecotrin Tab) 81 mg DAILY PO 02/06/16 09:00 03/07/16 08:59 02/08/16 07:52 81 MG Cholecalciferol (Vitamin D Tab) 1,000 inter.unit DAILY PO 02/06/16 09:00 03/07/16 08:59 02/08/16 07:52 1,000 INTER.UNIT Magnesium Oxide (Mag-Ox Tab) 400 mg DAILY PO 02/06/16 09:00 03/07/16 08:59 02/08/16 07:52 400 MG Multivitamins (Multivitamin Tab) 1 tab DAILY PO 02/06/16 09:00 03/07/16 08:59 02/08/16 07:52 1 TAB Primidone (Mysoline Tab) 50 mg DAILY PO 02/06/16 09:00 03/07/16 08:59 02/08/16 07:52 50 MG Pantoprazole Sodium (Protonix Tab) 40 mg QAM PO 02/06/16 09:00 03/07/16 08:59 02/08/16 07:52 40 MG Piperacillin Sod/ Tazobactam Sod (Consult) 1 ea UD PRN N/A 02/05/16 14:45 03/06/16 14:44 Oxycodone/ Acetaminophen (Percocet 5-325MG Tab) 1 tab Q6H PRN PO 02/06/16 14:15 02/20/16 14:14 Vancomycin HCl (Consult) 1 ea UD PRN N/A 02/07/16 09:45 03/08/16 09:44 Heparin Sodium (Porcine) (Heparin Sq 5000 Unit/0.5ml) 5,000 unit Q12 SQ 02/08/16 09:00 03/09/16 08:59 02/09/16 09:26 5,000 UNIT Morphine Sulfate (MoRPHine SULFATE INJ) 2 mg Q3H PRN IV 02/08/16 07:45 02/22/16 07:44 02/09/16 10:36 2 MG Morphine Sulfate 1 mg 1 mg Q3H PRN IV 02/08/16 07:45 02/22/16 07:44 02/08/16 18:27 1 MG Potassium Chloride/Sodium Chloride (Nss + 20meq KCl 1000ml) 1,000 ml @ 100 mls/hr Q10H IV 02/08/16 13:30 03/09/16 13:29 02/09/16 09:29 100 MLS/HR Objective Vital Signs Date Time Temp Pulse Resp B/P Pulse Ox O2 Delivery O2 Flow Rate FiO2 02/09/16 12:00 Room Air 02/09/16 11:53 36.5 87 20 116/74 94 Room Air 02/09/16 11:17 88 16 95 Room Air 02/09/16 08:08 36.8 86 20 132/76 95 Room Air 02/09/16 08:00 Room Air 02/09/16 07:09 86 16 93 Room Air 02/09/16 04:00 Room Air 02/09/16 03:23 36.8 87 20 126/79 94 Room Air 02/08/16 23:59 Room Air 02/08/16 23:25 36.9 90 20 127/79 94 Room Air 02/08/16 20:00 Room Air 02/08/16 19:20 36.9 90 18 126/79 93 Room Air 02/08/16 19:17 80 18 96 Room Air 02/08/16 16:00 Room Air 02/08/16 15:59 36.6 93 20 124/71 94 Room Air 02/08/16 15:15 79 18 97 Room Air Physical Exam General Appearance: WD/WN, no apparent distress Respiratory/Chest: normal breath sounds, no respiratory distress Cardiovascular: regular rate, rhythm Abdomen: + pertinent finding (positive bowel sounds, no guarding nor rebound, subjective LLQ pain, midly distended) Laboratory Results Last 24 Hours Test 02/09/16 05:04 White Blood Count 4.52 K/uL Red Blood Count 3.80 M/uL Hemoglobin 11.4 g/dL Hematocrit 34.4 % Mean Corpuscular Volume 90.5 fL Mean Corpuscular Hemoglobin 30.0 pg Mean Corpuscular Hemoglobin Concent 33.1 g/dl Platelet Count 136 K/uL Mean Platelet Volume 9.3 fL Neutrophils (%) (Auto) 68.5 % Lymphocytes (%) (Auto) 7.7 % Monocytes (%) (Auto) 19.7 % Eosinophils (%) (Auto) 3.5 % Basophils (%) (Auto) 0.4 % Neutrophils # (Auto) 3.09 K/uL Lymphocytes # (Auto) 0.35 K/uL Monocytes # (Auto) 0.89 K/uL Eosinophils # (Auto) 0.16 K/uL Basophils # (Auto) 0.02 K/uL RDW Standard Deviation 50.1 fL RDW Coefficient of Variation 15.1 % Immature Granulocyte % (Auto) 0.2 % Immature Granulocyte # (Auto) 0.01 K/uL Activated Partial Thromboplast Time 26.6 SECONDS Partial Thromboplastin Ratio 1.0 Sodium Level 143 mmol/L Potassium Level 4.2 mmol/L Chloride Level 110 mmol/L Carbon Dioxide Level 25 mmol/L Anion Gap 8.0 mmol/L Blood Urea Nitrogen 18 mg/dl Creatinine 1.80 mg/dl Est Creatinine Clear Calc Drug Dose 37.2 ml/min Estimated GFR () 38.6 Estimated GFR (Non- 33.3 BUN/Creatinine Ratio 10.1 Random Glucose 105 mg/dl Lactic Acid Level 1.0 mmol/L Calcium Level 7.8 mg/dl Magnesium Level 2.1 mg/dl Total Bilirubin 1.1 mg/dl Aspartate Amino Transf (AST/SGOT) 49 U/L Alanine Aminotransferase (ALT/SGPT) 37 U/L Alkaline Phosphatase 35 U/L Total Protein 5.6 gm/dl Albumin 2.4 gm/dl Globulin 3.2 gm/dl Albumin/Globulin Ratio 0.8 Lipase 137 U/L Random Vancomycin Level 15.9 mcg/ml Assessment and Plan SBO with portal venous gas-- WBC and lactic acid normal. Further care per surgeon--per his note today may do surgery if contrast does not go through bowel Abdominal pain--ongoing somewhat worse post movement N/V--improved Diarrhea----stool WBCs negative--Giardia, Cryptsporidia, and O and P pending; could be related to process causing SBO above. Elevated LFTS--mixed up and down, follow for now
[2016-02-09] MEDS ORDERED: ALBUT/IPRATROP 3MG/0.5MG NEB 3 ML VIAL INH PRN (16:15)
[2016-02-09] MEDS: IPRATROPIUM BROMIDE/ALBUTEROL respimat INH INH SCH (20:58)
--- NOTE | 2016-02-09 21:26 | Anesthesiology Progress Note ---
Anesthesia Progress Note Date of Service Feb 09, 2016. Progress Notes The patient is an 85 y/o male with a h/o mitral valve prolapse, GERD, ulcerative colitis s/o colectomy who was admitted with nausea, vomiting and abdominal pain four days ago, On admission he was hypotensive and hypovolemic which resulted in a troponin leak from demand ischemia. He was also felt to have a possible aspiration pneumonia on admission. He has now appeared to have developed a bowel obstruction and is scheduled for exploratory laparotomy tomorrow. The patient had an echo which showed preserved LV function with an EF of 65-70%. His CXR on 02/07/16 showed bibasilar pleural change/atelectasis. He had acute renal failure on admission, but his creatinine is now improved to 1.8. The patient is now resting comfortably in bed with an NG tube in place. He denies any shortness of breath and is saturating 91-97% on RA. His lungs sounded clear to auscultation. His heart was RRR. He has a Mallampati III airway. I consented the patient for General anesthesia and invasive monitoring. All questions were answered. I discussed the patient with Dr. Traore who will be providing anesthesia for the patient tomorrow.
--- NOTE | 2016-02-09 22:36 | SURGERY PROGRESS NOTE ---
DATE: 02/09/2016 ADDENDUM PROVIDER: Dr. Auguste, general surgery. This patient has undergone a small bowel follow through KUBs. After 5 hours the Gastrografin did not progress beyond the proximal to mid jejunum, consistent with a mechanical bowel obstruction. He should undergo an exploratory laparotomy, enterolysis. Due to the fact that patient has normal and stable vital signs, he has been afebrile, he has good I's and O's with excellent urine output, he is not acidemic, has no white count elevation or left shift; as a result he does not need an emergent procedure, can wait until the morning for his surgery. I have discussed this with patient, his is presently not in the room. We will obtain a baseline chest x-ray in the morning to monitor his aspiration pneumonia after surgery. ELSIE
--- NOTE | 2016-02-09 22:48 | DIAGNOSTIC IMAGING REPORT ---
GASTROGRAFIN SMALL BOWEL FOLLOW-THROUGH CLINICAL HISTORY: Small bowel obstruction. COMPARISON STUDY: CT of the abdomen and pelvis February 08, 2016 and KUB performed earlier today. TECHNIQUE: 60 cc of Gastroview was diluted in 140 cc of water. This mixture was then injected through the patient's nasogastric tube. Serial KUBs were then obtained. FINDINGS: Initial image demonstrates tip of nasogastric tube within the distal body of the stomach. There is contrast within the stomach and the proximal small bowel. Subsequent images demonstrate passage of contrast into the left mid abdomen, likely within the proximal ileum. The patient is status post colectomy. This study was started at 1:00 PM. At 5:00 PM, no contrast within the distal ileum or ileostomy was noted. The findings suggest a persistent small bowel obstruction. No further imaging was requested. IMPRESSION: Findings suggestive of a persistent small bowel obstruction, as described above. Moderate dilatation of the proximal to mid small bowel. After 4 hours, contrast did not reach the distal ileum or ileostomy bag. Electronically signed by: Eric Joaquin M.D. 02/09/2016 10:46 PM
[2016-02-10] VITALS (15 sets, daily range): BP systolic 109–155; BP diastolic 75–94; PULSE 82–109; TEMP 36.5–36.9; O2SAT 92–99
[2016-02-10] MEDS: PIPERACILL/TAZOBAC IV 3.375 GM in DEXTROSE 5% 100ML 100 ML IV SCH ×4 (01:49→17:01)
[2016-02-10 05:00] LABS: BASO % 0.4 %; BASO ABS # 0.02 K/uL (0-0.2); EOS % 4.7 %; HEMATOCRIT 34.1 % (42-52); IG% 0.4 %; LYMPH % 9.2 %; LYMPH ABS # 0.51 K/uL (1.2-3.4); MEAN CELL VOLUME 90.9 fL (80-100); MEAN CORPUSCULAR HEMOGLOBIN 29.9 pg (25-34); MEAN PLATELET VOLUME 9.3 fL (7.4-10.4); NEUT % 69.3 %; PLATELET COUNT 149 K/uL (130-400); RED BLOOD COUNT 3.75 M/uL (4.7-6.1); WHITE BLOOD COUNT 5.55 K/uL (4.8-10.8)
[2016-02-10 05:03] LABS: COMPLETE YES; MEAN CORPUSCULAR HGB CONC 32.8 g/dl (32-36)
[2016-02-10 05:12] LABS: PARTIAL THROMBOPLASTIN RATIO 1.1
[2016-02-10] MEDS: NSS + 20MEQ KCL 1000ML 1,000 ML IV SCH ×2 (05:30→16:12)
[2016-02-10 05:34] LABS: ALB/GLOB RATIO 0.7 (0.9-2); BUN/CREATININE RATIO 13.2 (10-20); CALCIUM 8.1 mg/dl (8.5-10.1); CREATININE 1.6 mg/dl (0.60-1.40); MAGNESIUM 2.2 mg/dl (1.8-2.4); POTASSIUM 3.8 mmol/L (3.5-5.1)
[2016-02-10] MEDS: MULTIVITAMIN TAB PO SCH (07:55)
[2016-02-10] MEDS: MAGNESIUM OXIDE 400 MG TAB PO SCH (07:55)
[2016-02-10] MEDS: ASPIRIN 81 MG ECTAB PO SCH (07:55)
[2016-02-10] MEDS: PANTOprazole SOD 40 MG TAB PO SCH (07:56)
[2016-02-10] MEDS: CHOLECALCIFEROL 1000 INTER.UNIT TAB PO SCH (07:56)
[2016-02-10] MEDS: PRIMIDONE 50 MG TAB PO SCH (07:56)
[2016-02-10] MEDS: HEPARIN SOD 5000 UNIT/0.5 ML CARP SQ SCH ×2 (07:56→21:54)
[2016-02-10] MEDS ORDERED: MIDAZOLAM HCL 1 MG/ML 2ML VIAL ONE (08:52)
[2016-02-10] MEDS ORDERED: FENTANYL CITRATE INJ 50 MCG/1 ML 2 ML VIAL ONE ×2 (08:53→10:54)
[2016-02-10] MEDS: IPRATROPIUM BROMIDE/ALBUTEROL respimat INH INH SCH ×4 (09:00→21:53)
--- NOTE | 2016-02-10 09:24 | History & Physical Bridge Note ---
H&P Re-Evaluation Bridge Note: I have examined the patient, reviewed the History & Physical and in the interval since the performance of the History & Physical I have noted the following changes of clinical significance: No changes noted
[2016-02-10] MEDS ORDERED: HYDROmorphone HCL 2 MG/ML **ORM CHARTING ONLY ONE ×2 (09:31→09:32)
[2016-02-10] MEDS ORDERED: ATROPINE SULFATE 0.1 MG/ML 5ML SYR IV ONE ×2 (09:31→09:32)
[2016-02-10] MEDS ORDERED: FENTANYL CITRATE INJ 50 MCG**ORM CHARTING ONLY ONE ×2 (09:31→09:32)
[2016-02-10] MEDS ORDERED: EpHEDrine SULFATE INJ 50 MG/ML **ORM CHARTING ONLY ONE ×2 (09:31→09:32)
[2016-02-10] MEDS ORDERED: MIDAZOLAM HCL 1 MG/ML 2ML**ORM CHARTING ONLY ONE ×2 (09:31→09:32)
[2016-02-10] MEDS ORDERED: METOCLOPRAMIDE HCL INJ **ORM CHARTING ONLY ONE ×2 (09:31→09:32)
[2016-02-10] MEDS ORDERED: KETOROLAC 30 MG/ML **ORM CHARTING ONLY ONE ×2 (09:31→09:32)
[2016-02-10] MEDS ORDERED: DROPERIDOL 2.5 MG/ML 2**ORM CHARTING ONLY ONE ×2 (09:31→09:32)
[2016-02-10] MEDS ORDERED: MoRPHine SULFATE 10 MG/ML **ORM CHARTING ONLY ONE ×2 (09:31→09:32)
[2016-02-10] MEDS ORDERED: HydrALAZINE HCL **ORM CHARTING ONLY ONE ×2 (09:31→09:32)
[2016-02-10] MEDS ORDERED: LABETALOL HCL IV **ORM CHARTING ONLY IV ONE ×2 (09:31→09:32)
[2016-02-10] MEDS ORDERED: MEPERIDINE HCL 50 MG/ML CARP**ORM CHARTING ONLY ONE ×2 (09:31→09:32)
[2016-02-10] MEDS ORDERED: LIDOCAINE 2% 20 MG/ML SYRINGE***ORM CHARTING ONLY IV ONE ×2 (09:31→09:32)
[2016-02-10] MEDS ORDERED: ONDANSETRON INJ 2 MG/ML **ORM CHARTING ONLY ONE (09:32)
[2016-02-10] MEDS ORDERED: SODIUM CHLORIDE 0.9% 10ML **ORM CHARTING ONLY ONE (09:32)
[2016-02-10] MEDS ORDERED: NALOXONE HCL 0.4 MG/1 ML **ORM CHARTING ONLY ONE (09:32)
[2016-02-10] MEDS ORDERED: VANCOMYCIN INJ 1,500 MG in SODIUM CHLORIDE 0.9% 500ML 500 ML IV ONE (10:00)
--- NOTE | 2016-02-10 10:22 | DIAGNOSTIC IMAGING REPORT ---
CHEST 2 VIEWS ROUTINE HISTORY: Cough. Congestion. aspiration pneumonia COMPARISON: Chest 02/07/2016. FINDINGS: Nasogastric tube terminates in the proximal stomach. Mild elevation the right hemidiaphragm. Trace right pleural effusion. Bibasilar linear densities. No pneumothorax. The heart remains mildly enlarged. There is likely a trace left pleural effusion. IMPRESSION: 1. Trace bilateral pleural effusions and bibasilar densities persist. This may represent atelectasis or pneumonia. 2. Nasogastric tube terminates in the proximal stomach. Electronically signed by: Jonel Smith M.D. 02/10/2016 10:21 AM
[2016-02-10] MEDS ORDERED: MoRPHine SULFATE PF 1 MG/ML 10 ML AMP/VIAL ONE ×2 (12:24→12:58)
[2016-02-10] MEDS ORDERED: EPINEPHRINE INJ ONE (12:25)
[2016-02-10] MEDS ORDERED: BUPIVACAINE 0.25% INJ ONE (12:25)
[2016-02-10] MEDS ORDERED: EpHEDrine SULFATE INJ 50 MG/ML AMP IV PRN (12:45)
[2016-02-10] MEDS ORDERED: MoRPHine SULFATE 10 MG/ML CARP/VIAL IV PRN (12:45)
[2016-02-10] MEDS ORDERED: ATROPINE SULFATE 0.1 MG/ML 5ML SYR IV PRN (12:45)
[2016-02-10] MEDS ORDERED: ONDANSETRON INJ 2 MG/ML 2 ML VIAL IV PRN (12:45)
[2016-02-10] MEDS ORDERED: FENTANYL CITRATE INJ 50 MCG/1 ML 2 ML VIAL IV PRN (12:45)
--- NOTE | 2016-02-10 13:24 | Progress Note ---
Subjective Date of Service: Feb 10, 2016. Subjective Pt evaluation today including: conversation w/ patient, physical exam, chart review, lab review, review of studies, review of inpatient medication list Persistent diffuse abd pain Due for ex lap this AM Problem List Medical Problems: (1) PNA (pneumonia) Status: Acute (2) Sepsis Status: Acute Review of Systems Constitutional: No chills, No fever Respiratory: No cough, No shortness of breath, No sputum, No wheezing Cardiac: No chest pain, No orthopnea Abdomen: + nausea, + pain, No diarrhea, No vomiting Musculoskeletal: No joint pain, No muscle pain Male : No dysuria, No urinary frequency Objective Vital Signs Date Time Temp Pulse Resp B/P Pulse Ox O2 Delivery O2 Flow Rate FiO2 02/10/16 08:30 Room Air 02/10/16 07:57 36.6 83 18 148/77 93 Room Air 02/10/16 04:00 Room Air 02/10/16 03:26 36.9 86 17 142/81 92 Room Air 02/09/16 23:59 Room Air 02/09/16 23:28 36.7 85 15 130/81 92 Room Air 02/09/16 20:00 Room Air 02/09/16 19:57 37.0 86 16 127/78 93 Room Air 02/09/16 16:00 Room Air 02/09/16 15:35 36.9 87 18 145/77 97 Room Air 02/09/16 15:12 83 16 91 Room Air Physical Exam General Appearance: WD/WN, + mild distress Respiratory/Chest: chest non-tender, lungs clear Cardiovascular: no edema, no gallop Abdomen: + distended, + tenderness Neurologic/Psychiatric: alert, oriented x 3 Laboratory Results Last 24 Hours Test 02/10/16 04:50 White Blood Count 5.55 K/uL Red Blood Count 3.75 M/uL Hemoglobin 11.2 g/dL Hematocrit 34.1 % Mean Corpuscular Volume 90.9 fL Mean Corpuscular Hemoglobin 29.9 pg Mean Corpuscular Hemoglobin Concent 32.8 g/dl Platelet Count 149 K/uL Mean Platelet Volume 9.3 fL Neutrophils (%) (Auto) 69.3 % Lymphocytes (%) (Auto) 9.2 % Monocytes (%) (Auto) 16.0 % Eosinophils (%) (Auto) 4.7 % Basophils (%) (Auto) 0.4 % Neutrophils # (Auto) 3.85 K/uL Lymphocytes # (Auto) 0.51 K/uL Monocytes # (Auto) 0.89 K/uL Eosinophils # (Auto) 0.26 K/uL Basophils # (Auto) 0.02 K/uL RDW Standard Deviation 51.0 fL RDW Coefficient of Variation 15.2 % Immature Granulocyte % (Auto) 0.4 % Immature Granulocyte # (Auto) 0.02 K/uL Activated Partial Thromboplast Time 29.4 SECONDS Partial Thromboplastin Ratio 1.1 Sodium Level 146 mmol/L Potassium Level 3.8 mmol/L Chloride Level 114 mmol/L Carbon Dioxide Level 24 mmol/L Anion Gap 8.0 mmol/L Blood Urea Nitrogen 21 mg/dl Creatinine 1.60 mg/dl Est Creatinine Clear Calc Drug Dose 41.8 ml/min Estimated GFR () 44.6 Estimated GFR (Non- 38.4 BUN/Creatinine Ratio 13.2 Random Glucose 88 mg/dl Lactic Acid Level 0.7 mmol/L Calcium Level 8.1 mg/dl Magnesium Level 2.2 mg/dl Total Bilirubin 1.6 mg/dl Aspartate Amino Transf (AST/SGOT) 49 U/L Alanine Aminotransferase (ALT/SGPT) 39 U/L Alkaline Phosphatase 39 U/L Total Protein 5.7 gm/dl Albumin 2.3 gm/dl Globulin 3.4 gm/dl Albumin/Globulin Ratio 0.7 Random Vancomycin Level 17.3 mcg/ml Assessment and Plan Mr. Leung is a 85 y/o male with PMHx of Ulcerative Colitis S/P Partial Colectomy with Ileostomy (50 years ago), S/P Appendectomy, BPH S/P TURP, GERD, and MVP who presents to the ED complaining of nausea and vomiting. Patient will be admitted to the telemetry floor for further evaluation and care. Nausea/Vomiting/Diarrhea: Gastroenteritis vs PNA vs Abdominal Etiology - Imaging -- CXR - mild cardiomegaly without evidence of lobar consolidation -- CT Abd/Pelvis without contrast - limited given no contrast - evidence of possible aspiration -- Echo - hyperdynamic; no regional wall motion; EF 65-70% -- C. Diff and Stool Cx - negative -- UA and Cx - uric acid -- BCx - staph species x 1, with repeat BC pending per ID recs - Zosyn and Vanc with pharmacy dosing - Continue IVFs - Replete electrolyte abnormalities - Duonebs QID and Q2H PRN - Zofran 4 mg IV Q6H PRN - Pain - Morphine 1-2 mg PRN - KUB and gallbladder US 02/08 peristent ileus and stones and sludge - Small bowel follow through determined likely mechanical obstruction, due for ex lap 02/09 - Ok for surgery, NSTEMI on admission, ECHO unremarkable - Consult GI - appreciate recommendations Abdominal Pain: - Pain has progressed from epigastric cramping on admission to LLQ "stabbing pain" to upper abdomen distention and diffuse pain - KUB - image and report reviewed - SBO vs Ileus - CT Abd/Pelvis with oral contrast - SBO; L lobe liver gas - portal venous gas; and stones/sludge in GB - Consult Gen Surg - appreciate further recommendations - possible necrotic bowel vs cholecystitis with SBO? Acute Kidney Injury: Baseline Unknown - Last Cr 1.10 (Sep 2015): - NSS 100 mL/hr - has received bolus in ED - Continue monitoring - serial BMPs Elevated Troponin: NSTEMI vs Demand Ischemia - EKG - reviewed - Sinus Tach without T wave inversions or obvious ischemic changes - Trops increased but trending down - Cardiology following - agree with recommendations - D/C Heparin gtt - 48 hour coverage will be complete Hypotension: - Patient reports his BP is normally "very low" and has received NSS boluses in ED - Will hold Propranolol ER and Lisinopril at this time - will reinstitute when baseline vitals established Mechanical Fall: Prior to Admission 2/2 Intractable Vomiting - XR Thoracic and Cervical - image and report reviewed - degenerative changes no acute fractures GERD: - Protonix 40 mg daily as interchange for Omeprazole DVT Prophylaxis: - Heparin 5000 units Q12H Code Status: - FULL RESUSCITATION
--- NOTE | 2016-02-10 13:41 | [facility] Post Operative Brief Note ---
Immediate Operative Summary Operative Date Feb 10, 2016. Pre-Operative Diagnosis Small Bowel Obstruction Aspiration Pneumonitis non-STEMI Chronic ileostomy Post-Operative Diagnosis Same as preoperative Procedure(s) Performed Exploratory Laparotomy, Enterolysis Surgeon Dr. Auguste Planer Feeder Surgeon(s) Dr. Horner Estimated Blood Loss 25ml Findings internal hernia and bowel twisted around a adhesive band, no ischemic bowel, non -inflamed GB with stones. Fluids (cc crystalloids) 3500 cc, u/o 140 Specimens None per surgeon Drains none Complication(s) None Disposition Surgical ICU
--- NOTE | 2016-02-10 14:46 | OPERATIVE REPORT ---
DATE OF OPERATION: 02/10/2016 PREOPERATIVE DIAGNOSES: 1. Small bowel obstruction. 2. Aspiration pneumonitis. 3. Non-ST segment elevation myocardial infarction cardiac ischemic event. 4. Chronic ileostomy, status post total colectomy for ulcerative colitis 50 years ago. POSTOPERATIVE DIAGNOSES: Same. PROCEDURE: Exploratory laparotomy and enterolysis. SURGEON: Dr. Auguste. [employer]: Dr. Horner. ANESTHESIOLOGIST: Dr. Smith. ANESTHESIA: General and local 0.25% Marcaine with epinephrine. ESTIMATED BLOOD LOSS: 25 mL. FLUIDS: 3500 mL of crystalloid. URINE OUTPUT: 140 mL. SPECIMENS: None. OPERATIVE FINDINGS: Internal hernia and bowel twist around an adhesive band, arising from the antimesenteric side of another loop of small bowel, no bowel ischemia and noninflamed gallbladder with cholelithiasis. DRAINS: None. COMPLICATIONS: None. INDICATIONS: This is an 85-year-old male with sudden onset of vomiting, followed by nausea and then abdominal pain. 2-3 days after the initial episode, the patient became bloated and very uncomfortable. The ileostomy stopped functioning. A CT scan was consistent with small bowel obstruction, possible ileus and there was also some gas in the portal venous system. A small bowel followthrough was consistent with a small bowel obstruction. As a result, the patient required an exploratory laparotomy. Prior to this, he had also aspirated some of his vomit, resulting in an aspiration pneumonitis which over the last 4 days had improved and also he had a non-STEMI cardiac event with good ejection fraction and no transmural myocardial infarction. The patient requires an exploratory laparotomy with enterolysis. DESCRIPTION OF PROCEDURE: The patient was taken to the operating room and placed on table in supine position. He was identified after an adequate level of general endotracheal anesthesia had been obtained. The abdomen was clipped, prepped and draped in sterile fashion. Right ileostomy appliance was left in place and was draped outside the field. DuraPrep occlusive sterile drape was used. A timeout was called. The patient was identified by name and procedure. The OR crew agreed and the operation continued. The previous incision scar was marked with marking pen, as was the midline. The previous incision was a paramedian incision on the left side. It was elected to perform a midline exploratory laparotomy incision. This was done with a #10 scalpel and carried into subcutaneous tissue down to the fascia. Fascia was divided with electrocautery and then the underlying tissue was carefully dissected down to the peritoneum. Peritoneum was carefully entered with a scalpel and then opened with Metzenbaum scissors, taking care to avoid any injury to underlying structures. Care was taken to avoid any injury to bowel, which may have been adhesed to the posterior surface of the anterior abdominal wall. There was none present. In fact there was omentum and this was gently peeled down. The adhesions between the omentum and the abdominal wall were sharply taken down with Metzenbaum scissors. This took quite some time in order to adequately get into the abdominal cavity. Once the omentum had been completely mobilized, it was rotated up and out and exposing the ligament of Treitz and starting at the ligament of Treitz, the bowel which was distended was run distally, inspecting it. There was no evidence of ischemia found along the entire length of the small bowel from the ligament of Treitz to the ileostomy. However, there were multiple areas of adhesions and scar tissue. In fact there was a large loop of bowel which dove straight down into the pelvis and then came out again. It was not kinked or twisted. It was adhesed primarily on its mesenteric side to the pelvic wall, but there was no partial or complete obstruction in this loop of bowel. However, beyond that point, there was a loop of bowel which had been entrapped in an internal hernia created by adhesions. These adhesions were released, releasing that segment of bowel. Beyond that point, the bowel was somewhat decompressed but still had contents. It was run even further, where a loop of bowel having an adhesion on its antimesenteric side, up towards the ileostomy site, in which the distal ileum just before the stoma was wrapped around it, causing a partial obstruction. This adhesion was dissected free, divided and then the serosa of the bowel on its antimesenteric side was repaired transversely in 2 layers of interrupted 3-0 silk suture. The lumen of the bowel was palpated. It was patent. This was a somewhat unusual finding and I had called Dr. Horner into the case to assist me with this portion of the procedure. Once this had been completed, the bowel was again run from the ligament of Treitz down through the pelvis and to the ileostomy. There were no other areas that were creating a partial or complete bowel obstruction. The abdomen was then thoroughly irrigated with warm normal saline, at least 2 liters were used, serial dilution technique was used. This was evacuated. The bowel was replaced in its normal position in the abdominal cavity. The omentum was pulled over it and then the peritoneum was approximated with a running 0 Vicryl, followed by closure of the abdominal fascia wall with a running #1 PDS. The subcutaneous tissue was irrigated and then the fascia and subcutaneous tissue were infiltrated with some 0.25% Marcaine with epinephrine and the subcutaneous tissue was approximated with a running 0 Vicryl, followed by closure of the skin with vinicius. Sterile dressing was applied using 4 x 4s and Medipore tape. The patient had a large binder placed snugly and the ileostomy bag was inspected. It now contained some air and had a significant amount of fluid. Nurses were instructed to have the nursing staff change the appliance once the patient arrived on the floor. The patient was then reversed from anesthesia and extubated and sent to intensive care unit for further monitoring. He will require a chest x-ray today and also perioperative cardiac enzymes. Continue the IV fluid hydration. If the patient has a prolonged postoperative ileus, he may require intravenous parenteral nutrition. I have discussed this with his and family. We will continue the NG suction at this point and the Miller catheter. I attest to the content of the Intraoperative Record and any orders documented therein. Any exceptions are noted below. ELSIE
--- NOTE | 2016-02-10 14:56 | Anesthesiology Progress Note ---
Anesthesia Post Op Note Date & Time Feb 10, 2016 at 14:56 Vital Signs Pain Intensity: 0.0 Vital Signs Past 12 Hours Date Time Temp Pulse Resp B/P Pulse Ox O2 Delivery O2 Flow Rate FiO2 02/10/16 14:50 36.8 85 20 124/80 97 Nasal Cannula 2.0 02/10/16 14:20 36.6 84 16 117/86 98 Nasal Cannula 4 02/10/16 14:10 84 16 121/75 98 Nasal Cannula 4 02/10/16 14:00 85 16 135/84 98 Nasal Cannula 4 02/10/16 13:50 83 16 144/88 100 Mask 10 02/10/16 13:40 84 16 159/96 100 Mask 10 02/10/16 13:31 36.5 81 16 152/103 100 Mask 10 02/10/16 08:30 Room Air 02/10/16 07:57 36.6 83 18 148/77 93 Room Air 02/10/16 04:00 Room Air 02/10/16 03:26 36.9 86 17 142/81 92 Room Air Notes Mental Status: alert / awake / arousable Nausea / Vomiting: adequately controlled Pain: adequately controlled Airway Patency, RR, SpO2: stable & adequate BP & HR: stable & adequate Hydration State: stable & adequate Anesthetic Complications: no major complications apparent
--- NOTE | 2016-02-10 16:41 | DIAGNOSTIC IMAGING REPORT ---
CHEST ONE VIEW PORTABLE HISTORY: aspiration COMPARISON: Chest 02/10/2016. FINDINGS: Nasogastric tube terminates in the stomach. No pneumothorax. Chronic elevation of the right hemidiaphragm. The heart remains mildly enlarged. Trace bilateral pleural effusions and bibasilar densities remain unchanged. No evidence for pulmonary edema. IMPRESSION: 1. No change in the trace bilateral pleural effusions and bibasilar densities. 2. Chronic elevation of the right hemidiaphragm and cardiomegaly persist. Electronically signed by: Jonel Smith M.D. 02/10/2016 4:39 PM
[2016-02-10] MEDS: ONDANSETRON INJ 2 MG/ML 2 ML VIAL IV PRN (19:12)
[2016-02-10] MEDS: MoRPHine SULFATE 2 MG/ML CARP IV PRN (19:12)
[2016-02-10 19:29] LABS: CALCIUM 7.7 mg/dl (8.5-10.1); CREATININE 1.8 mg/dl (0.60-1.40); POTASSIUM 3.9 mmol/L (3.5-5.1)
[2016-02-10 19:41] LABS: HEMATOCRIT 42.6 % (42-52); MEAN CELL VOLUME 91.4 fL (80-100); MEAN CORPUSCULAR HEMOGLOBIN 30.3 pg (25-34); MEAN CORPUSCULAR HGB CONC 33.1 g/dl (32-36); MEAN PLATELET VOLUME 10.1 fL (7.4-10.4); PLATELET COUNT 220 K/uL (130-400); RED BLOOD COUNT 4.66 M/uL (4.7-6.1); WHITE BLOOD COUNT 8.95 K/uL (4.8-10.8)
[2016-02-10 19:43] LABS: ALB/GLOB RATIO 0.7 (0.9-2)
[2016-02-10] MEDS ORDERED: NURSING VERBAL MED ORDER ONE (19:45)
[2016-02-10 19:57] LABS: BASO % 0.6 %; BASO ABS # 0.05 K/uL (0-0.2); COMPLETE YES; ECHINOCYTES 1+; EOS % 2.7 %; IG% 0.6 %; LYMPH % 14.1 %; LYMPH ABS # 1.26 K/uL (1.2-3.4); MONO % 9.3 %; NEUT % 72.7 %
--- NOTE | 2016-02-10 20:07 | Gastroenterology Progress Note ---
Progress Note Date of Service: Feb 10, 2016 Subjective Pt evaluation today including: conversation w/ patient, physical exam, chart review, lab review, review of studies, review of inpatient medication list cc f/u SBO HPI Reviewed notes from today went to OR for SBO and internal hernia from adhesions noted but no bowel. Pt feels abd pain better overall post surgery. NG putting out some green bile and some ileostomy output noted as well. Review of Systems Respiratory: No shortness of breath Cardiac: No chest pain Medications Current Inpatient Medications Medications (Trade) Dose Ordered Sig/Karen Route Start Time Stop Time Status Last Admin Dose Admin Acetaminophen (Tylenol Tab) 650 mg Q4H PRN PO 02/05/16 13:15 03/06/16 13:14 02/07/16 23:13 650 MG Al Hydrox/Mg Hydrox/Simethicone (Maalox Max Susp) 15 ml Q4H PRN PO 02/05/16 13:15 03/06/16 13:14 Magnesium Hydroxide (Milk Of Magnesia Susp) 30 ml Q12H PRN PO 02/05/16 13:15 03/06/16 13:14 Nitroglycerin (Nitrostat Tab) 0.4 mg UD PRN SL 02/05/16 13:15 03/06/16 13:14 Polyethylene 17 gm 17 gm DAILY PRN PO 02/05/16 13:15 03/06/16 13:14 Piperacillin Sod/ Tazobactam Sod/ Dextrose (Zosyn Iv/D5 100ml) 115 ml @ 28.75 mls/ hr Q8H IV 02/05/16 18:00 02/15/16 17:59 02/10/16 17:01 28.75 MLS/HR Aspirin (Ecotrin Tab) 81 mg DAILY PO 02/06/16 09:00 03/07/16 08:59 02/08/16 07:52 81 MG Cholecalciferol (Vitamin D Tab) 1,000 inter.unit DAILY PO 02/06/16 09:00 03/07/16 08:59 02/08/16 07:52 1,000 INTER.UNIT Magnesium Oxide (Mag-Ox Tab) 400 mg DAILY PO 02/06/16 09:00 03/07/16 08:59 02/08/16 07:52 400 MG Multivitamins (Multivitamin Tab) 1 tab DAILY PO 02/06/16 09:00 1/20/17 08:59 02/08/16 07:52 1 TAB Primidone (Mysoline Tab) 50 mg DAILY PO 02/06/16 09:00 03/07/16 08:59 02/08/16 07:52 50 MG Pantoprazole Sodium (Protonix Tab) 40 mg QAM PO 02/06/16 09:00 03/07/16 08:59 02/08/16 07:52 40 MG Piperacillin Sod/ Tazobactam Sod (Consult) 1 ea UD PRN N/A 02/05/16 14:45 03/06/16 14:44 Oxycodone/ Acetaminophen (Percocet 5-325MG Tab) 1 tab Q6H PRN PO 02/06/16 14:15 02/20/16 14:14 Vancomycin HCl (Consult) 1 ea UD PRN N/A 02/07/16 09:45 03/08/16 09:44 Heparin Sodium (Porcine) 5000 unit 5,000 unit Q12 SQ 02/08/16 09:00 03/09/16 08:59 02/09/16 21:02 5,000 UNIT Potassium Chloride/Sodium Chloride (Nss + 20meq KCl 1000ml) 1,000 ml @ 100 mls/hr Q10H IV 02/08/16 13:30 03/09/16 13:29 02/10/16 16:12 100 MLS/HR Albuterol/ Ipratropium (Combivent Respimat Inh) 1 puffs QID INH 02/09/16 21:00 03/10/16 20:59 02/10/16 16:58 1 PUFFS Albuterol/ Ipratropium (Duoneb) 3 ml Q2H PRN INH 02/09/16 16:15 03/06/16 15:59 Morphine Sulfate (MoRPHine SULFATE INJ) 4 mg Q3H PRN IV 02/10/16 19:45 02/24/16 19:44 Hydromorphone HCl (Dilaudid Inj) 0.5 mg Q3H PRN IV 02/10/16 19:45 02/24/16 19:44 Ondansetron HCl (Zofran Inj) 4 mg Q4H PRN IV 02/10/16 23:00 03/11/16 22:59 Objective Vital Signs Date Time Temp Pulse Resp B/P Pulse Ox O2 Delivery O2 Flow Rate FiO2 02/10/16 19:18 36.8 107 18 109/75 97 Nasal Cannula 2.0 02/10/16 18:30 36.5 109 18 124/80 99 Nasal Cannula 2.0 02/10/16 18:00 36.6 99 18 148/90 98 Nasal Cannula 2.0 02/10/16 17:00 36.8 96 18 143/91 99 Nasal Cannula 2.0 02/10/16 16:40 36.7 103 18 144/90 99 Nasal Cannula 2.0 02/10/16 16:25 36.8 97 18 155/94 99 Nasal Cannula 2.0 02/10/16 16:10 36.7 91 18 153/92 97 Nasal Cannula 2.0 02/10/16 15:55 36.8 92 18 138/84 97 Nasal Cannula 2.0 02/10/16 15:40 36.7 91 18 136/84 97 Nasal Cannula 2.0 02/10/16 15:30 Nasal Cannula 2.0 02/10/16 15:25 36.8 83 18 131/83 97 Nasal Cannula 2.0 02/10/16 15:10 36.7 82 18 121/80 98 Nasal Cannula 2.0 02/10/16 14:50 36.8 85 20 124/80 97 Nasal Cannula 2.0 02/10/16 14:45 2.0 02/10/16 14:20 36.6 84 16 117/86 98 Nasal Cannula 4 02/10/16 14:10 84 16 121/75 98 Nasal Cannula 4 02/10/16 14:00 85 16 135/84 98 Nasal Cannula 4 02/10/16 13:50 83 16 144/88 100 Mask 10 02/10/16 13:40 84 16 159/96 100 Mask 10 02/10/16 13:31 36.5 81 16 152/103 100 Mask 10 02/10/16 08:30 Room Air 02/10/16 07:57 36.6 83 18 148/77 93 Room Air 02/10/16 04:00 Room Air 02/10/16 03:26 36.9 86 17 142/81 92 Room Air 02/09/16 23:59 Room Air 02/09/16 23:28 36.7 85 15 130/81 92 Room Air Physical Exam General Appearance: WD/WN, no apparent distress Respiratory/Chest: lungs clear, no respiratory distress Cardiovascular: regular rate, rhythm, no edema Abdomen: soft, + pertinent finding (mild distension, do not appreciate bowel sound, no guarding nor rebound, ) Laboratory Results Last 24 Hours Test 02/10/16 04:50 02/10/16 18:57 White Blood Count 5.55 K/uL 8.95 K/uL Red Blood Count 3.75 M/uL 4.66 M/uL Hemoglobin 11.2 g/dL 14.1 g/dL Hematocrit 34.1 % 42.6 % Mean Corpuscular Volume 90.9 fL 91.4 fL Mean Corpuscular Hemoglobin 29.9 pg 30.3 pg Mean Corpuscular Hemoglobin Concent 32.8 g/dl 33.1 g/dl Platelet Count 149 K/uL 220 K/uL Mean Platelet Volume 9.3 fL 10.1 fL Neutrophils (%) (Auto) 69.3 % 72.7 % Lymphocytes (%) (Auto) 9.2 % 14.1 % Monocytes (%) (Auto) 16.0 % 9.3 % Eosinophils (%) (Auto) 4.7 % 2.7 % Basophils (%) (Auto) 0.4 % 0.6 % Neutrophils # (Auto) 3.85 K/uL 6.52 K/uL Lymphocytes # (Auto) 0.51 K/uL 1.26 K/uL Monocytes # (Auto) 0.89 K/uL 0.83 K/uL Eosinophils # (Auto) 0.26 K/uL 0.24 K/uL Basophils # (Auto) 0.02 K/uL 0.05 K/uL RDW Standard Deviation 51.0 fL 50.7 fL RDW Coefficient of Variation 15.2 % 15.2 % Immature Granulocyte % (Auto) 0.4 % 0.6 % Immature Granulocyte # (Auto) 0.02 K/uL 0.05 K/uL Activated Partial Thromboplast Time 29.4 SECONDS Partial Thromboplastin Ratio 1.1 Sodium Level 146 mmol/L 147 mmol/L Potassium Level 3.8 mmol/L 3.9 mmol/L Chloride Level 114 mmol/L 112 mmol/L Carbon Dioxide Level 24 mmol/L 25 mmol/L Anion Gap 8.0 mmol/L 10.0 mmol/L Blood Urea Nitrogen 21 mg/dl 22 mg/dl Creatinine 1.60 mg/dl 1.80 mg/dl Est Creatinine Clear Calc Drug Dose 41.8 ml/min 37.1 ml/min Estimated GFR () 44.6 38.6 Estimated GFR (Non- 38.4 33.3 BUN/Creatinine Ratio 13.2 12.0 Random Glucose 88 mg/dl 101 mg/dl Lactic Acid Level 0.7 mmol/L Calcium Level 8.1 mg/dl 7.7 mg/dl Magnesium Level 2.2 mg/dl Total Bilirubin 1.6 mg/dl 2.8 mg/dl Aspartate Amino Transf (AST/SGOT) 49 U/L 56 U/L Alanine Aminotransferase (ALT/SGPT) 39 U/L 48 U/L Alkaline Phosphatase 39 U/L 47 U/L Total Protein 5.7 gm/dl 5.8 gm/dl Albumin 2.3 gm/dl 2.3 gm/dl Globulin 3.4 gm/dl 3.5 gm/dl Albumin/Globulin Ratio 0.7 0.7 Random Vancomycin Level 17.3 mcg/ml Echinocytes 1+ Troponin I 0.094 ng/ml Assessment and Plan SBO with portal venous gas-- s/p expl lap 02/10/16 Abdominal pain--post op pain but overall better N/V--NG in place awaiting return of bowel function Diarrhea----stool WBCs negative--Giardia, Cryptsporidia, and O and P pending; could have been from SBO. See if recurs post recovery from surgery. Elevated LFTS--worse this am could be from process of SBO and stress on body--- continue to follow Dr Kennedy assuming GI care tomorrow 02/11/16 at 0730.
[2016-02-10] MEDS: HYDROmorphone INJ 1 MG/ML SYR IV PRN (21:53)
[2016-02-11] VITALS (9 sets, daily range): BP systolic 126–153; BP diastolic 82–85; PULSE 17–114; TEMP 36.6–37.3; O2SAT 93–97
[2016-02-11] MEDS: MoRPHine SULFATE 4 MG/ML 1 ML CARP\\VIAL IV PRN ×7 (00:09→23:52)
[2016-02-11] MEDS: NSS + 20MEQ KCL 1000ML 1,000 ML IV SCH ×3 (01:51→20:01)
[2016-02-11] MEDS: PIPERACILL/TAZOBAC IV 3.375 GM in DEXTROSE 5% 100ML 100 ML IV SCH ×3 (01:52→17:02)
[2016-02-11] MEDS: HYDROmorphone INJ 1 MG/ML SYR IV PRN ×2 (03:06→07:56)
[2016-02-11 07:31] LABS: BASO % 0.4 %; BASO ABS # 0.04 K/uL (0-0.2); COMPLETE YES; EOS % 2.1 %; HEMATOCRIT 39.2 % (42-52); LYMPH % 7.2 %; LYMPH ABS # 0.64 K/uL (1.2-3.4); MEAN CELL VOLUME 92.5 fL (80-100); MEAN CORPUSCULAR HEMOGLOBIN 30.2 pg (25-34); MEAN CORPUSCULAR HGB CONC 32.7 g/dl (32-36); MEAN PLATELET VOLUME 9.8 fL (7.4-10.4); MONO % 15.9 %; NEUT % 73.4 %; PLATELET COUNT 211 K/uL (130-400); RED BLOOD COUNT 4.24 M/uL (4.7-6.1); WHITE BLOOD COUNT 8.93 K/uL (4.8-10.8)
[2016-02-11 07:42] LABS: PARTIAL THROMBOPLASTIN RATIO 1.1
[2016-02-11] MEDS: IPRATROPIUM BROMIDE/ALBUTEROL respimat INH INH SCH ×4 (07:51→19:47)
[2016-02-11] MEDS: PRIMIDONE 50 MG TAB PO SCH (07:52)
[2016-02-11] MEDS: PANTOprazole SOD 40 MG TAB PO SCH (07:52)
[2016-02-11] MEDS: HEPARIN SOD 5000 UNIT/0.5 ML CARP SQ SCH ×2 (07:53→20:01)
[2016-02-11 07:55] LABS: BUN/CREATININE RATIO 13.9 (10-20); CALCIUM 7.6 mg/dl (8.5-10.1); CREATININE 1.9 mg/dl (0.60-1.40); POTASSIUM 4.3 mmol/L (3.5-5.1)
[2016-02-11 08:03] LABS: ALB/GLOB RATIO 0.6 (0.9-2)
[2016-02-11] MEDS: ASPIRIN 81 MG ECTAB PO SCH (09:00)
[2016-02-11] MEDS: MULTIVITAMIN TAB PO SCH (09:00)
[2016-02-11] MEDS: CHOLECALCIFEROL 1000 INTER.UNIT TAB PO SCH (09:00)
[2016-02-11] MEDS: MAGNESIUM OXIDE 400 MG TAB PO SCH (09:00)
--- NOTE | 2016-02-11 09:11 | PROGRESS NOTE ---
DATE: 02/11/2016 The patient is postop day 1 for internal hernia with lysis of adhesions. HISTORY OF PRESENT ILLNESS: The patient complains of abdominal pain postoperatively. He is asking when he can get his Miller catheter removed. OBJECTIVE: VITAL SIGNS: Blood pressure is 153/85, pulse 98, temperature is 36.8. ABDOMEN: Bandaged. Bowel sounds are hypoactive. LABORATORY: Shows a white count of 8.93, hemoglobin 12.8, platelets are 211. Sodium 148, potassium 4.3, BUN 26, creatinine 1.9. IMPRESSION: The patient has obstructed bowel which has been repaired without any evidence of chronic bowel. Currently, the patient is not passing any gas out his ileostomy. The patient will continue his postoperative care and hopefully get his Miller out soon, and once he starts passing flatus and moving air through, he will hopefully be able to get his nasogastric tube out. I will continue to follow the patient.
--- NOTE | 2016-02-11 11:21 | Progress Note ---
Subjective Date of Service: Feb 11, 2016. Subjective Pt evaluation today including: conversation w/ patient, physical exam, chart review, lab review, review of studies, conversation w/ recruitment consultant, review of inpatient medication list Pt resting in bed comfortably Just received morphine dose Abd binder Sitting up to edge of bed No bowel movements per nursing staff Problem List Medical Problems: (1) PNA (pneumonia) Status: Acute (2) Sepsis Status: Acute Review of Systems Constitutional: No chills, No fever Respiratory: No cough, No sputum Cardiac: No chest pain, No orthopnea Abdomen: + nausea, + pain, No diarrhea, No vomiting Musculoskeletal: No joint pain, No muscle pain Male : No dysuria, No urinary frequency Objective Vital Signs Date Time Temp Pulse Resp B/P Pulse Ox O2 Delivery O2 Flow Rate FiO2 02/11/16 08:04 36.8 98 20 153/85 97 Room Air 02/11/16 08:01 96 Nasal Cannula 2.0 02/11/16 04:00 Nasal Cannula 02/11/16 03:19 36.6 101 17 126/83 96 Nasal Cannula 2.0 02/10/16 23:59 Nasal Cannula 02/10/16 23:13 36.9 106 19 126/78 96 Nasal Cannula 2.0 02/10/16 20:00 Nasal Cannula 02/10/16 19:18 36.8 107 18 109/75 97 Nasal Cannula 2.0 02/10/16 18:30 36.5 109 18 124/80 99 Nasal Cannula 2.0 02/10/16 18:00 36.6 99 18 148/90 98 Nasal Cannula 2.0 02/10/16 17:00 36.8 96 18 143/91 99 Nasal Cannula 2.0 02/10/16 16:40 36.7 103 18 144/90 99 Nasal Cannula 2.0 02/10/16 16:25 36.8 97 18 155/94 99 Nasal Cannula 2.0 02/10/16 16:10 36.7 91 18 153/92 97 Nasal Cannula 2.0 02/10/16 15:55 36.8 92 18 138/84 97 Nasal Cannula 2.0 02/10/16 15:40 36.7 91 18 136/84 97 Nasal Cannula 2.0 02/10/16 15:30 Nasal Cannula 2.0 02/10/16 15:25 36.8 83 18 131/83 97 Nasal Cannula 2.0 02/10/16 15:10 36.7 82 18 121/80 98 Nasal Cannula 2.0 02/10/16 14:50 36.8 85 20 124/80 97 Nasal Cannula 2.0 02/10/16 14:45 2.0 02/10/16 14:20 36.6 84 16 117/86 98 Nasal Cannula 4 02/10/16 14:10 84 16 121/75 98 Nasal Cannula 4 02/10/16 14:00 85 16 135/84 98 Nasal Cannula 4 02/10/16 13:50 83 16 144/88 100 Mask 10 02/10/16 13:40 84 16 159/96 100 Mask 10 02/10/16 13:31 36.5 81 16 152/103 100 Mask 10 Physical Exam General Appearance: WD/WN, + mild distress Neck: supple, no adenopathy Respiratory/Chest: lungs clear, normal breath sounds Cardiovascular: no edema, no gallop Abdomen: soft, + distended, + tenderness Neurologic/Psychiatric: alert, normal mood/affect, oriented x 3 Laboratory Results Last 24 Hours Test 02/10/16 18:57 02/11/16 07:20 White Blood Count 8.95 K/uL 8.93 K/uL Red Blood Count 4.66 M/uL 4.24 M/uL Hemoglobin 14.1 g/dL 12.8 g/dL Hematocrit 42.6 % 39.2 % Mean Corpuscular Volume 91.4 fL 92.5 fL Mean Corpuscular Hemoglobin 30.3 pg 30.2 pg Mean Corpuscular Hemoglobin Concent 33.1 g/dl 32.7 g/dl Platelet Count 220 K/uL 211 K/uL Mean Platelet Volume 10.1 fL 9.8 fL Neutrophils (%) (Auto) 72.7 % 73.4 % Lymphocytes (%) (Auto) 14.1 % 7.2 % Monocytes (%) (Auto) 9.3 % 15.9 % Eosinophils (%) (Auto) 2.7 % 2.1 % Basophils (%) (Auto) 0.6 % 0.4 % Neutrophils # (Auto) 6.52 K/uL 6.55 K/uL Lymphocytes # (Auto) 1.26 K/uL 0.64 K/uL Monocytes # (Auto) 0.83 K/uL 1.42 K/uL Eosinophils # (Auto) 0.24 K/uL 0.19 K/uL Basophils # (Auto) 0.05 K/uL 0.04 K/uL RDW Standard Deviation 50.7 fL 52.1 fL RDW Coefficient of Variation 15.2 % 15.4 % Immature Granulocyte % (Auto) 0.6 % 1.0 % Immature Granulocyte # (Auto) 0.05 K/uL 0.09 K/uL Echinocytes 1+ Sodium Level 147 mmol/L 148 mmol/L Potassium Level 3.9 mmol/L 4.3 mmol/L Chloride Level 112 mmol/L 115 mmol/L Carbon Dioxide Level 25 mmol/L 23 mmol/L Anion Gap 10.0 mmol/L 10.0 mmol/L Blood Urea Nitrogen 22 mg/dl 26 mg/dl Creatinine 1.80 mg/dl 1.90 mg/dl Est Creatinine Clear Calc Drug Dose 37.1 ml/min 35.2 ml/min Estimated GFR () 38.6 36.2 Estimated GFR (Non- 33.3 31.2 BUN/Creatinine Ratio 12.0 13.9 Random Glucose 101 mg/dl 106 mg/dl Calcium Level 7.7 mg/dl 7.6 mg/dl Total Bilirubin 2.8 mg/dl 2.7 mg/dl Aspartate Amino Transf (AST/SGOT) 56 U/L 43 U/L Alanine Aminotransferase (ALT/SGPT) 48 U/L 43 U/L Alkaline Phosphatase 47 U/L 39 U/L Troponin I 0.094 ng/ml 0.075 ng/ml Total Protein 5.8 gm/dl 5.5 gm/dl Albumin 2.3 gm/dl 2.1 gm/dl Globulin 3.5 gm/dl 3.4 gm/dl Albumin/Globulin Ratio 0.7 0.6 Activated Partial Thromboplast Time 27.5 SECONDS Partial Thromboplastin Ratio 1.1 Random Vancomycin Level 19.3 mcg/ml Assessment and Plan Mr. Leung is a 85 y/o male with PMHx of Ulcerative Colitis S/P Partial Colectomy with Ileostomy (50 years ago), S/P Appendectomy, BPH S/P TURP, GERD, and MVP who presents to the ED complaining of nausea and vomiting. Patient will be admitted to the telemetry floor for further evaluation and care. Nausea/Vomiting/Diarrhea: Gastroenteritis vs PNA vs Abdominal Etiology - Imaging -- CXR - mild cardiomegaly without evidence of lobar consolidation -- CT Abd/Pelvis without contrast - limited given no contrast - evidence of possible aspiration -- Echo - hyperdynamic; no regional wall motion; EF 65-70% -- C. Diff and Stool Cx - negative -- UA and Cx - uric acid -- BCx - staph species x 1, with repeat BC neg - Zosyn and Vanc with pharmacy dosing - Continue IVFs - Replete electrolyte abnormalities - Duonebs QID and Q2H PRN - Zofran 4 mg IV Q6H PRN - Pain - Morphine 1-2 mg PRN - KUB and gallbladder US 02/08 peristent ileus and stones and sludge - Small bowel follow through determined likely mechanical obstruction, ex lap , adhesions noted, no ischemic bowel - Cont to monitor for ileus and pneumonitis - Consult GI - appreciate recommendations Abdominal Pain: - Pain has progressed from epigastric cramping on admission to LLQ "stabbing pain" to upper abdomen distention and diffuse pain - KUB - image and report reviewed - SBO vs Ileus - CT Abd/Pelvis with oral contrast - SBO; L lobe liver gas - portal venous gas; and stones/sludge in GB - Consult Gen Surg - appreciate further recommendations Acute Kidney Injury: Baseline Unknown - Last Cr 1.10 (Sep 2015): - NSS 100 mL/hr - has received bolus in ED - Continue monitoring - serial BMPs Elevated Troponin: NSTEMI vs Demand Ischemia - EKG - reviewed - Sinus Tach without T wave inversions or obvious ischemic changes - Trops increased but trending down - Cardiology following - agree with recommendations - D/C Heparin gtt - 48 hour coverage will be complete Hypotension: - Patient reports his BP is normally "very low" and has received NSS boluses in ED - Will hold Propranolol ER and Lisinopril at this time - will reinstitute when baseline vitals established Mechanical Fall: Prior to Admission 2/2 Intractable Vomiting - XR Thoracic and Cervical - image and report reviewed - degenerative changes no acute fractures GERD: - Protonix 40 mg daily as interchange for Omeprazole DVT Prophylaxis: - Heparin 5000 units Q12H Code Status: - FULL RESUSCITATION
--- NOTE | 2016-02-11 12:15 | SURGERY PROGRESS NOTE ---
DATE: 02/11/2016 PROVIDER: Dr. Auguste, general surgery. SUBJECTIVE: I have evaluated the patient at the bedside in the presence of his . He is resting comfortably in bed. The NG tube is in place and functioning. He says it did come out and the nurse had to replace it. Also states that the Miller catheter is bothering him. He has minimal abdominal pain. No fever or chills. PHYSICAL EXAMINATION: VITAL SIGNS: Temperature 36.8, blood pressure 130/83, heart rate 114, respirations 20, O2 saturation 93% on room air. good urine output. CHEST: Clear. No rales or rhonchi, slightly decreased breath sounds in the bases. HEART: Regular rate and rhythm, slightly tachycardiac, normal S1, S2 heart sounds. ABDOMEN: Slightly distended, abdominal binder in place. The wound is clean and dry. He does have bowel sounds in all 4 quadrants. There is fluid in the ileostomy appliance but no air. The patient has no rebound or guarding. EXTREMITIES: Bilateral calves are soft and supple, nontender. LABORATORY DATA: White count 8.9, hemoglobin 12.8, platelets 211; polys 73%. Chemistry - sodium and chloride are slightly elevated, creatinine is 1.9, improved from admission. Total bilirubin is 2.7, slightly elevated. Also the AST is 43, coming down from 56; alkaline phosphatase 39. Troponin level postoperative 0.075, slightly elevated; albumin 2.1. IMPRESSION: 1. Status post exploratory laparotomy, enterolysis. 2. Anticipated postoperative ileus. 3. Mild renal insufficiency. 4. Bilateral basilar lung atelectasis, stable after the aspiration pneumonitis prior to admission. 5. Slightly elevated postoperative troponin level. PLAN: Continue IV fluids, NG tube decompression, the Miller catheter may be removed. The patient may be out of bed ambulating with the NG tube clamped transiently. Hopefully, the bilirubin elevation is just some cholestatic jaundice and not the patient passing a gallbladder stone. MTDD
[2016-02-12] MEDS: PIPERACILL/TAZOBAC IV 3.375 GM in DEXTROSE 5% 100ML 100 ML IV SCH (02:19)
[2016-02-12] MEDS: MoRPHine SULFATE 4 MG/ML 1 ML CARP\\VIAL IV PRN ×3 (03:00→11:29)
[2016-02-12 04:00] VITALS: BP 143/87; PULSE 101; TEMP 36.8; O2SAT 94
[2016-02-12 06:06] LABS: BASO % 0.6 %; BASO ABS # 0.06 K/uL (0-0.2); COMPLETE YES; EOS % 3.7 %; IG% 1.5 %; LYMPH % 9.9 %; LYMPH ABS # 0.93 K/uL (1.2-3.4); MEAN CELL VOLUME 93.8 fL (80-100); MEAN CORPUSCULAR HEMOGLOBIN 30.6 pg (25-34); MEAN CORPUSCULAR HGB CONC 32.6 g/dl (32-36); MEAN PLATELET VOLUME 9.8 fL (7.4-10.4); MONO % 14.8 %; NEUT % 69.5 %; PLATELET COUNT 268 K/uL (130-400); RED BLOOD COUNT 3.73 M/uL (4.7-6.1); WHITE BLOOD COUNT 9.38 K/uL (4.8-10.8)
[2016-02-12] MEDS: NSS + 20MEQ KCL 1000ML 1,000 ML IV SCH (06:12)
[2016-02-12 08:00] VITALS: BP 149/77; PULSE 77; TEMP 36.4; O2SAT 96
[2016-02-12] MEDS: ONDANSETRON INJ 2 MG/ML 2 ML VIAL IV PRN (08:10)
[2016-02-12] MEDS: MAGNESIUM OXIDE 400 MG TAB PO SCH (08:13)
[2016-02-12] MEDS: MULTIVITAMIN TAB PO SCH (08:13)
[2016-02-12] MEDS: PRIMIDONE 50 MG TAB PO SCH (08:13)
[2016-02-12] MEDS: CHOLECALCIFEROL 1000 INTER.UNIT TAB PO SCH (08:13)
[2016-02-12] MEDS: PANTOprazole SOD 40 MG TAB PO SCH (08:13)
[2016-02-12] MEDS: ASPIRIN 81 MG ECTAB PO SCH (08:13)
[2016-02-12] MEDS: IPRATROPIUM BROMIDE/ALBUTEROL respimat INH INH SCH ×4 (08:14→20:45)
[2016-02-12] MEDS: HEPARIN SOD 5000 UNIT/0.5 ML CARP SQ SCH ×2 (08:17→20:49)
[2016-02-12 08:53] LABS: BUN/CREATININE RATIO 15.8 (10-20); CALCIUM 7.8 mg/dl (8.5-10.1); POTASSIUM 4.7 mmol/L (3.5-5.1)
[2016-02-12 08:56] LABS: ALB/GLOB RATIO 0.6 (0.9-2)
--- NOTE | 2016-02-12 09:51 | Progress Note ---
Subjective Date of Service: Feb 12, 2016. Subjective underwent surgical repair of bowl obstruction, no gb pathology found, repeat blood cultures negative x 2, afebrile. remains on zosyn, tolerating will. wbc 9.3 Problem List Medical Problems: (1) PNA (pneumonia) Status: Acute (2) Sepsis Status: Acute Objective Vital Signs Date Time Temp Pulse Resp B/P Pulse Ox O2 Delivery O2 Flow Rate FiO2 02/12/16 08:00 36.4 77 18 149/77 96 02/12/16 04:00 Room Air 02/12/16 04:00 36.8 101 18 143/87 94 Room Air 02/11/16 23:59 Room Air 02/11/16 23:06 36.6 103 18 134/82 93 Room Air 02/11/16 20:00 Room Air 02/11/16 18:50 36.6 108 20 139/85 95 Room Air 02/11/16 16:22 96 Nasal Cannula 2.0 02/11/16 15:25 37.3 109 20 133/83 94 Room Air 02/11/16 12:09 96 Nasal Cannula 2.0 02/11/16 11:38 36.8 114 20 130/83 93 Room Air Laboratory Results Item Value Date Time Blood Culture - Preliminary Resulted 02/08/16 1524 Blood NO GROWTH TO DATE. Blood Culture - Preliminary Resulted 02/08/16 1515 Blood NO GROWTH TO DATE. Blood Culture - Final Complete 02/05/16 1140 Blood Micrococcus Species Blood Culture - Final Complete 02/05/16 1135 Blood NO GROWTH Last 24 Hours Test 02/11/16 19:15 02/12/16 05:33 Troponin I 0.060 ng/ml White Blood Count 9.38 K/uL Red Blood Count 3.73 M/uL Hemoglobin 11.4 g/dL Hematocrit 35.0 % Mean Corpuscular Volume 93.8 fL Mean Corpuscular Hemoglobin 30.6 pg Mean Corpuscular Hemoglobin Concent 32.6 g/dl Platelet Count 268 K/uL Mean Platelet Volume 9.8 fL Neutrophils (%) (Auto) 69.5 % Lymphocytes (%) (Auto) 9.9 % Monocytes (%) (Auto) 14.8 % Eosinophils (%) (Auto) 3.7 % Basophils (%) (Auto) 0.6 % Neutrophils # (Auto) 6.51 K/uL Lymphocytes # (Auto) 0.93 K/uL Monocytes # (Auto) 1.39 K/uL Eosinophils # (Auto) 0.35 K/uL Basophils # (Auto) 0.06 K/uL RDW Standard Deviation 53.9 fL RDW Coefficient of Variation 15.7 % Immature Granulocyte % (Auto) 1.5 % Immature Granulocyte # (Auto) 0.14 K/uL Sodium Level 151 mmol/L Potassium Level 4.7 mmol/L Chloride Level 118 mmol/L Carbon Dioxide Level 23 mmol/L Anion Gap 10.0 mmol/L Blood Urea Nitrogen 32 mg/dl Creatinine 2.00 mg/dl Est Creatinine Clear Calc Drug Dose 33.8 ml/min Estimated GFR () 34.0 Estimated GFR (Non- 29.3 BUN/Creatinine Ratio 15.8 Random Glucose 100 mg/dl Calcium Level 7.8 mg/dl Total Bilirubin 2.4 mg/dl Aspartate Amino Transf (AST/SGOT) 33 U/L Alanine Aminotransferase (ALT/SGPT) 35 U/L Alkaline Phosphatase 42 U/L Total Protein 5.9 gm/dl Albumin 2.1 gm/dl Globulin 3.8 gm/dl Albumin/Globulin Ratio 0.6 Assessment and Plan (1) Positive blood culture Assessment & Plan: likely skin irineo, repeats negative, afebrile. no gb disease found intra-op. will stop abx. No new ID recs, thank you.
[2016-02-12 12:00] VITALS: BP 152/85; PULSE 99; TEMP 36.6; O2SAT 97; O2SAT 99
[2016-02-12] MEDS ORDERED: NURSING VERBAL MED ORDER ONE (13:00)
[2016-02-12] MEDS: SODIUM CHLOR 0.45% + 20MEQ KCL 1,000 ML IV SCH (14:33)
--- NOTE | 2016-02-12 15:05 | Progress Note ---
Subjective Date of Service: Feb 12, 2016. Subjective Pt evaluation today including: conversation w/ patient, conversation w/ family , physical exam, chart review, lab review, review of studies, conversation w/ product management consultant, review of inpatient medication list Pt resting in bed comfortably Not passing gas, no BM at bedside Ambulating at this time Tolerating NG tube Problem List Medical Problems: (1) PNA (pneumonia) Status: Acute (2) Sepsis Status: Acute Review of Systems Constitutional: No chills, No fever Respiratory: No cough, No shortness of breath, No sputum, No wheezing Cardiac: No chest pain, No orthopnea Abdomen: No diarrhea, No nausea, No pain, No vomiting Musculoskeletal: No joint pain, No muscle pain Male : No dysuria, No urinary frequency Psychiatric: No anxiety, No depression symptoms Objective Vital Signs Date Time Temp Pulse Resp B/P Pulse Ox O2 Delivery O2 Flow Rate FiO2 02/12/16 12:00 36.6 99 17 152/85 99 Room Air 02/12/16 08:00 36.4 77 18 149/77 96 02/12/16 08:00 96 Room Air 02/12/16 04:00 Room Air 02/12/16 04:00 36.8 101 18 143/87 94 Room Air 02/11/16 23:59 Room Air 02/11/16 23:06 36.6 103 18 134/82 93 Room Air 02/11/16 20:00 Room Air 02/11/16 18:50 36.6 108 20 139/85 95 Room Air 02/11/16 16:22 96 Nasal Cannula 2.0 02/11/16 15:25 37.3 109 20 133/83 94 Room Air Physical Exam General Appearance: WD/WN, no apparent distress Neck: supple, no adenopathy Respiratory/Chest: chest non-tender, lungs clear Cardiovascular: no edema, no gallop Abdomen: non tender, + distended Neurologic/Psychiatric: alert, oriented x 3 Laboratory Results Last 24 Hours Test 02/11/16 19:15 02/12/16 05:33 Troponin I 0.060 ng/ml White Blood Count 9.38 K/uL Red Blood Count 3.73 M/uL Hemoglobin 11.4 g/dL Hematocrit 35.0 % Mean Corpuscular Volume 93.8 fL Mean Corpuscular Hemoglobin 30.6 pg Mean Corpuscular Hemoglobin Concent 32.6 g/dl Platelet Count 268 K/uL Mean Platelet Volume 9.8 fL Neutrophils (%) (Auto) 69.5 % Lymphocytes (%) (Auto) 9.9 % Monocytes (%) (Auto) 14.8 % Eosinophils (%) (Auto) 3.7 % Basophils (%) (Auto) 0.6 % Neutrophils # (Auto) 6.51 K/uL Lymphocytes # (Auto) 0.93 K/uL Monocytes # (Auto) 1.39 K/uL Eosinophils # (Auto) 0.35 K/uL Basophils # (Auto) 0.06 K/uL RDW Standard Deviation 53.9 fL RDW Coefficient of Variation 15.7 % Immature Granulocyte % (Auto) 1.5 % Immature Granulocyte # (Auto) 0.14 K/uL Sodium Level 151 mmol/L Potassium Level 4.7 mmol/L Chloride Level 118 mmol/L Carbon Dioxide Level 23 mmol/L Anion Gap 10.0 mmol/L Blood Urea Nitrogen 32 mg/dl Creatinine 2.00 mg/dl Est Creatinine Clear Calc Drug Dose 33.8 ml/min Estimated GFR () 34.0 Estimated GFR (Non- 29.3 BUN/Creatinine Ratio 15.8 Random Glucose 100 mg/dl Calcium Level 7.8 mg/dl Total Bilirubin 2.4 mg/dl Aspartate Amino Transf (AST/SGOT) 33 U/L Alanine Aminotransferase (ALT/SGPT) 35 U/L Alkaline Phosphatase 42 U/L Total Protein 5.9 gm/dl Albumin 2.1 gm/dl Globulin 3.8 gm/dl Albumin/Globulin Ratio 0.6 Assessment and Plan Mr. Leung is a 85 y/o male with PMHx of Ulcerative Colitis S/P Partial Colectomy with Ileostomy (50 years ago), S/P Appendectomy, BPH S/P TURP, GERD, and MVP who presents to the ED complaining of nausea and vomiting. Patient will be admitted to the telemetry floor for further evaluation and care. Nausea/Vomiting/Diarrhea: Gastroenteritis vs PNA vs Abdominal Etiology - Imaging -- CXR - mild cardiomegaly without evidence of lobar consolidation -- CT Abd/Pelvis without contrast - limited given no contrast - evidence of possible aspiration -- Echo - hyperdynamic; no regional wall motion; EF 65-70% -- C. Diff and Stool Cx - negative -- UA and Cx - uric acid -- BCx - staph species x 1, with repeat BC neg as well, antibx dced, appreciate ID recs - Zosyn and Vanc with pharmacy dosing - Continue IVFs - Replete electrolyte abnormalities - Duonebs QID and Q2H PRN - Zofran 4 mg IV Q6H PRN - Pain - Morphine 1-2 mg PRN - KUB and gallbladder US 02/08 peristent ileus and stones and sludge - Small bowel follow through determined likely mechanical obstruction, ex lap , adhesions noted, no ischemic bowel - Cont to monitor for ileus and pneumonitis - Consult GI - appreciate recommendations Abdominal Pain: - Pain has progressed from epigastric cramping on admission to LLQ "stabbing pain" to upper abdomen distention and diffuse pain - KUB - image and report reviewed - SBO vs Ileus - CT Abd/Pelvis with oral contrast - SBO; L lobe liver gas - portal venous gas; and stones/sludge in GB - Consult Gen Surg - appreciate further recommendations Acute Kidney Injury: Baseline Unknown - Last Cr 1.10 (Sep 2015): - NSS 100 mL/hr - has received bolus in ED, switched to 1/2 NSS as hypernatremia worsening - Continue monitoring - serial BMPs Elevated Troponin: NSTEMI vs Demand Ischemia - EKG - reviewed - Sinus Tach without T wave inversions or obvious ischemic changes - Trops increased but trending down - Cardiology following - agree with recommendations - D/C Heparin gtt - 48 hour coverage will be complete Hypotension: - Patient reports his BP is normally "very low" and has received NSS boluses in ED - Will hold Propranolol ER and Lisinopril at this time - will reinstitute when baseline vitals established Mechanical Fall: Prior to Admission 2/2 Intractable Vomiting - XR Thoracic and Cervical - image and report reviewed - degenerative changes no acute fractures GERD: - Protonix 40 mg daily as interchange for Omeprazole DVT Prophylaxis: - Heparin 5000 units Q12H Code Status: - FULL RESUSCITATION
[2016-02-12 16:03] VITALS: BP 152/85; PULSE 99; TEMP 36.6; O2SAT 99
[2016-02-12 16:27] VITALS: BP 153/82; PULSE 100; TEMP 36.9; O2SAT 94
--- NOTE | 2016-02-12 16:37 | SURGERY PROGRESS NOTE ---
DATE: 02/12/2016 SUBJECTIVE: I have evaluated the patient at the bedside in the presence of his and the nurse. He is resting comfortably in bed. The NG tube is in place and functioning. The patient states that his pain is improved and it is tolerable. He says the abdominal binder is not too tight. He has not noticed any air in the ileostomy bag. He denies fever or chills. PHYSICAL EXAMINATION: VITAL SIGNS: Temperature 36.6, blood pressure 152/85, heart rate 99, respirations 17, O2 saturation 97% on room air. CHEST: Clear. No rales or rhonchi. HEART: Regular rate and rhythm. ABDOMEN: Slightly distended, soft, bowel sounds are present. Ileostomy appliance has fluid but no air. The abdomen is soft, nontender. No rebound or guarding. The dressing has been removed and the wound is clean and dry without erythema, induration or purulent drainage. No ecchymoses. Dressing was replaced. The Miller catheter came out yesterday, he is voiding well, good urine output. EXTREMITIES: Calves are soft and supple, nontender. LABORATORY DATA: White count 9.8, hemoglobin 11.4, platelets 268, polys 69%. Sodium 151, potassium 4.7, chloride 118, creatinine 2.0, total bilirubin 2.4, decreasing from yesterday. Hepatic transaminases normalized. Albumin 2.1. Last troponin level 0.060. IMPRESSION: 1. Status post exploratory laparotomy, enterolysis. 2. Anticipated postoperative ileus beginning to improve with bowel sounds but no flatus in the ileostomy bag mild. 3. Mild renal deficiency worsening, maybe prerenal azotemia. 4. Hypernatremia developing. 5. Slightly elevated postoperative troponin level. PLAN: Change the IV fluids to half normal saline with potassium chloride, continue NG tube decompression, out of bed ambulating with assistance as much as possible, will give the patient a trial at clamping the NG tube if he tolerates this, then maybe we can pull the tube. I agree that the patient may be transferred to the [place] [facility] [place].
[2016-02-12 20:13] VITALS: BP 147/80; PULSE 99; TEMP 36.8; O2SAT 95
[2016-02-13] VITALS (9 sets, daily range): BP systolic 115–153; BP diastolic 74–89; PULSE 79–94; TEMP 36.2–36.9; O2SAT 92–98
[2016-02-13] MEDS: SODIUM CHLOR 0.45% + 20MEQ KCL 1,000 ML IV SCH ×2 (00:12→10:49)
[2016-02-13] MEDS: ONDANSETRON INJ 2 MG/ML 2 ML VIAL IV PRN ×4 (06:28→18:27)
[2016-02-13 07:32] LABS: HEMATOCRIT 30.9 % (42-52); MEAN CELL VOLUME 93.6 fL (80-100); MEAN CORPUSCULAR HEMOGLOBIN 29.1 pg (25-34); MEAN CORPUSCULAR HGB CONC 31.1 g/dl (32-36); MEAN PLATELET VOLUME 9.7 fL (7.4-10.4); PLATELET COUNT 287 K/uL (130-400); WHITE BLOOD COUNT 6.59 K/uL (4.8-10.8)
[2016-02-13 08:01] LABS: CREATININE 1.9 mg/dl (0.60-1.40)
[2016-02-13 08:26] LABS: BASO ABS # 0.06 K/uL (0-0.2); BASOPHIL % 0.9 % (0-2); COMPLETE YES; EOSINOPHIL % 3.5 %; LYMPH ABS # 0.34 K/uL (1.2-3.4); LYMPHOCYTE % 5.2 %; META ABS # 0.06 K/uL (0-0); METAMYELOCYTE % 0.9 %; MYELOCYTE % 0.9 %; NEUTROPHILS % 78.2 %
[2016-02-13 08:31] LABS: BUN/CREATININE RATIO 16.7 (10-20); CALCIUM 7.8 mg/dl (8.5-10.1)
[2016-02-13 08:39] LABS: ALB/GLOB RATIO 0.5 (0.9-2)
[2016-02-13] MEDS: HYDROmorphone INJ 1 MG/ML SYR IV PRN ×2 (10:43→20:15)
[2016-02-13] MEDS: PROPRANOLOL HCL 80 MG LA CAP PO SCH (10:46)
[2016-02-13] MEDS: CHOLECALCIFEROL 1000 INTER.UNIT TAB PO SCH (10:46)
[2016-02-13] MEDS: MAGNESIUM OXIDE 400 MG TAB PO SCH (10:46)
[2016-02-13] MEDS: MULTIVITAMIN TAB PO SCH (10:46)
[2016-02-13] MEDS: ASPIRIN 81 MG ECTAB PO SCH (10:47)
[2016-02-13] MEDS: LISINOPRIL 2.5 MG TAB PO SCH (10:47)
[2016-02-13] MEDS: PRIMIDONE 50 MG TAB PO SCH (10:48)
[2016-02-13] MEDS: IPRATROPIUM BROMIDE/ALBUTEROL respimat INH INH SCH ×4 (10:48→20:16)
[2016-02-13] MEDS: PANTOprazole SOD 40 MG TAB PO SCH (10:49)
[2016-02-13] MEDS: HEPARIN SOD 5000 UNIT/0.5 ML CARP SQ SCH ×2 (11:00→21:53)
--- NOTE | 2016-02-13 11:06 | Progress Note ---
Subjective Date of Service: Feb 13, 2016. Subjective Pt evaluation today including: conversation w/ patient, conversation w/ family , physical exam, review of studies, review of inpatient medication list Pt sitting upright in chair Denies any pain but states persistent nausea this AM despite vomiting No fevers or chills Ambulates with staff/ No BMs noted Problem List Medical Problems: (1) PNA (pneumonia) Status: Acute (2) Sepsis Status: Acute Review of Systems Constitutional: No chills, No fever Respiratory: No cough, No shortness of breath, No sputum, No wheezing Cardiac: No chest pain, No edema, No orthopnea Abdomen: + nausea, No diarrhea, No pain, No vomiting Musculoskeletal: No joint pain, No muscle pain Male : No dysuria, No urinary frequency Objective Vital Signs Date Time Temp Pulse Resp B/P Pulse Ox O2 Delivery O2 Flow Rate FiO2 02/13/16 08:00 36.7 81 20 147/84 96 Room Air 02/13/16 03:51 36.5 88 18 147/82 96 Room Air 02/13/16 00:08 36.7 94 17 153/81 96 Room Air 02/13/16 00:00 Room Air 02/12/16 20:13 36.8 99 18 147/80 95 Room Air 02/12/16 16:30 Room Air 02/12/16 16:27 36.9 100 18 153/82 94 Room Air 02/12/16 16:03 36.6 99 17 99 2.0 02/12/16 12:00 97 Room Air 02/12/16 12:00 36.6 99 17 152/85 99 Room Air Physical Exam General Appearance: WD/WN, no apparent distress Neck: supple, no adenopathy Respiratory/Chest: lungs clear, + decreased breath sounds Cardiovascular: no edema, no gallop Abdomen: non tender, soft Neurologic/Psychiatric: alert, normal mood/affect, oriented x 3 Laboratory Results Last 24 Hours Test 02/13/16 07:00 White Blood Count 6.59 K/uL Red Blood Count 3.30 M/uL Hemoglobin 9.6 g/dL Hematocrit 30.9 % Mean Corpuscular Volume 93.6 fL Mean Corpuscular Hemoglobin 29.1 pg Mean Corpuscular Hemoglobin Concent 31.1 g/dl Platelet Count 287 K/uL Mean Platelet Volume 9.7 fL RDW Standard Deviation 53.8 fL RDW Coefficient of Variation 15.7 % Neutrophils % (Manual) 78.2 % Lymphocytes % (Manual) 5.2 % Monocytes % (Manual) 10.4 % Eosinophils % (Manual) 3.5 % Basophils % (Manual) 0.9 % Metamyelocytes % 0.9 % Myelocytes % 0.9 % Neutrophils # (Manual) 5.15 K/uL Total Absolute Neutrophils 5.15 K/uL Lymphocytes # (Manual) 0.34 K/uL Total Absolute Lymphocytes 0.34 K/uL Monocytes # (Manual) 0.69 K/uL Eosinophils # (Manual) 0.23 K/uL Basophils # (Manual) 0.06 K/uL Metamyelocytes # 0.06 K/uL Myelocytes # 0.06 K/uL Red Blood Cell Morphology Unremarkable Sodium Level 152 mmol/L Potassium Level 4.0 mmol/L Chloride Level 120 mmol/L Carbon Dioxide Level 19 mmol/L Anion Gap 13.0 mmol/L Blood Urea Nitrogen 32 mg/dl Creatinine 1.90 mg/dl Est Creatinine Clear Calc Drug Dose 35.4 ml/min Estimated GFR () 36.2 Estimated GFR (Non- 31.2 BUN/Creatinine Ratio 16.7 Random Glucose 66 mg/dl Calcium Level 7.8 mg/dl Total Bilirubin 1.7 mg/dl Aspartate Amino Transf (AST/SGOT) 46 U/L Alanine Aminotransferase (ALT/SGPT) 37 U/L Alkaline Phosphatase 43 U/L Total Protein 5.9 gm/dl Albumin 2.0 gm/dl Globulin 3.9 gm/dl Albumin/Globulin Ratio 0.5 Assessment and Plan Mr. Leung is a 85 y/o male with PMHx of Ulcerative Colitis S/P Partial Colectomy with Ileostomy (50 years ago), S/P Appendectomy, BPH S/P TURP, GERD, and MVP who presents to the ED complaining of nausea and vomiting. Patient will be admitted to the telemetry floor for further evaluation and care. Nausea/Vomiting/Diarrhea: Gastroenteritis vs PNA vs Abdominal Etiology - Imaging -- CXR - mild cardiomegaly without evidence of lobar consolidation -- CT Abd/Pelvis without contrast - limited given no contrast - evidence of possible aspiration -- Echo - hyperdynamic; no regional wall motion; EF 65-70% -- C. Diff and Stool Cx - negative -- UA and Cx - uric acid -- BCx - staph species x 1, with repeat BC neg as well, antibx dced, appreciate ID recs - Zosyn and Vanc with pharmacy dosing - Continue IVFs - Replete electrolyte abnormalities - Duonebs QID and Q2H PRN - Zofran 4 mg IV Q6H PRN - Pain - Morphine 1-2 mg PRN - KUB and gallbladder US 02/08 peristent ileus and stones and sludge - Small bowel follow through determined likely mechanical obstruction, ex lap , adhesions noted, no ischemic bowel - Cont to monitor for ileus and pneumonitis, NGT pulled and started on liquid diet - Consult GI - appreciate recommendations Abdominal Pain: - Pain has progressed from epigastric cramping on admission to LLQ "stabbing pain" to upper abdomen distention and diffuse pain - KUB - image and report reviewed - SBO vs Ileus - CT Abd/Pelvis with oral contrast - SBO; L lobe liver gas - portal venous gas; and stones/sludge in GB, bilirubin trending down - Consult Gen Surg - appreciate further recommendations Acute Kidney Injury: Baseline Unknown - Last Cr 1.10 (Sep 2015): - NSS 100 mL/hr - has received bolus in ED, switched to 1/2 NSS as hypernatremia worsening - Continue monitoring - serial BMPs Elevated Troponin: NSTEMI vs Demand Ischemia - EKG - reviewed - Sinus Tach without T wave inversions or obvious ischemic changes - Trops increased but trending down - Cardiology following - agree with recommendations - D/C Heparin gtt - 48 hour coverage will be complete Hypotension: - Patient reports his BP is normally "very low" and has received NSS boluses in ED - Will hold Propranolol ER and Lisinopril at this time - will reinstitute when baseline vitals established Mechanical Fall: Prior to Admission 2/2 Intractable Vomiting - XR Thoracic and Cervical - image and report reviewed - degenerative changes no acute fractures GERD: - Protonix 40 mg daily as interchange for Omeprazole DVT Prophylaxis: - Heparin 5000 units Q12H Code Status: - FULL RESUSCITATION
[2016-02-13] MEDS ORDERED: PROMETHAZINE HCL INJ 12.5 MG in SODIUM CHLORIDE 0.9% 50ML 50 ML IV ONE (14:15)
[2016-02-13] MEDS ORDERED: NURSING VERBAL MED ORDER ONE (14:15)
[2016-02-13] MEDS ORDERED: FUROSEMIDE INJ 40 MG in SYRINGE 0 ML IV SCH (16:00)
--- NOTE | 2016-02-13 16:08 | DIAGNOSTIC IMAGING REPORT ---
ABDOMEN 2 VIEWS CLINICAL HISTORY: post op ileus pain COMPARISON STUDY: 02/09/2016 FINDINGS: Interval midline incision. Several mildly distended air-filled loops of small bowel in the central abdomen. Nonspecific air-fluid levels are present. IMPRESSION: Postoperative ileus versus partial small bowel obstructive change. Electronically signed by: Melvin Cota M.D. 02/13/2016 4:06 PM
[2016-02-13] MEDS: D5W AND 1/2NSS + 20MEQ KCL 1,000 ML IV SCH (16:21)
--- NOTE | 2016-02-13 17:12 | SURGERY PROGRESS NOTE ---
DATE: 02/13/2016 PROVIDER: Dr. Auguste, general surgery. SUBJECTIVE: I have evaluated the patient at the bedside in the presence of his . He is resting in bed. He states he is uncomfortable, meaning he has a vague abdominal discomfort but no real discrete pain. He feels bloated. He is burping. He did have a small amount of gas and fluid in his ileostomy bag today which was emptied by the nurse, but his abdomen feels distended and he looks distended. He has no chest pain, no shortness of breath. He has been out of bed ambulating. He has tolerated some clear liquids. PHYSICAL EXAMINATION: VITAL SIGNS: Temperature 36.2, blood pressure 149/83, heart rate 91, respirations 18, O2 saturation 97% on room air. CHEST: Good bilateral breath sounds in the lung harman, but in the bases he has fine crackles and rhonchi. HEART: Regular rate and rhythm. No murmur. Normal S1, S2, heart sounds. ABDOMEN: Distended, dull to percussion. Nontender to palpation. No guarding, no rebound. The wound is clean and dry, vinicius are intact. No erythema, induration or drainage. Ileostomy has some fluid. No flatus presently. EXTREMITIES: His calves are soft and supple. No ankle edema but bilateral arms and hands are swollen. LABORATORY DATA: White count 6.5, hemoglobin 9.6 down from 11.4, platelets 287. Neutrophils 78%. Chemistries: Sodium is climbing 152, potassium 4.0, chloride 120, carbon dioxide 19 slightly low, anion gap 13 slightly high, creatinine 1.9 stable, calcium 7.8 with an albumin of 2.0, total bilirubin 1.7 going down. IMPRESSION: 1. Status post exploratory laparotomy and enterolysis for small bowel obstruction. 2. Prolonged postoperative ileus. 3. Early pulmonary edema, mobilizing fluid into the intravascular space. 4. Hypernatremia, worsening. PLAN: The patient will be given 40 mg of IV Lasix now. He needs a flat and upright abdominal x-ray down in radiology. I have encouraged him to take ice chips. His IV fluids will be changed to D5 half normal saline with 20 mEq of KCl at 75 per hour. I have encouraged patient to avoid any liquids with salt in it and encouraged ice chips. His electrolytes, calcium, magnesium, phosphorus will be assessed tomorrow. If the ileus does not resolve soon, he may need to be started on peripheral parenteral nutrition. I have encouraged him to ambulate.
[2016-02-13] MEDS: MoRPHine SULFATE 4 MG/ML 1 ML CARP\\VIAL IV PRN (18:26)
[2016-02-13] MEDS: PROMETHAZINE HCL INJ 12.5 MG in SODIUM CHLORIDE 0.9% 50ML 50 ML IV PRN (20:07)
[2016-02-13] MEDS ORDERED: LIDOCAINE HCL 2% VISC SOLN 20 ML UDC MT ONE (20:45)
--- NOTE | 2016-02-13 21:50 | SURGERY PROGRESS NOTE ---
DATE: 02/13/2016 PROVIDER: Dr. Auguste, general surgery. SUBJECTIVE: I have been called by the nurse urgently at 8:30 p.m. regarding the patient's status. She says that he feels very uncomfortable, developed some abdominal pain, nausea and had projectile vomiting. The patient's is also in the room and very concerned. PHYSICAL EXAMINATION: VITAL SIGNS: Temperature 36.9, blood pressure 141/81, heart rate 82, respirations 19, O2 saturation 98% on room air. CHEST: Clear in the upper lung harman. The base is decreased breath sounds, but no rales or rhonchi; improved long auscultation from this morning and after the Lasix. HEART: Regular rate and rhythm. Normal S1, S2, heart sounds. ABDOMEN: Distended, dull to percussion, soft, nontender, no guarding, no rebound. Midline scar intact. Ileostomy fluid about 250 mL just emptied and measured. No flatus in the bag. Abdominal x-ray, postoperative ileus versus partial small bowel obstructive changes with several mildly distended air-filled loops of small bowel in the central abdomen; nonspecific air fluid levels are present. IMPRESSION: 1. Prolonged postoperative ileus. 2. Projectile vomiting, concerned that the patient may have re-aspirated. PLAN: We will need to place an NG tube to low intermittent suction, use viscous Xylocaine to avoid causing additional vomiting. The patient will get a repeat flat and upright abdominal x-ray in the morning. He will be placed on n.p.o., except for ice chips, as long as the NG tube is functioning. Repeat the labs in the morning. If this ileus persists, the patient will need a PICC line and TPN. MTDD
--- NOTE | 2016-02-13 23:04 | DIAGNOSTIC IMAGING REPORT ---
ABDOMEN 2 VIEWS CLINICAL HISTORY: ILEUS distention COMPARISON STUDY: No previous studies for comparison. FINDINGS: Several air-filled loops of bowel within the left central abdomen. Significant midline incision. Nasogastric tube within the gastric fundus. IMPRESSION: Mild nonobstructive postoperative ileus. Electronically signed by: Melvin Cota M.D. 02/13/2016 11:03 PM
[2016-02-14] MEDS: D5W AND 1/2NSS + 20MEQ KCL 1,000 ML IV SCH ×2 (01:58→09:18)
[2016-02-14 06:31] LABS: BASO % 0.3 %; BASO ABS # 0.02 K/uL (0-0.2); COMPLETE YES; EOS % 3.4 %; HEMATOCRIT 32.2 % (42-52); IG% 1.9 %; LYMPH % 9.6 %; LYMPH ABS # 0.71 K/uL (1.2-3.4); MEAN CELL VOLUME 93.3 fL (80-100); MEAN CORPUSCULAR HEMOGLOBIN 29.9 pg (25-34); MEAN PLATELET VOLUME 9.6 fL (7.4-10.4); NEUT % 72.8 %; PLATELET COUNT 297 K/uL (130-400); RED BLOOD COUNT 3.45 M/uL (4.7-6.1); WHITE BLOOD COUNT 7.42 K/uL (4.8-10.8)
[2016-02-14 07:04] LABS: CALCIUM 8.3 mg/dl (8.5-10.1); CREATININE 2.2 mg/dl (0.60-1.40); MAGNESIUM 2.4 mg/dl (1.8-2.4); POTASSIUM 3.5 mmol/L (3.5-5.1)
[2016-02-14 07:06] LABS: ALB/GLOB RATIO 0.6 (0.9-2); PHOSPHORUS 2.2 mg/dl (2.5-4.9)
[2016-02-14] MEDS: ONDANSETRON INJ 2 MG/ML 2 ML VIAL IV PRN ×2 (07:31→17:39)
[2016-02-14 07:41] VITALS: BP 138/78; PULSE 73; TEMP 36.6; O2SAT 97
[2016-02-14] MEDS: PROPRANOLOL HCL 80 MG LA CAP PO SCH (08:00)
[2016-02-14] MEDS: PRIMIDONE 50 MG TAB PO SCH (08:00)
[2016-02-14] MEDS: PANTOprazole SOD 40 MG TAB PO SCH (08:00)
[2016-02-14] MEDS: IPRATROPIUM BROMIDE/ALBUTEROL respimat INH INH SCH ×4 (08:00→20:00)
[2016-02-14] MEDS: ASPIRIN 81 MG ECTAB PO SCH (08:00)
[2016-02-14] MEDS: MULTIVITAMIN TAB PO SCH (08:00)
[2016-02-14] MEDS: CHOLECALCIFEROL 1000 INTER.UNIT TAB PO SCH (08:00)
[2016-02-14] MEDS: MAGNESIUM OXIDE 400 MG TAB PO SCH (08:00)
[2016-02-14] MEDS: LISINOPRIL 2.5 MG TAB PO SCH (08:00)
--- NOTE | 2016-02-14 08:52 | DIAGNOSTIC IMAGING REPORT ---
CHEST 2 VIEWS ROUTINE CLINICAL HISTORY: ASPIRATION PNEUMONITIS pneumonia COMPARISON STUDY: 02/10/2016 FINDINGS: A developing parenchymal infiltrate right base medially. Left lung is considered generally clear. There is minimal left basilar atelectasis. There is nasogastric tube within the gastric fundus. IMPRESSION: Slightly progressive parenchymal infiltrate right base. Electronically signed by: Melvin Cota M.D. 02/14/2016 8:50 AM
[2016-02-14] MEDS: HEPARIN SOD 5000 UNIT/0.5 ML CARP SQ SCH ×2 (09:17→21:00)
[2016-02-14] MEDS ORDERED: TPN/PPN CONSULT PHARMACY PRN (09:30)
--- NOTE | 2016-02-14 09:49 | SURGERY PROGRESS NOTE ---
DATE: 02/14/2016 PROVIDER: Dr. Auguste, general surgery. SUBJECTIVE: I have seen the patient at the bedside in the presence of Dr. Ramirez, the hospitalist. The patient is resting comfortably in bed. He feels much better now that the NG tube has been replaced, and he says that his abdomen is not as bloated. He has not been burping, but he denies flatus in his ileostomy bag. No fever or chills. No diaphoresis. PHYSICAL EXAMINATION: VITAL SIGNS: Temperature 36.6, blood pressure 138/78, heart rate 73, respirations 18, O2 saturation 97% on room air. CHEST: Clear with decreased breath sounds in the bases, some inspiratory rhonchi. HEART: Regular rate and rhythm. Normal S1, S2 heart sounds. No murmur. ABDOMEN: Moderately distended, dull to percussion. The abdomen is soft to palpation. No guarding, no rebound. Bowel sounds are present, but hypoactive. The wound is clean and dry. [place] intact. No erythema or induration. No drainage. Ileostomy bag has some fluid, but no air. EXTREMITIES: Bilateral calves are soft and supple, nontender to palpation. LABORATORIES: White count 7.4, hemoglobin 10.3, platelets 297, polys 72%. Electrolytes: Sodium 150, coming down, potassium 3.5, chloride 115, coming down, creatinine 2.2, slightly elevated, calcium 8.3 with albumin of 2.1, phosphorus 2.2, low, magnesium 2.4, normal. Total bilirubin 1.5, decreasing. IMPRESSION: 1. Prolonged ileus status post exploratory laparotomy enterolysis. 2. Protein calorie malnutrition. 3. Some electrolyte derangement. 4. History of aspiration pneumonia may be developing early infiltrate in the right base based on last night's chest x-ray. PLAN: The patient needs a PICC line placed today and started on total parenteral nutrition. Continue NG tube decompression. Correction of his electrolytes. If the ileus continues to persist, he may need a repeat CT scan of the abdomen and pelvis. I have discussed this with Dr. Ramirez. In addition, I will be coming off service 7:00 a.m. 02/15/2016, and I will sign out this patient to Dr. Arteaga and David ZIMMERMAN
--- NOTE | 2016-02-14 11:16 | Progress Note ---
Subjective Date of Service: Feb 14, 2016. Subjective Pt evaluation today including: conversation w/ patient, physical exam, chart review, lab review, review of studies, review of inpatient medication list Pt reports increased nausea Tolerating NGT at this time Dr Auguste at bedside No reports of worsening pain Problem List Medical Problems: (1) PNA (pneumonia) Status: Acute (2) Sepsis Status: Acute Review of Systems Constitutional: No chills, No fever Respiratory: No cough, No sputum Abdomen: + nausea, No constipation, No diarrhea, No pain, No vomiting Musculoskeletal: No joint pain, No muscle pain Male : No dysuria, No urinary frequency Neurologic: No paralysis, No weakness Psychiatric: + depression symptoms, No anxiety Endo: No excessive thirst, No fatigue Objective Vital Signs Date Time Temp Pulse Resp B/P Pulse Ox O2 Delivery O2 Flow Rate FiO2 02/14/16 07:41 36.6 73 18 138/78 97 Room Air 02/14/16 07:30 Room Air 02/14/16 01:26 Room Air 02/13/16 23:10 36.3 79 20 115/79 92 Room Air 02/13/16 19:46 36.9 82 19 141/81 98 Room Air 02/13/16 16:30 Room Air 02/13/16 15:59 36.8 81 19 142/89 96 Room Air 02/13/16 15:14 36.2 91 18 149/83 97 Room Air 02/13/16 11:58 36.6 89 16 136/74 97 Room Air Physical Exam General Appearance: WD/WN, + mild distress Neck: supple, no adenopathy Cardiovascular: no edema, no gallop Abdomen: + distended, + tenderness Neurologic/Psychiatric: alert, oriented x 3 Laboratory Results Last 24 Hours Test 02/14/16 05:53 White Blood Count 7.42 K/uL Red Blood Count 3.45 M/uL Hemoglobin 10.3 g/dL Hematocrit 32.2 % Mean Corpuscular Volume 93.3 fL Mean Corpuscular Hemoglobin 29.9 pg Mean Corpuscular Hemoglobin Concent 32.0 g/dl Platelet Count 297 K/uL Mean Platelet Volume 9.6 fL Neutrophils (%) (Auto) 72.8 % Lymphocytes (%) (Auto) 9.6 % Monocytes (%) (Auto) 12.0 % Eosinophils (%) (Auto) 3.4 % Basophils (%) (Auto) 0.3 % Neutrophils # (Auto) 5.41 K/uL Lymphocytes # (Auto) 0.71 K/uL Monocytes # (Auto) 0.89 K/uL Eosinophils # (Auto) 0.25 K/uL Basophils # (Auto) 0.02 K/uL RDW Standard Deviation 53.2 fL RDW Coefficient of Variation 15.5 % Immature Granulocyte % (Auto) 1.9 % Immature Granulocyte # (Auto) 0.14 K/uL Sodium Level 150 mmol/L Potassium Level 3.5 mmol/L Chloride Level 115 mmol/L Carbon Dioxide Level 27 mmol/L Anion Gap 8.0 mmol/L Blood Urea Nitrogen 31 mg/dl Creatinine 2.20 mg/dl Est Creatinine Clear Calc Drug Dose 30.5 ml/min Estimated GFR () 30.3 Estimated GFR (Non- 26.2 BUN/Creatinine Ratio 14.0 Random Glucose 125 mg/dl Calcium Level 8.3 mg/dl Phosphorus Level 2.2 mg/dl Magnesium Level 2.4 mg/dl Total Bilirubin 1.5 mg/dl Aspartate Amino Transf (AST/SGOT) 53 U/L Alanine Aminotransferase (ALT/SGPT) 48 U/L Alkaline Phosphatase 62 U/L Total Protein 5.9 gm/dl Albumin 2.1 gm/dl Globulin 3.8 gm/dl Albumin/Globulin Ratio 0.6 Assessment and Plan Mr. Leung is a 85 y/o male with PMHx of Ulcerative Colitis S/P Partial Colectomy with Ileostomy (50 years ago), S/P Appendectomy, BPH S/P TURP, GERD, and MVP who presents to the ED complaining of nausea and vomiting. Patient will be admitted to the telemetry floor for further evaluation and care. Nausea/Vomiting/Diarrhea: Gastroenteritis vs PNA vs Abdominal Etiology - Imaging -- CXR - mild cardiomegaly without evidence of lobar consolidation -- CT Abd/Pelvis without contrast - limited given no contrast - evidence of possible aspiration -- Echo - hyperdynamic; no regional wall motion; EF 65-70% -- C. Diff and Stool Cx - negative -- UA and Cx - uric acid -- BCx - staph species x 1, with repeat BC neg as well, antibx dced, appreciate ID recs - Zosyn and Vanc with pharmacy dosing - Continue IVFs - Replete electrolyte abnormalities - Duonebs QID and Q2H PRN - Zofran 4 mg IV Q6H PRN - Pain - Morphine 1-2 mg PRN - KUB and gallbladder US 02/08 peristent ileus and stones and sludge - Small bowel follow through determined likely mechanical obstruction, ex lap , adhesions noted, no ischemic bowel - Cont to monitor for ileus and pneumonitis, NGT pulled and started on liquid diet, however pt reports worsening nausea, NGT reinserted 02/13 KUB repeated, persistent ileus, recs for PICC line and TPN until resolution of ileus Abdominal Pain: - Pain has progressed from epigastric cramping on admission to LLQ "stabbing pain" to upper abdomen distention and diffuse pain - KUB - image and report reviewed - SBO vs Ileus - CT Abd/Pelvis with oral contrast - SBO; L lobe liver gas - portal venous gas; and stones/sludge in GB, bilirubin trending down - Consult Gen Surg - appreciate further recommendations Acute Kidney Injury: Baseline Unknown - Last Cr 1.10 (Sep 2015): - NSS 100 mL/hr - has received bolus in ED, switched to 1/2 NSS as hypernatremia worsening - Continue monitoring - serial BMPs Elevated Troponin: NSTEMI vs Demand Ischemia - EKG - reviewed - Sinus Tach without T wave inversions or obvious ischemic changes - Trops increased but trending down - Cardiology following - agree with recommendations - D/C Heparin gtt - 48 hour coverage will be complete Hypotension: - Patient reports his BP is normally "very low" and has received NSS boluses in ED - Will hold Propranolol ER and Lisinopril at this time - will reinstitute when baseline vitals established Mechanical Fall: Prior to Admission 2/2 Intractable Vomiting - XR Thoracic and Cervical - image and report reviewed - degenerative changes no acute fractures GERD: - Protonix 40 mg daily as interchange for Omeprazole DVT Prophylaxis: - Heparin 5000 units Q12H Code Status: - FULL RESUSCITATION
[2016-02-14] MEDS ORDERED: DEXTROSE 10% 1,000 ML IV PRN (11:37)
[2016-02-14] MEDS: PROMETHAZINE HCL INJ 12.5 MG in SODIUM CHLORIDE 0.9% 50ML 50 ML IV PRN (11:49)
--- NOTE | 2016-02-14 11:59 | DIAGNOSTIC IMAGING REPORT ---
CHEST ONE VIEW PORTABLE HISTORY: PICC placement COMPARISON: Chest 02/05/2016. FINDINGS: Nasogastric tube terminates in the stomach. The right PICC terminates in the right atrium and should be pulled back by approximately 4 to 5 cm. The heart remains mildly enlarged. No pneumothorax. Densities within the right lung base persist. IMPRESSION: The right PICC terminates in the right atrium and should be pulled back by approximately 4 to 5 cm. Electronically signed by: Jonel Smith M.D. 02/14/2016 11:57 AM
[2016-02-14] MEDS ORDERED: SODIUM CHLORIDE 0.9% IV SCH (12:30)
[2016-02-14] MEDS ORDERED: POTASSIUM PHOSPHATE IV SCH (12:30)
--- NOTE | 2016-02-14 13:00 | DIAGNOSTIC IMAGING REPORT ---
CHEST ONE VIEW PORTABLE CLINICAL HISTORY: PICC adjustment tube position COMPARISON STUDY: 02/05/2016 FINDINGS: PICC catheter has been pulled back. It is now in the mid superior vena cava. Parenchymal density right base as well as all additional findings are unchanged. Nasogastric tube within the gastric fundus. IMPRESSION: PICC catheter has been pulled back several centimeters to the mid superior vena cava. Electronically signed by: Melvin Cota M.D. 02/14/2016 12:58 PM
--- NOTE | 2016-02-14 13:19 | Pharmacy Progress Note ---
Parenteral Nutrition Consult Date of Service Feb 14, 2016. Scope Pharmacy has been consulted to manage parenteral nutrition orders and order appropriate labs. As part of the Nutrition Support Team guidelines, pharmacy will work in conjunction with dietary when determining the patients caloric needs. Subjective The patient is a 85 year old male admitted on Feb 05, 2016 at 13:18 for Pna, Sepsis. Patient is to receive parenteral nutrition for prolonged ileus s/p ex lap. Pertinent PMH: remote hx colectomy Objective Height (Feet): 6 Height (Inches): 2.00 Weight (Kilograms): 100.700 Diet: NPO Vascular Access: PICC placed today Intake & Output (Last 72 Hr): 02/12/16 02/13/16 02/14/16 08:00 08:00 08:00 Intake Total 2810 ml 2613 ml 3018 ml Output Total 2500 ml 1975 ml 3500 ml Balance 310 ml 638 ml -482 ml Additional Fluid Losses/Gains: NG output Laboratory Data (Last 24 Hr): Test 02/14/16 05:53 Alanine Aminotransferase (ALT/SGPT) 48 U/L (12-78) Albumin 2.1 gm/dl (3.4-5.0) Alkaline Phosphatase 62 U/L (45-117) Aspartate Amino Transf (AST/SGOT) 53 U/L (15-37) Blood Urea Nitrogen 31 mg/dl (7-18) Calcium Level 8.3 mg/dl (8.5-10.1) Carbon Dioxide Level 27 mmol/L (21-32) Chloride Level 115 mmol/L (98-107) Creatinine 2.20 mg/dl (0.60-1.40) Magnesium Level 2.4 mg/dl (1.8-2.4) Phosphorus Level 2.2 mg/dl (2.5-4.9) Potassium Level 3.5 mmol/L (3.5-5.1) Random Glucose 125 mg/dl (70-99) Sodium Level 150 mmol/L (136-145) Total Bilirubin 1.5 mg/dl (0.2-1) Recent Pertinent Medications: KPhos 7 mmol IV x1 today prior to TPN Assessment * 85 yo M with prolonged ileus s/p ex lap 02/09. Minimal po intake x7 days. May be at risk for re-feeding * Would like to be slightly more aggressive with electrolytes 2nd some risk for refeeding, but since patient also has renal dysfunction will be more conservative. May need to replete electrolytes outside of TPN * Will be slightly less aggressive on dextrose than recommended by dietary 2nd above Plan For day 1 of PN administration, the following will be ordered: Macronutrients Amino acids 100 grams/day Dextrose 150 grams/day Micronutrients Potassium phosphate 15 mMol Potassium acetate 20 mEq Magnesium sulfate 4.06 mEq Calcium gluconate 4.65 mEq Multivitamins 10 mL Trace Elements 1 mL Total volume 1251 mL to be infused over 24 hrs will provide 910 kcal/day Labs to be ordered per PN order protocol Pharmacy will follow and adjust parenteral nutrition orders on a daily basis. Thank you.
[2016-02-14 15:11] VITALS: BP 139/80; PULSE 84; TEMP 36.6; O2SAT 95
[2016-02-14] MEDS ORDERED: CUSTOM CENTRAL PN 1 BAG IV SCH (16:00)
[2016-02-15] VITALS: BP 137/77; PULSE 77; TEMP 36.7; O2SAT 91
[2016-02-15] MEDS: MoRPHine SULFATE 4 MG/ML 1 ML CARP\\VIAL IV PRN (00:39)
[2016-02-15 05:32] LABS: BASO % 0.4 %; BASO ABS # 0.03 K/uL (0-0.2); COMPLETE YES; EOS % 2.7 %; HEMATOCRIT 31.7 % (42-52); IG% 1.4 %; LYMPH % 11.7 %; LYMPH ABS # 0.81 K/uL (1.2-3.4); MEAN CELL VOLUME 93.8 fL (80-100); MEAN CORPUSCULAR HGB CONC 30.9 g/dl (32-36); MEAN PLATELET VOLUME 9.8 fL (7.4-10.4); MONO % 13.7 %; NEUT % 70.1 %; PLATELET COUNT 286 K/uL (130-400); RED BLOOD COUNT 3.38 M/uL (4.7-6.1); WHITE BLOOD COUNT 6.91 K/uL (4.8-10.8)
[2016-02-15 05:59] LABS: BUN/CREATININE RATIO 15.5 (10-20); CALCIUM 8.2 mg/dl (8.5-10.1); CREATININE 2.1 mg/dl (0.60-1.40); MAGNESIUM 2.5 mg/dl (1.8-2.4); POTASSIUM 3.4 mmol/L (3.5-5.1)
[2016-02-15 06:14] LABS: ALB/GLOB RATIO 0.5 (0.9-2); PHOSPHORUS 3.3 mg/dl (2.5-4.9)
[2016-02-15] MEDS ORDERED: POTASSIUM CHLR 20 MEQ / WTR 20 MEQ in PREMIXED WATER 100 ML IV ONE (08:00)
[2016-02-15] MEDS: CHOLECALCIFEROL 1000 INTER.UNIT TAB PO SCH (08:00)
[2016-02-15] MEDS: ASPIRIN 81 MG ECTAB PO SCH (08:00)
[2016-02-15] MEDS: MULTIVITAMIN TAB PO SCH (08:00)
[2016-02-15] MEDS: PANTOprazole SOD 40 MG TAB PO SCH (08:00)
[2016-02-15] MEDS: PRIMIDONE 50 MG TAB PO SCH (08:00)
[2016-02-15] MEDS: MAGNESIUM OXIDE 400 MG TAB PO SCH (08:00)
[2016-02-15 08:36] VITALS: BP 175/84; PULSE 80; TEMP 36.4; O2SAT 94
[2016-02-15] MEDS: ONDANSETRON INJ 2 MG/ML 2 ML VIAL IV PRN ×3 (08:59→18:02)
[2016-02-15] MEDS: IPRATROPIUM BROMIDE/ALBUTEROL respimat INH INH SCH ×4 (09:02→21:15)
[2016-02-15] MEDS: PROPRANOLOL HCL 80 MG LA CAP PO SCH (09:06)
[2016-02-15] MEDS: LISINOPRIL 2.5 MG TAB PO SCH (09:06)
[2016-02-15 09:18] LABS: CRYPTOSPORIDIUM AG TC 37213 NOT DETECTED (NOT DETECTED); O&P GIARDIA AG NOT DETECTED (NOT DETECTED); O&P SOURCE OTHER-STOOL
[2016-02-15] MEDS: HEPARIN SOD 5000 UNIT/0.5 ML CARP SQ SCH ×2 (09:22→21:00)
--- NOTE | 2016-02-15 11:18 | Progress Note ---
Subjective Date of Service: Feb 15, 2016. Subjective Pt evaluation today including: conversation w/ patient, conversation w/ family , physical exam, chart review, lab review, review of studies, review of inpatient medication list Resting in bed Continued nausea Increased bilious output in NGT Abd pain unchanged from yesterday Problem List Medical Problems: (1) PNA (pneumonia) Status: Acute (2) Sepsis Status: Acute Review of Systems Constitutional: No chills, No fever Respiratory: No cough, No dyspnea on exertion, No shortness of breath, No sputum, No wheezing Cardiac: No chest pain, No orthopnea Abdomen: + nausea, + pain, No diarrhea, No vomiting Musculoskeletal: No joint pain, No muscle pain Male : No dysuria, No urinary frequency Objective Vital Signs Date Time Temp Pulse Resp B/P Pulse Ox O2 Delivery O2 Flow Rate FiO2 02/15/16 09:00 Room Air 02/15/16 08:36 36.4 80 20 175/84 94 Room Air 02/15/16 00:00 36.7 77 20 137/77 91 Room Air 02/15/16 00:00 Room Air 02/14/16 20:00 Room Air 02/14/16 15:11 36.6 84 18 139/80 95 Room Air Physical Exam General Appearance: WD/WN, + mild distress Neck: supple, no adenopathy Respiratory/Chest: lungs clear, normal breath sounds Cardiovascular: regular rate, rhythm, no edema Abdomen: non tender, soft Neurologic/Psychiatric: alert, oriented x 3, + depressed affect Laboratory Results Last 24 Hours Test 02/14/16 18:28 02/15/16 05:09 02/15/16 06:36 Bedside Glucose 115 mg/dl 110 mg/dl White Blood Count 6.91 K/uL Red Blood Count 3.38 M/uL Hemoglobin 9.8 g/dL Hematocrit 31.7 % Mean Corpuscular Volume 93.8 fL Mean Corpuscular Hemoglobin 29.0 pg Mean Corpuscular Hemoglobin Concent 30.9 g/dl Platelet Count 286 K/uL Mean Platelet Volume 9.8 fL Neutrophils (%) (Auto) 70.1 % Lymphocytes (%) (Auto) 11.7 % Monocytes (%) (Auto) 13.7 % Eosinophils (%) (Auto) 2.7 % Basophils (%) (Auto) 0.4 % Neutrophils # (Auto) 4.83 K/uL Lymphocytes # (Auto) 0.81 K/uL Monocytes # (Auto) 0.95 K/uL Eosinophils # (Auto) 0.19 K/uL Basophils # (Auto) 0.03 K/uL RDW Standard Deviation 52.8 fL RDW Coefficient of Variation 15.4 % Immature Granulocyte % (Auto) 1.4 % Immature Granulocyte # (Auto) 0.10 K/uL Sodium Level 151 mmol/L Potassium Level 3.4 mmol/L Chloride Level 114 mmol/L Carbon Dioxide Level 31 mmol/L Anion Gap 6.0 mmol/L Blood Urea Nitrogen 32 mg/dl Creatinine 2.10 mg/dl Est Creatinine Clear Calc Drug Dose 32.0 ml/min Estimated GFR () 32.1 Estimated GFR (Non- 27.7 BUN/Creatinine Ratio 15.5 Random Glucose 117 mg/dl Calcium Level 8.2 mg/dl Phosphorus Level 3.3 mg/dl Magnesium Level 2.5 mg/dl Total Bilirubin 0.9 mg/dl Aspartate Amino Transf (AST/SGOT) 45 U/L Alanine Aminotransferase (ALT/SGPT) 43 U/L Alkaline Phosphatase 66 U/L Total Protein 5.9 gm/dl Albumin 2.0 gm/dl Globulin 3.9 gm/dl Albumin/Globulin Ratio 0.5 Triglycerides Level 165 mg/dl Lipase 324 U/L Assessment and Plan Mr. Leung is a 85 y/o male with PMHx of Ulcerative Colitis S/P Partial Colectomy with Ileostomy (50 years ago), S/P Appendectomy, BPH S/P TURP, GERD, and MVP who presents to the ED complaining of nausea and vomiting. Patient was admitted to the telemetry floor for further evaluation and care. Nausea/Vomiting/Diarrhea: Gastroenteritis vs PNA vs Abdominal Etiology - Imaging -- CXR - mild cardiomegaly without evidence of lobar consolidation -- CT Abd/Pelvis without contrast - limited given no contrast - evidence of possible aspiration -- Echo - hyperdynamic; no regional wall motion; EF 65-70% -- C. Diff and Stool Cx - negative -- UA and Cx - uric acid -- BCx - staph species x 1, with repeat BC neg as well, antibx dced, appreciate ID recs - KUB and gallbladder US 02/08 persistent ileus and stones and sludge - Small bowel follow through determined likely mechanical obstruction, ex lap , adhesions noted, no ischemic bowel - NGT pulled and started on liquid diet, however pt reports worsening nausea, NGT reinserted 02/13 KUB repeated, persistent ileus, recs for PICC line and TPN until resolution of ileus - Will repeat CT abd/pelvis 02/14, cont NGT and tube feeds, await GI and further recs from surgery Abdominal Pain: - Pain has progressed from epigastric cramping on admission to LLQ "stabbing pain" to upper abdomen distention and diffuse pain - KUB - image and report reviewed - SBO vs Ileus - CT Abd/Pelvis with oral contrast - SBO; L lobe liver gas - portal venous gas; and stones/sludge in GB, bilirubin trending down - Consult Gen Surg - appreciate further recommendations, please see above Acute Kidney Injury: Baseline Unknown - Last Cr 1.10 (Sep 2015): - NSS 100 mL/hr - has received bolus in ED, switched to 1/2 NSS as hypernatremia worsening - Continue monitoring - serial BMPs, no worsening change Elevated Troponin: NSTEMI vs Demand Ischemia - EKG - reviewed - Sinus tach without T wave inversions or obvious ischemic changes - Trops increased but trending down - Cardiology following - agree with recommendations - D/C Heparin gtt - 48 hour coverage will be complete Hypotension: - Resolved - Patient reports his BP is normally "very low" and has received NSS boluses in ED - Restarted on Propranolol ER and Lisinopril Mechanical Fall: Prior to Admission 2/2 Intractable Vomiting - XR Thoracic and Cervical - image and report reviewed - degenerative changes no acute fractures GERD: - Protonix 40 mg daily as interchange for Omeprazole DVT Prophylaxis: - Heparin 5000 units Q12H Code Status: - FULL RESUSCITATION
--- NOTE | 2016-02-15 13:01 | DIAGNOSTIC IMAGING REPORT ---
ABDOMEN AND PELVIS CT WITH ORAL CONTRAST CT DOSE: 1152.28 mGycm HISTORY: Generalized abdominal pain. Nausea. Ileus. TECHNIQUE: Multiaxial CT images of the abdomen and pelvis were performed following the use of oral contrast. COMPARISON STUDY: Abdomen and pelvis CT 02/08/2016. FINDINGS: Small right pleural effusion has increased in size. Stable 5 mm nodule within the right middle lobe on image 4. Patchy bilateral lower lobe densities. This has progressed on the right. This could represent atelectasis or pneumonia. Nasogastric tube terminates in the stomach. Interval midline incision. No suspicious lytic or blastic osseous lesions. Cholelithiasis. The unenhanced liver, spleen, adrenal glands, and pancreas are unremarkable. Mild bilateral perinephric edema. Punctate right renal stone. No hydronephrosis. Stable 9 mm hypodense lesion within the upper pole the right kidney. This is incompletely characterized on this noncontrast study. Hyperdense material within the gallbladder consistent with sludge. Small diverticulum at the third portion of the duodenum. No retroperitoneal lymphadenopathy. Mild body wall edema. Surgical clips within the right inguinal region. Small bilateral fat-containing inguinal hernias. No bladder wall thickening. Small amount of pelvic free fluid has developed in the interval. 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 Mild fat stranding, trace fluid, and a small focus of gas in the anterior abdomen deep to the incision site. This favors residual postoperative change. This includes a 1.8 cm gas/fluid collection best seen on image 51. Distended contrast-filled loops of proximal small bowel. These measure up to 4 cm in diameter. There are decompressed loops of mid to distal small bowel. However, contrast extends throughout the small bowel to the ileostomy site. Therefore, these findings are suggestive of a proximal small bowel obstruction. The transition point is likely located on the left side of the abdomen. However no, there is a knuckle of small bowel at the opening of the right inguinal hernia. This is not significantly change. This does not appear to represent a transition point at this time. IMPRESSION: 1. Mildly distended loops of proximal small bowel with decompressed loops of mid to distal small bowel. However, contrast extends through all the small bowel loops into the ileostomy site. Therefore, this is consistent with a proximal partial small bowel obstruction at this time. 2. There is a knuckle of small bowel at the opening of the right inguinal hernia which remains unchanged. This does not clearly represent a transition point at this time. 3. Trace amount gas and fluid within the anterior omentum deep to the midline incision. This favors recent postoperative change. The dominant gas/fluid collection measures 2 cm. A small developing abscess could also have a similar appearance. If the patient's symptoms progress then consider repeat abdomen and pelvis CT in 1 week for further evaluation. 4. Cholelithiasis. 5. Nasogastric tube terminates in the stomach. 6. Slight increase in size in the small right pleural effusion and right basilar densities. This may represent atelectasis or pneumonia. 7. Stable 5 mm nodule within the right middle lobe. 8. Additional findings as described above. Electronically signed by: Jonel Smith M.D. 02/15/2016 12:59 PM
[2016-02-15 15:04] VITALS: BP 149/84; PULSE 78; TEMP 36.7; O2SAT 92
[2016-02-15] MEDS ORDERED: CUSTOM CENTRAL PN 1 BAG IV SCH (16:00)
[2016-02-16 00:36] VITALS: BP 146/80; PULSE 81; TEMP 36.7; O2SAT 90
[2016-02-16] MEDS: ONDANSETRON INJ 2 MG/ML 2 ML VIAL IV PRN ×3 (02:04→17:02)
--- NOTE | 2016-02-16 06:41 | Surgery Progress Note ---
Surgery Progress Note Date of Service Feb 16, 2016. Subjective Post OP Day: 6 + bowel movement, + diet (TPN), + flatus (small amount), + pain controlled, No complaints Objective Vital Signs: Date Time Temp Pulse Resp B/P Pulse Ox O2 Delivery O2 Flow Rate FiO2 02/16/16 00:36 36.7 81 18 146/80 90 Room Air 02/16/16 00:00 Room Air 02/15/16 20:00 Room Air 02/15/16 15:04 36.7 78 20 149/84 92 Room Air 02/15/16 09:00 Room Air 02/15/16 08:36 36.4 80 20 175/84 94 Room Air Physical Exam: nasogastric drainage (slowing) General Appearance: WD/WN, no apparent distress Head: normocephalic, atraumatic Neck: supple, trachea midline Respiratory/Chest: lungs clear Cardiovascular: regular rate, rhythm Abdomen: normal bowel sounds, soft, + guarding, + tenderness (mild), + pertinent finding (ileostomy working but not normal output yet) Incision(s): clean, dry, intact Extremities: non-tender, no pedal edema Laboratory Results: Results Past 24 Hours Test 02/16/16 00:30 02/16/16 06:05 Range/Units Bedside Glucose 119 106 70-99 mg/dl Diagnostic Interpretation: ABDOMEN AND PELVIS CT WITH ORAL CONTRAST CT DOSE: 1152.28 mGycm HISTORY: Generalized abdominal pain. Nausea. Ileus. TECHNIQUE: Multiaxial CT images of the abdomen and pelvis were performed following the use of oral contrast. COMPARISON STUDY: Abdomen and pelvis CT 02/08/2016. FINDINGS: Small right pleural effusion has increased in size. Stable 5 mm nodule within the right middle lobe on image 4. Patchy bilateral lower lobe densities. This has progressed on the right. This could represent atelectasis or pneumonia. Nasogastric tube terminates in the stomach. Interval midline incision. No suspicious lytic or blastic osseous lesions. Cholelithiasis. The unenhanced liver, spleen, adrenal glands, and pancreas are unremarkable. Mild bilateral perinephric edema. Punctate right renal stone. No hydronephrosis. Stable 9 mm hypodense lesion within the upper pole the right kidney. This is incompletely characterized on this noncontrast study. Hyperdense material within the gallbladder consistent with sludge. Small diverticulum at the third portion of the duodenum. No retroperitoneal lymphadenopathy. Mild body wall edema. Surgical clips within the right inguinal region. Small bilateral fat-containing inguinal hernias. No bladder wall thickening. Small amount of pelvic free fluid has developed in the interval. 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 Mild fat stranding, trace fluid, and a small focus of gas in the anterior abdomen deep to the incision site. This favors residual postoperative change. This includes a 1.8 cm gas/fluid collection best seen on image 51. Distended contrast-filled loops of proximal small bowel. These measure up to 4 cm in diameter. There are decompressed loops of mid to distal small bowel. However, contrast extends throughout the small bowel to the ileostomy site. Therefore, these findings are suggestive of a proximal small bowel obstruction. The transition point is likely located on the left side of the abdomen. However no, there is a knuckle of small bowel at the opening of the right inguinal hernia. This is not significantly change. This does not appear to represent a transition point at this time. IMPRESSION: 1. Mildly distended loops of proximal small bowel with decompressed loops of mid to distal small bowel. However, contrast extends through all the small bowel loops into the ileostomy site. Therefore, this is consistent with a proximal partial small bowel obstruction at this time. 2. There is a knuckle of small bowel at the opening of the right inguinal hernia which remains unchanged. This does not clearly represent a transition point at this time. 3. Trace amount gas and fluid within the anterior omentum deep to the midline incision. This favors recent postoperative change. The dominant gas/fluid collection measures 2 cm. A small developing abscess could also have a similar appearance. If the patient's symptoms progress then consider repeat abdomen and pelvis CT in 1 week for further evaluation. 4. Cholelithiasis. 5. Nasogastric tube terminates in the stomach. 6. Slight increase in size in the small right pleural effusion and right basilar densities. This may represent atelectasis or pneumonia. 7. Stable 5 mm nodule within the right middle lobe. 8. Additional findings as described above Assessment & Plan s/p ex lap for internal hernia -con't ng for today -CT with contrast through SB slowly -TPN -ambulate
[2016-02-16 07:34] VITALS: BP 150/81; PULSE 76; TEMP 36.6; O2SAT 91
[2016-02-16] MEDS: MULTIVITAMIN TAB PO SCH (09:08)
[2016-02-16] MEDS: CHOLECALCIFEROL 1000 INTER.UNIT TAB PO SCH (09:09)
[2016-02-16] MEDS: MAGNESIUM OXIDE 400 MG TAB PO SCH (09:09)
[2016-02-16] MEDS: PROPRANOLOL HCL 80 MG LA CAP PO SCH (09:11)
[2016-02-16] MEDS: ASPIRIN 81 MG ECTAB PO SCH (09:11)
[2016-02-16] MEDS: PRIMIDONE 50 MG TAB PO SCH (09:11)
[2016-02-16] MEDS: LISINOPRIL 2.5 MG TAB PO SCH (09:11)
[2016-02-16] MEDS: PANTOprazole SOD 40 MG TAB PO SCH (09:12)
[2016-02-16] MEDS: IPRATROPIUM BROMIDE/ALBUTEROL respimat INH INH SCH ×4 (09:13→21:08)
[2016-02-16] MEDS: HEPARIN SOD 5000 UNIT/0.5 ML CARP SQ SCH ×2 (09:15→21:00)
[2016-02-16 09:32] LABS: BUN/CREATININE RATIO 22.7 (10-20); CALCIUM 8.4 mg/dl (8.5-10.1); POTASSIUM 3.4 mmol/L (3.5-5.1)
--- NOTE | 2016-02-16 15:26 | Progress Note ---
Subjective Subjective Date of Service: Feb 16, 2016. Pt evaluation today including: conversation w/ patient, physical exam, chart review, review of studies, review of inpatient medication list Problem List Medical Problems: (1) PNA (pneumonia) Status: Acute (2) Sepsis Status: Acute Review of Systems Constitutional: No fever, No weight loss ENT: No hearing loss Respiratory: No cough Cardiac: No chest pain Abdomen: No pain Musculoskeletal: No joint pain Male : No dysuria Neurologic: No memory loss Psychiatric: No depression symptoms Endo: No fatigue Physical Exam Vital Signs Vital Signs Past 24 Hours: Date Time Temp Pulse Resp B/P Pulse Ox O2 Delivery O2 Flow Rate FiO2 02/16/16 08:30 Room Air 02/16/16 07:34 36.6 76 20 150/81 91 Room Air 02/16/16 00:36 36.7 81 18 146/80 90 Room Air 02/16/16 00:00 Room Air 02/15/16 20:00 Room Air Physical Exam: General Appearance: WD/WN, no apparent distress Eyes: bilateral eyes normal inspection ENT: hearing grossly normal, pharynx normal Neck: supple, no JVD Respiratory/Chest: chest non-tender, normal breath sounds Cardiovascular: regular rate, rhythm, no gallop Abdomen: normal bowel sounds, + pertinent finding (stoma in place) Extremities: normal range of motion, normal inspection Neurologic/Psychiatric: alert Skin: normal color Medications Medications: Current Inpatient Medications Medications (Trade) Dose Ordered Sig/Karen Route Start Time Stop Time Status Last Admin Dose Admin Acetaminophen (Tylenol Tab) 650 mg Q4H PRN PO 02/05/16 13:15 03/06/16 13:14 02/07/16 23:13 650 MG Al Hydrox/Mg Hydrox/Simethicone (Maalox Max Susp) 15 ml Q4H PRN PO 02/05/16 13:15 03/06/16 13:14 02/13/16 20:08 15 ML Magnesium Hydroxide (Milk Of Magnesia Susp) 30 ml Q12H PRN PO 02/05/16 13:15 03/06/16 13:14 Nitroglycerin (Nitrostat Tab) 0.4 mg UD PRN SL 02/05/16 13:15 03/06/16 13:14 Polyethylene (Miralax Powder Packet) 17 gm DAILY PRN PO 02/05/16 13:15 03/06/16 13:14 Aspirin (Ecotrin Tab) 81 mg DAILY PO 02/06/16 09:00 03/07/16 08:59 02/16/16 09:11 81 MG Cholecalciferol (Vitamin D Tab) 1,000 inter.unit DAILY PO 02/06/16 09:00 03/07/16 08:59 02/13/16 10:46 1,000 INTER.UNIT Magnesium Oxide (Mag-Ox Tab) 400 mg DAILY PO 02/06/16 09:00 03/07/16 08:59 02/13/16 10:46 400 MG Multivitamins (Multivitamin Tab) 1 tab DAILY PO 02/06/16 09:00 03/07/16 08:59 02/13/16 10:46 1 TAB Primidone (Mysoline Tab) 50 mg DAILY PO 02/06/16 09:00 03/07/16 08:59 02/16/16 09:11 50 MG Pantoprazole Sodium (Protonix Tab) 40 mg QAM PO 02/06/16 09:00 03/07/16 08:59 02/16/16 09:12 40 MG Oxycodone/ Acetaminophen (Percocet 5-325MG Tab) 1 tab Q6H PRN PO 02/06/16 14:15 02/20/16 14:14 Heparin Sodium (Porcine) (Heparin Sq 5000 Unit/0.5ml) 5,000 unit Q12 SQ 02/08/16 09:00 03/09/16 08:59 02/16/16 09:15 5,000 UNIT Albuterol/ Ipratropium (Combivent Respimat Inh) 1 puffs QID INH 02/09/16 21:00 03/10/16 20:59 02/16/16 09:13 1 PUFFS Albuterol/ Ipratropium (Duoneb) 3 ml Q2H PRN INH 02/09/16 16:15 03/06/16 15:59 Morphine Sulfate (MoRPHine SULFATE INJ) 4 mg Q3H PRN IV 02/10/16 19:45 02/24/16 19:44 02/15/16 00:39 4 MG Hydromorphone HCl (Dilaudid Inj) 0.5 mg Q3H PRN IV 02/10/16 19:45 02/24/16 19:44 02/13/16 20:15 0.5 MG Ondansetron HCl (Zofran Inj) 4 mg Q4H PRN IV 02/10/16 23:00 03/11/16 22:59 02/16/16 09:54 4 MG Lisinopril (Zestril Tab) 2.5 mg DAILY PO 02/13/16 08:00 03/14/16 08:59 02/16/16 09:11 2.5 MG Propranolol HCl 80 mg 80 mg DAILY PO 02/13/16 08:00 03/14/16 08:59 02/16/16 09:11 80 MG Promethazine HCl/ Sodium Chloride (Phenergan Inj/ Nss 50ml) 50.5 ml @ 202 mls/hr Q6H PRN IV 02/13/16 14:15 03/14/16 14:14 02/14/16 11:49 202 MLS/HR Miscellaneous Information 1 ea 1 ea UD PRN N/A 02/14/16 09:30 03/15/16 09:29 Dextrose (D10w) 1,000 ml @ 0 mls/hr Q0M PRN IV 02/14/16 11:37 03/15/16 11:36 Heparin Sodium (Porcine) 5 ml 5 ml PRN PRN FLUSH 02/14/16 12:45 03/15/16 12:44 02/16/16 09:54 5 ML Nutrition (Parenteral) 0 ml @ 0 mls/hr TODAY@1600 IV 02/15/16 16:00 02/16/16 15:59 02/15/16 15:57 0 MLS/HR Nutrition (Parenteral) (Custom Central Pn) 0 ml @ 0 mls/hr TODAY@1600 IV 02/16/16 16:00 02/17/16 15:59 Laboratory Data Labs: Last 24 Hours Test 02/16/16 00:30 02/16/16 06:05 02/16/16 08:57 02/16/16 12:29 Bedside Glucose 119 mg/dl 106 mg/dl 122 mg/dl Sodium Level 149 mmol/L Potassium Level 3.4 mmol/L Chloride Level 110 mmol/L Carbon Dioxide Level 31 mmol/L Anion Gap 8.0 mmol/L Blood Urea Nitrogen 45 mg/dl Creatinine 2.00 mg/dl Est Creatinine Clear Calc Drug Dose 33.6 ml/min Estimated GFR () 34.0 Estimated GFR (Non- 29.3 BUN/Creatinine Ratio 22.7 Random Glucose 125 mg/dl Calcium Level 8.4 mg/dl Assessment and Plan Mr. Leung is a 85 y/o male with PMHx of Ulcerative Colitis S/P Partial Colectomy with Ileostomy (50 years ago), S/P Appendectomy, BPH S/P TURP, GERD, and MVP who presents to the ED complaining of nausea and vomiting. Patient was admitted to the telemetry floor for further evaluation and care. Nausea/Vomiting/Diarrhea: Gastroenteritis vs PNA vs Abdominal Etiology CT abd 02/14: Mildly distended loops of proximal small bowel with decompressed loops of mid to distal small bowel BCx - staph species x 1, with repeat BC neg as well, antibx dced, appreciate ID recs KUB and gallbladder US 02/08 persistent ileus and stones and sludge Small bowel follow through determined likely mechanical obstruction, ex lap , adhesions noted, no ischemic bowel NGT pulled and started on liquid diet, however pt reports worsening nausea, NGT reinserted 02/13 KUB repeated, persistent ileus, recs for PICC line and TPN until resolution of ileus cont NGT and tube feeds, await GI and further recs from surgery Abdominal Pain: Ileus vs SBO KUB - image and report reviewed - SBO vs Ileus CT Abd/Pelvis with oral contrast - SBO; L lobe liver gas - portal venous gas; and stones/sludge in GB, bilirubin trending down Consult Gen Surg - appreciate further recommendations Acute Kidney Injury: Baseline Unknown - Last Cr 1.10 (Sep 2015): NSS 100 mL/hr - has received bolus in ED, switched to 1/2 NSS as hypernatremia worsening Continue monitoring - serial BMPs, no worsening change Elevated Troponin: NSTEMI vs Demand Ischemia EKG - reviewed - Sinus tach without T wave inversions or obvious ischemic changes Trops increased but trending down Cardiology following - agree with recommendations D/C Heparin gtt - 48 hour coverage was completed Hypotension: Resolved Patient reports his BP is normally "very low" and has received NSS boluses in ED Restarted on Propranolol ER and Lisinopril Mechanical Fall: Prior to Admission 2/2 Intractable Vomiting XR Thoracic and Cervical - image and report reviewed - degenerative changes no acute fractures GERD: Protonix 40 mg daily as interchange for Omeprazole DVT Prophylaxis: Heparin sq 5000 units Q12H Code Status: FULL RESUSCITATION
[2016-02-16 15:31] VITALS: BP 137/75; PULSE 80; TEMP 36.9; O2SAT 95
[2016-02-16] MEDS ORDERED: CUSTOM CENTRAL PN 1 BAG IV SCH (16:00)
[2016-02-16] MEDS: POTASSIUM CHLR 10 MEQ / WTR 10 MEQ in PREMIXED WATER 100 ML IV SCH ×2 (16:32→17:39)
[2016-02-17 00:12] VITALS: BP 151/83; PULSE 81; TEMP 36.7; O2SAT 91
[2016-02-17] MEDS: ONDANSETRON INJ 2 MG/ML 2 ML VIAL IV PRN ×2 (03:05→17:01)
[2016-02-17 08:09] VITALS: BP 158/81; PULSE 78; TEMP 36.7; O2SAT 94
--- NOTE | 2016-02-17 08:50 | Surgery Progress Note ---
Surgery Progress Note Date of Service Feb 17, 2016. Subjective Post OP Day: 7 + bowel movement, + feeling well, + flatus, + pain controlled, No nausea, No vomiting Objective Vital Signs: Date Time Temp Pulse Resp B/P Pulse Ox O2 Delivery O2 Flow Rate FiO2 02/17/16 08:09 36.7 78 20 158/81 94 02/17/16 00:12 36.7 81 18 151/83 91 Room Air 02/17/16 00:00 Room Air 02/16/16 20:00 Room Air 02/16/16 16:20 Room Air 02/16/16 15:31 36.9 80 18 137/75 95 Room Air Physical Exam: nasogastric drainage (slowing) General Appearance: WD/WN, no apparent distress Head: normocephalic, atraumatic Neck: supple, trachea midline Respiratory/Chest: lungs clear Cardiovascular: regular rate, rhythm Abdomen: normal bowel sounds, soft, + distended (mild), + pertinent finding ( working ileostomy) Incision(s): clean, dry, intact Extremities: non-tender, no pedal edema Laboratory Results: Results Past 24 Hours Test 02/16/16 08:57 02/16/16 12:29 02/17/16 06:39 02/17/16 08:00 Range/Units Sodium Level 149 136-145 mmol/L Potassium Level 3.4 3.5-5.1 mmol/L Chloride Level 110 98-107 mmol/L Carbon Dioxide Level 31 21-32 mmol/L Anion Gap 8.0 3-11 mmol/L Blood Urea Nitrogen 45 7-18 mg/dl Creatinine 2.00 0.60-1.40 mg/dl Est Creatinine Clear Calc Drug Dose 33.6 ml/min Estimated GFR () 34.0 Estimated GFR (Non- 29.3 BUN/Creatinine Ratio 22.7 10-20 Random Glucose 125 70-99 mg/dl Calcium Level 8.4 8.5-10.1 mg/dl Bedside Glucose 122 141 70-99 mg/dl Assessment & Plan s/p ex lap for internal hernia -clamp ng for 8 hours if no N/V then remove -ice chips and meds po -CT with contrast through SB slowly -TPN -ambulate
[2016-02-17 09:05] LABS: HEMATOCRIT 33.2 % (42-52); MEAN CELL VOLUME 92.7 fL (80-100); MEAN CORPUSCULAR HEMOGLOBIN 29.3 pg (25-34); MEAN CORPUSCULAR HGB CONC 31.6 g/dl (32-36); MEAN PLATELET VOLUME 10.1 fL (7.4-10.4); PLATELET COUNT 270 K/uL (130-400); RED BLOOD COUNT 3.58 M/uL (4.7-6.1); WHITE BLOOD COUNT 8.51 K/uL (4.8-10.8)
[2016-02-17] MEDS: CHOLECALCIFEROL 1000 INTER.UNIT TAB PO SCH (09:09)
[2016-02-17] MEDS: MULTIVITAMIN TAB PO SCH (09:09)
[2016-02-17] MEDS: PANTOprazole SOD 40 MG TAB PO SCH (09:09)
[2016-02-17] MEDS: MAGNESIUM OXIDE 400 MG TAB PO SCH (09:10)
[2016-02-17] MEDS: ASPIRIN 81 MG ECTAB PO SCH (09:11)
[2016-02-17] MEDS: IPRATROPIUM BROMIDE/ALBUTEROL respimat INH INH SCH ×4 (09:11→20:16)
[2016-02-17] MEDS: LISINOPRIL 2.5 MG TAB PO SCH (09:11)
[2016-02-17] MEDS: PRIMIDONE 50 MG TAB PO SCH (09:11)
[2016-02-17] MEDS: PROPRANOLOL HCL 80 MG LA CAP PO SCH (09:11)
[2016-02-17] MEDS: HEPARIN SOD 5000 UNIT/0.5 ML CARP SQ SCH ×2 (09:17→20:18)
[2016-02-17 09:25] LABS: BUN/CREATININE RATIO 26.4 (10-20); CALCIUM 8.5 mg/dl (8.5-10.1)
[2016-02-17 09:27] LABS: PHOSPHORUS 2.6 mg/dl (2.5-4.9)
[2016-02-17 09:37] LABS: BASO % 0.5 %; BASO ABS # 0.04 K/uL (0-0.2); COMPLETE YES; EOS % 2.1 %; IG% 1.1 %; LYMPH % 10.7 %; LYMPH ABS # 0.91 K/uL (1.2-3.4); MONO % 10.7 %; NEUT % 74.9 %
--- NOTE | 2016-02-17 13:18 | Progress Note ---
Subjective Subjective Date of Service: Feb 17, 2016. Pt evaluation today including: conversation w/ patient, conversation w/ family (), physical exam, chart review, review of studies, review of inpatient medication list Notes: NG clamped Problem List Medical Problems: (1) PNA (pneumonia) Status: Acute (2) Sepsis Status: Acute Review of Systems Constitutional: No fever ENT: No hearing loss Respiratory: No cough Abdomen: No pain Male : No dysuria Neurologic: No memory loss Psychiatric: No depression symptoms Endo: No fatigue Skin: No rash Physical Exam Vital Signs Vital Signs Past 24 Hours: Date Time Temp Pulse Resp B/P Pulse Ox O2 Delivery O2 Flow Rate FiO2 02/17/16 09:00 Room Air 02/17/16 08:09 36.7 78 20 158/81 94 02/17/16 00:12 36.7 81 18 151/83 91 Room Air 02/17/16 00:00 Room Air 02/16/16 20:00 Room Air 02/16/16 16:20 Room Air 02/16/16 15:31 36.9 80 18 137/75 95 Room Air Physical Exam: General Appearance: WD/WN, no apparent distress Eyes: bilateral eyes normal inspection ENT: + pertinent finding (NG tube) Neck: supple, no JVD Respiratory/Chest: lungs clear, no respiratory distress Cardiovascular: no edema, no JVD Abdomen: non tender, soft Extremities: normal range of motion, normal inspection Neurologic/Psychiatric: alert, oriented x 3 Skin: normal color, warm/dry Medications Medications: Current Inpatient Medications Medications (Trade) Dose Ordered Sig/Karen Route Start Time Stop Time Status Last Admin Dose Admin Acetaminophen (Tylenol Tab) 650 mg Q4H PRN PO 02/05/16 13:15 03/06/16 13:14 02/07/16 23:13 650 MG Al Hydrox/Mg Hydrox/Simethicone (Maalox Max Susp) 15 ml Q4H PRN PO 02/05/16 13:15 03/06/16 13:14 02/13/16 20:08 15 ML Magnesium Hydroxide (Milk Of Magnesia Susp) 30 ml Q12H PRN PO 02/05/16 13:15 03/06/16 13:14 Nitroglycerin (Nitrostat Tab) 0.4 mg UD PRN SL 02/05/16 13:15 03/06/16 13:14 Polyethylene (Miralax Powder Packet) 17 gm DAILY PRN PO 02/05/16 13:15 03/06/16 13:14 Aspirin (Ecotrin Tab) 81 mg DAILY PO 02/06/16 09:00 03/07/16 08:59 02/17/16 09:11 81 MG Cholecalciferol (Vitamin D Tab) 1,000 inter.unit DAILY PO 02/06/16 09:00 03/07/16 08:59 02/13/16 10:46 1,000 INTER.UNIT Magnesium Oxide (Mag-Ox Tab) 400 mg DAILY PO 02/06/16 09:00 03/07/16 08:59 02/13/16 10:46 400 MG Multivitamins (Multivitamin Tab) 1 tab DAILY PO 02/06/16 09:00 03/07/16 08:59 Future Hold 02/13/16 10:46 1 TAB Primidone (Mysoline Tab) 50 mg DAILY PO 02/06/16 09:00 03/07/16 08:59 02/17/16 09:11 50 MG Pantoprazole Sodium (Protonix Tab) 40 mg QAM PO 02/06/16 09:00 03/07/16 08:59 02/16/16 09:12 40 MG Oxycodone/ Acetaminophen (Percocet 5-325MG Tab) 1 tab Q6H PRN PO 02/06/16 14:15 02/20/16 14:14 Heparin Sodium (Porcine) (Heparin Sq 5000 Unit/0.5ml) 5,000 unit Q12 SQ 02/08/16 09:00 03/09/16 08:59 02/17/16 09:17 5,000 UNIT Albuterol/ Ipratropium (Combivent Respimat Inh) 1 puffs QID INH 02/09/16 21:00 03/10/16 20:59 02/17/16 12:57 1 PUFFS Albuterol/ Ipratropium (Duoneb) 3 ml Q2H PRN INH 02/09/16 16:15 03/06/16 15:59 Morphine Sulfate (MoRPHine SULFATE INJ) 4 mg Q3H PRN IV 02/10/16 19:45 02/24/16 19:44 02/15/16 00:39 4 MG Hydromorphone HCl (Dilaudid Inj) 0.5 mg Q3H PRN IV 02/10/16 19:45 02/24/16 19:44 02/13/16 20:15 0.5 MG Ondansetron HCl (Zofran Inj) 4 mg Q4H PRN IV 02/10/16 23:00 03/11/16 22:59 02/17/16 03:05 4 MG Lisinopril (Zestril Tab) 2.5 mg DAILY PO 02/13/16 08:00 03/14/16 08:59 02/17/16 09:11 2.5 MG Propranolol HCl 80 mg 80 mg DAILY PO 02/13/16 08:00 03/14/16 08:59 02/17/16 09:11 80 MG Promethazine HCl/ Sodium Chloride (Phenergan Inj/ Nss 50ml) 50.5 ml @ 202 mls/hr Q6H PRN IV 02/13/16 14:15 03/14/16 14:14 02/14/16 11:49 202 MLS/HR Miscellaneous Information 1 ea 1 ea UD PRN N/A 02/14/16 09:30 03/15/16 09:29 Dextrose (D10w) 1,000 ml @ 0 mls/hr Q0M PRN IV 02/14/16 11:37 03/15/16 11:36 Heparin Sodium (Porcine) 5 ml 5 ml PRN PRN FLUSH 02/14/16 12:45 03/15/16 12:44 02/16/16 09:54 5 ML Nutrition (Parenteral) 0 ml @ 0 mls/hr TODAY@1600 IV 02/16/16 16:00 02/17/16 15:59 02/16/16 15:26 0 MLS/HR Nutrition (Parenteral) (Custom Central Pn) 0 ml @ 0 mls/hr TODAY@1600 IV 02/17/16 16:00 02/18/16 15:59 Laboratory Data Labs: Last 24 Hours Test 02/17/16 06:39 02/17/16 08:43 02/17/16 11:32 Bedside Glucose 141 mg/dl 140 mg/dl White Blood Count 8.51 K/uL Red Blood Count 3.58 M/uL Hemoglobin 10.5 g/dL Hematocrit 33.2 % Mean Corpuscular Volume 92.7 fL Mean Corpuscular Hemoglobin 29.3 pg Mean Corpuscular Hemoglobin Concent 31.6 g/dl Platelet Count 270 K/uL Mean Platelet Volume 10.1 fL Neutrophils (%) (Auto) 74.9 % Lymphocytes (%) (Auto) 10.7 % Monocytes (%) (Auto) 10.7 % Eosinophils (%) (Auto) 2.1 % Basophils (%) (Auto) 0.5 % Neutrophils # (Auto) 6.38 K/uL Lymphocytes # (Auto) 0.91 K/uL Monocytes # (Auto) 0.91 K/uL Eosinophils # (Auto) 0.18 K/uL Basophils # (Auto) 0.04 K/uL RDW Standard Deviation 51.8 fL RDW Coefficient of Variation 15.1 % Immature Granulocyte % (Auto) 1.1 % Immature Granulocyte # (Auto) 0.09 K/uL Sodium Level 152 mmol/L Potassium Level 3.0 mmol/L Chloride Level 109 mmol/L Carbon Dioxide Level 34 mmol/L Anion Gap 9.0 mmol/L Blood Urea Nitrogen 53 mg/dl Creatinine 2.00 mg/dl Est Creatinine Clear Calc Drug Dose 33.6 ml/min Estimated GFR () 34.0 Estimated GFR (Non- 29.3 BUN/Creatinine Ratio 26.4 Random Glucose 112 mg/dl Calcium Level 8.5 mg/dl Phosphorus Level 2.6 mg/dl Magnesium Level 2.0 mg/dl Assessment and Plan Mr. Leung is a 85 y/o male with PMHx of Ulcerative Colitis S/P Partial Colectomy with Ileostomy (50 years ago), S/P Appendectomy, BPH S/P TURP, GERD, and MVP who presents to the ED complaining of nausea and vomiting. Patient was admitted to the telemetry floor for further evaluation and care. Nausea/Vomiting/Diarrhea: Gastroenteritis vs PNA vs Abdominal Etiology CT abd 02/14: Mildly distended loops of proximal small bowel with decompressed loops of mid to distal small bowel BCx - staph species x 1, with repeat BC neg as well, antibx dced, appreciate ID recs KUB and gallbladder US 02/08 persistent ileus and stones and sludge Small bowel follow through determined likely mechanical obstruction, ex lap , adhesions noted, no ischemic bowel NGT pulled and started on liquid diet, however pt reports worsening nausea, NGT reinserted 02/13 KUB repeated, persistent ileus, recs for PICC line and TPN until resolution of ileus NGT clamped, may be removed in 8 hours if no problems, await GI and further recs from surgery, cont NPO for today Abdominal Pain: Ileus vs SBO KUB - image and report reviewed - SBO vs Ileus CT Abd/Pelvis with oral contrast - SBO; L lobe liver gas - portal venous gas; and stones/sludge in GB, bilirubin trending down Consult Gen Surg - appreciate further recommendations Acute Kidney Injury: Baseline Unknown - Last Cr 1.10 (Sep 2015): NSS 100 mL/hr - has received bolus in ED, switched to 1/2 NSS as hypernatremia worsening Continue monitoring - serial BMPs, no worsening change Elevated Troponin: NSTEMI vs Demand Ischemia EKG - reviewed - Sinus tach without T wave inversions or obvious ischemic changes Trops increased but trending down Cardiology following - agree with recommendations D/C Heparin gtt - 48 hour coverage was completed Hypotension: Resolved Patient reports his BP is normally "very low" and has received NSS boluses in ED Restarted on Propranolol ER and Lisinopril Mechanical Fall: Prior to Admission 2/2 Intractable Vomiting XR Thoracic and Cervical - image and report reviewed - degenerative changes no acute fractures GERD: Protonix 40 mg daily as interchange for Omeprazole DVT Prophylaxis: Heparin sq 5000 units Q12H Code Status: FULL RESUSCITATION
[2016-02-17 15:24] VITALS: BP 153/82; PULSE 73; TEMP 36.5; O2SAT 93
[2016-02-17] MEDS ORDERED: CUSTOM CENTRAL PN 1 BAG IV SCH (16:00)
[2016-02-18 00:20] VITALS: BP 165/79; PULSE 83; TEMP 36.6; O2SAT 97
--- NOTE | 2016-02-18 06:39 | Surgery Progress Note ---
Surgery Progress Note Date of Service Feb 18, 2016. Subjective Post OP Day: 8 + bowel movement, + diet (npo), + feeling well, + flatus, No complaints, No nausea, No vomiting Objective Vital Signs: Date Time Temp Pulse Resp B/P Pulse Ox O2 Delivery O2 Flow Rate FiO2 02/18/16 00:20 36.6 83 18 165/79 97 02/18/16 00:00 Room Air 02/17/16 20:00 Room Air 02/17/16 15:30 Room Air 02/17/16 15:24 36.5 73 20 153/82 93 02/17/16 09:00 Room Air 02/17/16 08:09 36.7 78 20 158/81 94 Physical Exam: nasogastric drainage (removed last night) General Appearance: WD/WN, no apparent distress Head: normocephalic, atraumatic Neck: supple, trachea midline Respiratory/Chest: lungs clear Cardiovascular: regular rate, rhythm Abdomen: normal bowel sounds, non tender, non distended, soft, + pertinent finding (ostomy working well) Incision(s): clean, dry, intact Extremities: non-tender, no pedal edema Laboratory Results: Results Past 24 Hours Test 02/17/16 06:39 02/17/16 08:43 02/17/16 11:32 02/17/16 18:08 Range/Units Bedside Glucose 141 140 120 70-99 mg/dl White Blood Count 8.51 4.8-10.8 K/uL Red Blood Count 3.58 4.7-6.1 M/uL Hemoglobin 10.5 14.0-18.0 g/dL Hematocrit 33.2 42-52 % Mean Corpuscular Volume 92.7 80-100 fL Mean Corpuscular Hemoglobin 29.3 25-34 pg Mean Corpuscular Hemoglobin Concent 31.6 32-36 g/dl Platelet Count 270 130-400 K/uL Mean Platelet Volume 10.1 7.4-10.4 fL Neutrophils (%) (Auto) 74.9 % Lymphocytes (%) (Auto) 10.7 % Monocytes (%) (Auto) 10.7 % Eosinophils (%) (Auto) 2.1 % Basophils (%) (Auto) 0.5 % Neutrophils # (Auto) 6.38 1.4-6.5 K/uL Lymphocytes # (Auto) 0.91 1.2-3.4 K/uL Monocytes # (Auto) 0.91 0.11-0.59 K/uL Eosinophils # (Auto) 0.18 0-0.5 K/uL Basophils # (Auto) 0.04 0-0.2 K/uL RDW Standard Deviation 51.8 36.4-46.3 fL RDW Coefficient of Variation 15.1 11.5-14.5 % Immature Granulocyte % (Auto) 1.1 % Immature Granulocyte # (Auto) 0.09 0.00-0.02 K/uL Sodium Level 152 136-145 mmol/L Potassium Level 3.0 3.5-5.1 mmol/L Chloride Level 109 98-107 mmol/L Carbon Dioxide Level 34 21-32 mmol/L Anion Gap 9.0 3-11 mmol/L Blood Urea Nitrogen 53 7-18 mg/dl Creatinine 2.00 0.60-1.40 mg/dl Est Creatinine Clear Calc Drug Dose 33.6 ml/min Estimated GFR () 34.0 Estimated GFR (Non- 29.3 BUN/Creatinine Ratio 26.4 10-20 Random Glucose 112 70-99 mg/dl Calcium Level 8.5 8.5-10.1 mg/dl Phosphorus Level 2.6 2.5-4.9 mg/dl Magnesium Level 2.0 1.8-2.4 mg/dl Test 02/18/16 00:18 Range/Units Bedside Glucose 133 70-99 mg/dl Assessment & Plan s/p ex lap for internal hernia -ng out -clears -BUN/Cr still elvated -con't TPN -ambulate
[2016-02-18 07:48] VITALS: BP 176/80; PULSE 76; TEMP 36.7; O2SAT 100
[2016-02-18 08:09] LABS: BASO % 0.9 %; BASO ABS # 0.06 K/uL (0-0.2); COMPLETE YES; EOS % 2.6 %; HEMATOCRIT 31.2 % (42-52); IG% 1.3 %; LYMPH % 13.6 %; LYMPH ABS # 0.95 K/uL (1.2-3.4); MEAN CELL VOLUME 92.3 fL (80-100); MEAN CORPUSCULAR HGB CONC 31.4 g/dl (32-36); MEAN PLATELET VOLUME 10.2 fL (7.4-10.4); MONO % 11.5 %; NEUT % 70.1 %; PLATELET COUNT 270 K/uL (130-400); RED BLOOD COUNT 3.38 M/uL (4.7-6.1); WHITE BLOOD COUNT 6.98 K/uL (4.8-10.8)
[2016-02-18] MEDS: ONDANSETRON INJ 2 MG/ML 2 ML VIAL IV PRN ×4 (08:22→20:48)
[2016-02-18] MEDS: ASPIRIN 81 MG ECTAB PO SCH (08:23)
[2016-02-18] MEDS: IPRATROPIUM BROMIDE/ALBUTEROL respimat INH INH SCH ×4 (08:23→19:55)
[2016-02-18] MEDS: PANTOprazole SOD 40 MG TAB PO SCH (08:24)
[2016-02-18] MEDS: LISINOPRIL 2.5 MG TAB PO SCH (08:24)
[2016-02-18] MEDS: PRIMIDONE 50 MG TAB PO SCH (08:24)
[2016-02-18] MEDS: PROPRANOLOL HCL 80 MG LA CAP PO SCH (08:24)
[2016-02-18 08:38] LABS: BUN/CREATININE RATIO 30.7 (10-20); CALCIUM 8.6 mg/dl (8.5-10.1); CREATININE 1.8 mg/dl (0.60-1.40); MAGNESIUM 2.1 mg/dl (1.8-2.4)
[2016-02-18] MEDS: CHOLECALCIFEROL 1000 INTER.UNIT TAB PO SCH (08:38)
[2016-02-18] MEDS: HEPARIN SOD 5000 UNIT/0.5 ML CARP SQ SCH ×2 (08:38→20:59)
[2016-02-18] MEDS: MAGNESIUM OXIDE 400 MG TAB PO SCH (08:38)
[2016-02-18 08:39] LABS: PHOSPHORUS 2.3 mg/dl (2.5-4.9)
[2016-02-18 10:23] VITALS: BP 118/75
--- NOTE | 2016-02-18 14:22 | Progress Note ---
Subjective Subjective Date of Service: Feb 18, 2016. Pt evaluation today including: conversation w/ patient, physical exam, chart review, review of studies, review of inpatient medication list Notes: tolerated clear diet, moved BMs Problem List Medical Problems: (1) PNA (pneumonia) Status: Acute (2) Sepsis Status: Acute Review of Systems Constitutional: No fever ENT: No hearing loss Respiratory: No cough Cardiac: No chest pain Abdomen: No pain Male : No dysuria Neurologic: No memory loss Psychiatric: No depression symptoms Endo: No fatigue Physical Exam Vital Signs Vital Signs Past 24 Hours: Date Time Temp Pulse Resp B/P Pulse Ox O2 Delivery O2 Flow Rate FiO2 02/18/16 10:23 118/75 02/18/16 08:00 Room Air 02/18/16 07:48 36.7 76 18 176/80 100 02/18/16 00:20 36.6 83 18 165/79 97 02/18/16 00:00 Room Air 02/17/16 20:00 Room Air 02/17/16 15:30 Room Air 02/17/16 15:24 36.5 73 20 153/82 93 Physical Exam: General Appearance: WD/WN, no apparent distress Eyes: bilateral eyes normal inspection ENT: hearing grossly normal, pharynx normal Neck: supple, no JVD Respiratory/Chest: normal breath sounds, no respiratory distress Cardiovascular: no edema, no gallop Abdomen: normal bowel sounds, non tender, soft, no pulsatile mass, + pertinent finding (stoma in place, bag attached, has stool in it) Extremities: normal range of motion, no pedal edema Neurologic/Psychiatric: alert, oriented x 3 Skin: warm/dry Medications Medications: Current Inpatient Medications Medications (Trade) Dose Ordered Sig/Karen Route Start Time Stop Time Status Last Admin Dose Admin Acetaminophen (Tylenol Tab) 650 mg Q4H PRN PO 02/05/16 13:15 03/06/16 13:14 02/07/16 23:13 650 MG Al Hydrox/Mg Hydrox/Simethicone (Maalox Max Susp) 15 ml Q4H PRN PO 02/05/16 13:15 03/06/16 13:14 02/13/16 20:08 15 ML Magnesium Hydroxide (Milk Of Magnesia Susp) 30 ml Q12H PRN PO 02/05/16 13:15 03/06/16 13:14 Nitroglycerin (Nitrostat Tab) 0.4 mg UD PRN SL 02/05/16 13:15 03/06/16 13:14 Polyethylene (Miralax Powder Packet) 17 gm DAILY PRN PO 02/05/16 13:15 03/06/16 13:14 Aspirin (Ecotrin Tab) 81 mg DAILY PO 02/06/16 09:00 03/07/16 08:59 02/18/16 08:23 81 MG Cholecalciferol (Vitamin D Tab) 1,000 inter.unit DAILY PO 02/06/16 09:00 03/07/16 08:59 02/13/16 10:46 1,000 INTER.UNIT Magnesium Oxide (Mag-Ox Tab) 400 mg DAILY PO 02/06/16 09:00 03/07/16 08:59 02/13/16 10:46 400 MG Multivitamins (Multivitamin Tab) 1 tab DAILY PO 02/06/16 09:00 03/07/16 08:59 Future Hold 02/13/16 10:46 1 TAB Primidone (Mysoline Tab) 50 mg DAILY PO 02/06/16 09:00 03/07/16 08:59 02/18/16 08:24 50 MG Pantoprazole Sodium (Protonix Tab) 40 mg QAM PO 02/06/16 09:00 03/07/16 08:59 02/18/16 08:24 40 MG Oxycodone/ Acetaminophen (Percocet 5-325MG Tab) 1 tab Q6H PRN PO 02/06/16 14:15 02/20/16 14:14 Heparin Sodium (Porcine) (Heparin Sq 5000 Unit/0.5ml) 5,000 unit Q12 SQ 02/08/16 09:00 03/09/16 08:59 02/18/16 08:38 5,000 UNIT Albuterol/ Ipratropium (Combivent Respimat Inh) 1 puffs QID INH 02/09/16 21:00 03/10/16 20:59 02/18/16 12:28 1 PUFFS Albuterol/ Ipratropium (Duoneb) 3 ml Q2H PRN INH 02/09/16 16:15 03/06/16 15:59 Morphine Sulfate (MoRPHine SULFATE INJ) 4 mg Q3H PRN IV 02/10/16 19:45 02/24/16 19:44 02/15/16 00:39 4 MG Hydromorphone HCl (Dilaudid Inj) 0.5 mg Q3H PRN IV 02/10/16 19:45 02/24/16 19:44 02/13/16 20:15 0.5 MG Ondansetron HCl (Zofran Inj) 4 mg Q4H PRN IV 02/10/16 23:00 03/11/16 22:59 02/18/16 12:16 4 MG Lisinopril (Zestril Tab) 2.5 mg DAILY PO 02/13/16 08:00 03/14/16 08:59 02/18/16 08:24 2.5 MG Propranolol HCl 80 mg 80 mg DAILY PO 02/13/16 08:00 03/14/16 08:59 02/18/16 08:24 80 MG Promethazine HCl/ Sodium Chloride (Phenergan Inj/ Nss 50ml) 50.5 ml @ 202 mls/hr Q6H PRN IV 02/13/16 14:15 03/14/16 14:14 02/14/16 11:49 202 MLS/HR Miscellaneous Information 1 ea 1 ea UD PRN N/A 02/14/16 09:30 03/15/16 09:29 Dextrose (D10w) 1,000 ml @ 0 mls/hr Q0M PRN IV 02/14/16 11:37 03/15/16 11:36 Heparin Sodium (Porcine) 5 ml 5 ml PRN PRN FLUSH 02/14/16 12:45 03/15/16 12:44 02/18/16 12:17 5 ML Nutrition (Parenteral) 0 ml @ 0 mls/hr TODAY@1600 IV 02/17/16 16:00 02/18/16 15:59 02/17/16 16:03 0 MLS/HR Nutrition (Parenteral) (Custom Central Pn) 0 ml @ 0 mls/hr TODAY@1600 IV 02/18/16 16:00 02/19/16 15:59 Laboratory Data Labs: Last 24 Hours Test 02/17/16 18:08 02/18/16 00:18 02/18/16 07:50 02/18/16 12:27 Bedside Glucose 120 mg/dl 133 mg/dl 138 mg/dl White Blood Count 6.98 K/uL Red Blood Count 3.38 M/uL Hemoglobin 9.8 g/dL Hematocrit 31.2 % Mean Corpuscular Volume 92.3 fL Mean Corpuscular Hemoglobin 29.0 pg Mean Corpuscular Hemoglobin Concent 31.4 g/dl Platelet Count 270 K/uL Mean Platelet Volume 10.2 fL Neutrophils (%) (Auto) 70.1 % Lymphocytes (%) (Auto) 13.6 % Monocytes (%) (Auto) 11.5 % Eosinophils (%) (Auto) 2.6 % Basophils (%) (Auto) 0.9 % Neutrophils # (Auto) 4.90 K/uL Lymphocytes # (Auto) 0.95 K/uL Monocytes # (Auto) 0.80 K/uL Eosinophils # (Auto) 0.18 K/uL Basophils # (Auto) 0.06 K/uL RDW Standard Deviation 51.2 fL RDW Coefficient of Variation 15.1 % Immature Granulocyte % (Auto) 1.3 % Immature Granulocyte # (Auto) 0.09 K/uL Sodium Level 150 mmol/L Potassium Level 3.0 mmol/L Chloride Level 111 mmol/L Carbon Dioxide Level 31 mmol/L Anion Gap 8.0 mmol/L Blood Urea Nitrogen 55 mg/dl Creatinine 1.80 mg/dl Est Creatinine Clear Calc Drug Dose 37.3 ml/min Estimated GFR () 38.6 Estimated GFR (Non- 33.3 BUN/Creatinine Ratio 30.7 Random Glucose 146 mg/dl Calcium Level 8.6 mg/dl Phosphorus Level 2.3 mg/dl Magnesium Level 2.1 mg/dl Assessment and Plan Mr. Leung is a 85 y/o male with PMHx of Ulcerative Colitis S/P Partial Colectomy with Ileostomy (50 years ago), S/P Appendectomy, BPH S/P TURP, GERD, and MVP who presents to the ED complaining of nausea and vomiting. Patient was admitted to the telemetry floor for further evaluation and care. Nausea/Vomiting/Diarrhea: Gastroenteritis vs PNA vs Abdominal Etiology CT abd 02/14: Mildly distended loops of proximal small bowel with decompressed loops of mid to distal small bowel BCx - staph species x 1, with repeat BC neg as well, antibx dced, appreciate ID recs KUB and gallbladder US 02/08 persistent ileus and stones and sludge Small bowel follow through determined likely mechanical obstruction, ex lap , adhesions noted, no ischemic bowel NGT pulled and started on liquid diet, however pt reports worsening nausea, NGT reinserted 02/13 KUB repeated, persistent ileus, recs for PICC line and TPN until resolution of ileus NGT removed on 02/17/16, await GI and further recs from surgery, cont clears today , may advance to full liquid tomorrow if ok with surgery, maybe TPN could be d/ c if continues to tolerate diet in the next few days Abdominal Pain: Ileus vs SBO KUB - image and report reviewed - SBO vs Ileus CT Abd/Pelvis with oral contrast - SBO; L lobe liver gas - portal venous gas; and stones/sludge in GB, bilirubin trending down Consult Gen Surg - appreciate further recommendations Acute Kidney Injury: Baseline Unknown - Last Cr 1.10 (Sep 2015): NSS 100 mL/hr - has received bolus in ED, switched to 1/2 NSS as hypernatremia worsening Continue monitoring - serial BMPs, no worsening change Elevated Troponin: NSTEMI vs Demand Ischemia EKG - reviewed - Sinus tach without T wave inversions or obvious ischemic changes Trops increased but trending down Cardiology following - agree with recommendations D/C Heparin gtt - 48 hour coverage was completed Hypotension: Resolved Patient reports his BP is normally "very low" and has received NSS boluses in ED Restarted on Propranolol ER and Lisinopril Mechanical Fall: Prior to Admission 2/2 Intractable Vomiting XR Thoracic and Cervical - image and report reviewed - degenerative changes no acute fractures GERD: Protonix 40 mg daily as interchange for Omeprazole DVT Prophylaxis: Heparin sq 5000 units Q12H Code Status: FULL RESUSCITATION
[2016-02-18 14:41] VITALS: BP 145/84; PULSE 71; TEMP 36.6; O2SAT 100
[2016-02-18 15:30] VITALS: O2SAT 100
[2016-02-18] MEDS ORDERED: CUSTOM CENTRAL PN 1 BAG IV SCH (16:00)
[2016-02-18 23:12] VITALS: BP 134/80; PULSE 72; TEMP 36.5; O2SAT 95
--- NOTE | 2016-02-19 06:27 | SURGERY PROGRESS NOTE ---
DATE: 02/19/2016 HISTORY OF PRESENT ILLNESS: Dereje is 8 days postop exploratory lap, lysis of adhesion. He is resting comfortably in no acute distress. He states he feels better, although his abdomen is still moderately distended. He has had some output through the ileostomy. His abdomen as stated is distended. The incision looks fine. There is no cellulitis or drainage. His last vitals showed a temperature of 37.5, pulse 72, respirations 18, blood pressure 134/80, O2 sats 95 on room air. I\T\O; he is fairly balanced. LABORATORY DATA: Laboratory carrasco yesterday's hemoglobin was 9.8, white count 6.9. No differential was obtained. The potassium is 3.0 yesterday. The BUN is 55, creatinine 1.80. ASSESSMENT AND PLAN: He is continued on TPN. The patient has significant adhesions in the abdomen, a portion of it was adhered on the pelvic area but no true obstruction, but given this, I suspect it will take some time before he resolves this completely. I would continue him on hyperalimentation go slower oral intake.
[2016-02-19 06:56] VITALS: BP 142/71; PULSE 82; TEMP 36.8; O2SAT 94
[2016-02-19 08:15] LABS: BASO % 1.1 %; BASO ABS # 0.07 K/uL (0-0.2); EOS % 2.5 %; HEMATOCRIT 27.7 % (42-52); IG% 1.9 %; LYMPH % 17.1 %; MEAN CELL VOLUME 91.4 fL (80-100); MEAN CORPUSCULAR HGB CONC 31.8 g/dl (32-36); MEAN PLATELET VOLUME 10.1 fL (7.4-10.4); NEUT % 66.4 %; PLATELET COUNT 251 K/uL (130-400); RED BLOOD COUNT 3.03 M/uL (4.7-6.1); WHITE BLOOD COUNT 6.44 K/uL (4.8-10.8)
[2016-02-19 08:38] LABS: COMPLETE YES
[2016-02-19 08:43] LABS: CREATININE 1.8 mg/dl (0.60-1.40); MAGNESIUM 1.8 mg/dl (1.8-2.4); POTASSIUM 3.2 mmol/L (3.5-5.1)
[2016-02-19 08:44] LABS: PHOSPHORUS 2.5 mg/dl (2.5-4.9)
[2016-02-19] MEDS: ASPIRIN 81 MG ECTAB PO SCH (08:50)
[2016-02-19] MEDS: PRIMIDONE 50 MG TAB PO SCH (08:50)
[2016-02-19] MEDS: MAGNESIUM OXIDE 400 MG TAB PO SCH (08:50)
[2016-02-19] MEDS: LISINOPRIL 2.5 MG TAB PO SCH (08:50)
[2016-02-19] MEDS: PANTOprazole SOD 40 MG TAB PO SCH (08:50)
[2016-02-19] MEDS: PROPRANOLOL HCL 80 MG LA CAP PO SCH (08:51)
[2016-02-19] MEDS: IPRATROPIUM BROMIDE/ALBUTEROL respimat INH INH SCH ×4 (08:51→19:56)
[2016-02-19] MEDS: CHOLECALCIFEROL 1000 INTER.UNIT TAB PO SCH (08:51)
[2016-02-19] MEDS: HEPARIN SOD 5000 UNIT/0.5 ML CARP SQ SCH ×2 (08:57→20:04)
--- NOTE | 2016-02-19 10:08 | Hospitalist Progress Note ---
Hospitalist Progress Note Date of Service Feb 19, 2016. (Anabel Samuel PA-C) 02/19/16 agree with PA note (Rosalio Griffin MD) Subjective Pt evaluation today including: conversation w/ patient, conversation w/ family , physical exam, chart review, lab review, review of inpatient medication list Patient reports feeling well this morning. Denies any significant abdominal pain. Passing gas and stool through his ileostomy. Denies any nausea today. Tolerating his clear liquid diet. Additional Comments: 6 system review negative. Please see pertinent positives in the history of present illness section. (Anabel Samuel PA-C) Pt evaluation today including: conversation w/ patient, physical exam, chart review, lab review, review of studies, review of inpatient medication list Constitutional: No fever ENT: No hearing loss Respiratory: No cough Abdomen: No pain Musculoskeletal: No joint pain Male : No dysuria Neurologic: No memory loss Psychiatric: No depression symptoms Endo: No fatigue (Rosalio Griffin MD) Objective Vital Signs Date Time Temp Pulse Resp B/P Pulse Ox O2 Delivery O2 Flow Rate FiO2 02/19/16 06:56 36.8 82 16 142/71 94 Room Air 02/19/16 00:00 Room Air 02/18/16 23:12 36.5 72 18 134/80 95 Room Air 02/18/16 15:30 100 Room Air 02/18/16 14:41 36.6 71 20 145/84 100 02/18/16 10:23 118/75 (Anabel Samuel PA-C) Physical Exam General Appearance: no apparent distress Eyes: EOMI Neck: no JVD Respiratory/Chest: lungs clear Cardiovascular: regular rate, rhythm Abdomen: soft, + pertinent finding (bowel sounds present. Dressing dry. No significant tenderness noted. Gas present in ostomy. No stool.) Extremities: + pertinent finding (trace pitting edema in the lower extremities bilaterally) Neurologic/Psychiatric: no motor/sensory deficits, oriented x 3 Skin: warm/dry (Anabel Samuel PA-C) General Appearance: WD/WN, no apparent distress Eyes: normal inspection, EOMI ENT: hearing grossly normal, pharynx normal Neck: supple, no JVD Respiratory/Chest: lungs clear, no accessory muscle use Cardiovascular: no edema, no murmur Abdomen: normal bowel sounds, non tender, soft Extremities: normal range of motion, normal inspection Neurologic/Psychiatric: alert Skin: normal color, no rash (Rosalio Griffin MD) Laboratory Results 02/19/16 07:55 Red Blood Count 3.03, Mean Corpuscular Volume 91.4, Mean Corpuscular Hemoglobin 29.0, Mean Corpuscular Hemoglobin Concent 31.8, Mean Platelet Volume 10.1, Neutrophils (%) (Auto) 66.4, Lymphocytes (%) (Auto) 17.1, Monocytes (%) (Auto) 11.0, Eosinophils (%) (Auto) 2.5, Basophils (%) (Auto) 1.1, Neutrophils # (Auto ) 4.28, Lymphocytes # (Auto) 1.10, Monocytes # (Auto) 0.71, Eosinophils # (Auto ) 0.16, Basophils # (Auto) 0.07 02/19/16 07:55 Test 02/18/16 18:03 02/19/16 07:55 Bedside Glucose 131 mg/dl (70-99) White Blood Count 6.44 K/uL (4.8-10.8) Red Blood Count 3.03 M/uL (4.7-6.1) Hemoglobin 8.8 g/dL (14.0-18.0) Hematocrit 27.7 % (42-52) Mean Corpuscular Volume 91.4 fL (80-100) Mean Corpuscular Hemoglobin 29.0 pg (25-34) Mean Corpuscular Hemoglobin Concent 31.8 g/dl (32-36) Platelet Count 251 K/uL (130-400) Mean Platelet Volume 10.1 fL (7.4-10.4) Neutrophils (%) (Auto) 66.4 % Lymphocytes (%) (Auto) 17.1 % Monocytes (%) (Auto) 11.0 % Eosinophils (%) (Auto) 2.5 % Basophils (%) (Auto) 1.1 % Neutrophils # (Auto) 4.28 K/uL (1.4-6.5) Lymphocytes # (Auto) 1.10 K/uL (1.2-3.4) Monocytes # (Auto) 0.71 K/uL (0.11-0.59) Eosinophils # (Auto) 0.16 K/uL (0-0.5) Basophils # (Auto) 0.07 K/uL (0-0.2) RDW Standard Deviation 51.9 fL (36.4-46.3) RDW Coefficient of Variation 15.3 % (11.5-14.5) Immature Granulocyte % (Auto) 1.9 % Immature Granulocyte # (Auto) 0.12 K/uL (0.00-0.02) Red Blood Cell Morphology Unremarkable Anion Gap 9.0 mmol/L (3-11) Est Creatinine Clear Calc Drug Dose 36.6 ml/min Estimated GFR () 38.4 Estimated GFR (Non- 33.1 BUN/Creatinine Ratio 29.0 (10-20) Calcium Level 8.0 mg/dl (8.5-10.1) Phosphorus Level 2.5 mg/dl (2.5-4.9) Magnesium Level 1.8 mg/dl (1.8-2.4) Last 24 Hours Test 02/18/16 12:27 02/18/16 18:03 02/19/16 07:55 Bedside Glucose 138 mg/dl 131 mg/dl White Blood Count 6.44 K/uL Red Blood Count 3.03 M/uL Hemoglobin 8.8 g/dL Hematocrit 27.7 % Mean Corpuscular Volume 91.4 fL Mean Corpuscular Hemoglobin 29.0 pg Mean Corpuscular Hemoglobin Concent 31.8 g/dl Platelet Count 251 K/uL Mean Platelet Volume 10.1 fL Neutrophils (%) (Auto) 66.4 % Lymphocytes (%) (Auto) 17.1 % Monocytes (%) (Auto) 11.0 % Eosinophils (%) (Auto) 2.5 % Basophils (%) (Auto) 1.1 % Neutrophils # (Auto) 4.28 K/uL Lymphocytes # (Auto) 1.10 K/uL Monocytes # (Auto) 0.71 K/uL Eosinophils # (Auto) 0.16 K/uL Basophils # (Auto) 0.07 K/uL RDW Standard Deviation 51.9 fL RDW Coefficient of Variation 15.3 % Immature Granulocyte % (Auto) 1.9 % Immature Granulocyte # (Auto) 0.12 K/uL Red Blood Cell Morphology Unremarkable Sodium Level 147 mmol/L Potassium Level 3.2 mmol/L Chloride Level 108 mmol/L Carbon Dioxide Level 30 mmol/L Anion Gap 9.0 mmol/L Blood Urea Nitrogen 52 mg/dl Creatinine 1.80 mg/dl Est Creatinine Clear Calc Drug Dose 36.6 ml/min Estimated GFR () 38.4 Estimated GFR (Non- 33.1 BUN/Creatinine Ratio 29.0 Random Glucose 158 mg/dl Calcium Level 8.0 mg/dl Phosphorus Level 2.5 mg/dl Magnesium Level 1.8 mg/dl (Anabel Samuel PA-C) Last 24 Hours Test 02/18/16 18:03 02/19/16 07:55 02/19/16 11:42 Bedside Glucose 131 mg/dl 131 mg/dl White Blood Count 6.44 K/uL Red Blood Count 3.03 M/uL Hemoglobin 8.8 g/dL Hematocrit 27.7 % Mean Corpuscular Volume 91.4 fL Mean Corpuscular Hemoglobin 29.0 pg Mean Corpuscular Hemoglobin Concent 31.8 g/dl Platelet Count 251 K/uL Mean Platelet Volume 10.1 fL Neutrophils (%) (Auto) 66.4 % Lymphocytes (%) (Auto) 17.1 % Monocytes (%) (Auto) 11.0 % Eosinophils (%) (Auto) 2.5 % Basophils (%) (Auto) 1.1 % Neutrophils # (Auto) 4.28 K/uL Lymphocytes # (Auto) 1.10 K/uL Monocytes # (Auto) 0.71 K/uL Eosinophils # (Auto) 0.16 K/uL Basophils # (Auto) 0.07 K/uL RDW Standard Deviation 51.9 fL RDW Coefficient of Variation 15.3 % Immature Granulocyte % (Auto) 1.9 % Immature Granulocyte # (Auto) 0.12 K/uL Red Blood Cell Morphology Unremarkable Sodium Level 147 mmol/L Potassium Level 3.2 mmol/L Chloride Level 108 mmol/L Carbon Dioxide Level 30 mmol/L Anion Gap 9.0 mmol/L Blood Urea Nitrogen 52 mg/dl Creatinine 1.80 mg/dl Est Creatinine Clear Calc Drug Dose 36.6 ml/min Estimated GFR () 38.4 Estimated GFR (Non- 33.1 BUN/Creatinine Ratio 29.0 Random Glucose 158 mg/dl Calcium Level 8.0 mg/dl Phosphorus Level 2.5 mg/dl Magnesium Level 1.8 mg/dl (Rosalio Griffin MD) Assessment and Plan Mr. Leung is a 85 y/o male with PMHx of Ulcerative Colitis S/P Partial Colectomy with Ileostomy (50 years ago), S/P Appendectomy, BPH S/P TURP, GERD, and MVP who presents to the ED complaining of nausea and vomiting. Patient was admitted to the telemetry floor for further evaluation and care. Nausea/Vomiting/Diarrhea: SBO s/p ex lab lysis of adhesions on 02/09 CT abd 02/14: Mildly distended loops of proximal small bowel with decompressed loops of mid to distal small bowel KUB and gallbladder US 02/08 persistent ileus and stones and sludge Small bowel follow through determined likely mechanical obstruction, ex lap , adhesions noted, no ischemic bowel Continue TPN for now per surgery's recommendations Diet advanced to full liquids today. Abdominal Pain: Ileus vs SBO KUB - image and report reviewed - SBO vs Ileus CT Abd/Pelvis with oral contrast - SBO; L lobe liver gas - portal venous gas; and stones/sludge in GB, bilirubin trending down Consult Gen Surg - appreciate further recommendations Acute Kidney Injury: Baseline Unknown - Last Cr 1.10 (Sep 2015): Creatinine remaining elevated at 1.8-? New baseline serial BMPs, no worsening change Hypernatremia/hypokalemia Pharmacy managing TPN Elevated Troponin: NSTEMI vs Demand Ischemia EKG - reviewed - Sinus tach without T wave inversions or obvious ischemic changes Trops increased but trending down Cardiology following - agree with recommendations D/C Heparin gtt - 48 hour coverage was completed Hypotension: Resolved Patient reports his BP is normally "very low" and has received NSS boluses in ED Restarted on Propranolol ER and Lisinopril Mechanical Fall: Prior to Admission 2/2 Intractable Vomiting XR Thoracic and Cervical - image and report reviewed - degenerative changes no acute fractures GERD: Protonix 40 mg daily as interchange for Omeprazole DVT Prophylaxis: Heparin sq 5000 units Q12H Code Status: FULL RESUSCITATION DISPO: Hopefully he can be discharged home without TPN if tolerating diet possibly tomorrow (Anabel Samuel, PA-C) Mr. Leung is a 85 y/o male with PMHx of Ulcerative Colitis S/P Partial Colectomy with Ileostomy (50 years ago), S/P Appendectomy, BPH S/P TURP, GERD, and MVP who presents to the ED complaining of nausea and vomiting. Patient was admitted to the telemetry floor for further evaluation and care. 1. Nausea/Vomiting/Diarrhea: SBO s/p ex lab lysis of adhesions on 02/09 CT abd 02/14: Mildly distended loops of proximal small bowel with decompressed loops of mid to distal small bowel KUB and gallbladder US 02/08 persistent ileus and stones and sludge Small bowel follow through determined likely mechanical obstruction, ex lap , adhesions noted, no ischemic bowel Continue TPN for now per surgery's recommendations,hopefully d/c TPN tomorrow and d/c without it if tolerates diet Diet advanced to full liquids today. 2. Abdominal Pain: Ileus vs SBO KUB - image and report reviewed - SBO vs Ileus CT Abd/Pelvis with oral contrast - SBO; L lobe liver gas - portal venous gas; and stones/sludge in GB, bilirubin trending down Consult Gen Surg - appreciate further recommendations 3. Acute Kidney Injury: Baseline Unknown - Last Cr 1.10 (Sep 2015): Creatinine remaining elevated at 1.8-? New baseline serial BMPs, no worsening change 4. Hypernatremia/hypokalemia Pharmacy managing TPN 5. Elevated Troponin: NSTEMI vs Demand Ischemia EKG - reviewed - Sinus tach without T wave inversions or obvious ischemic changes Trops increased but trending down Cardiology following - agree with recommendations D/C Heparin gtt - 48 hour coverage was completed 6. Hypotension: Resolved Patient reports his BP is normally "very low" and has received NSS boluses in ED Restarted on Propranolol ER and Lisinopril 7. Mechanical Fall: Prior to Admission 2/2 Intractable Vomiting XR Thoracic and Cervical - image and report reviewed - degenerative changes no acute fractures 8. GERD: Protonix 40 mg daily as interchange for Omeprazole DVT Prophylaxis: Heparin sq 5000 units Q12H FULL RESUSCITATION DISPO: Hopefully he can be discharged home without TPN if tolerating diet possibly tomorrow (Rosalio Griffin MD)
[2016-02-19] MEDS ORDERED: POTASSIUM CHLR 10 MEQ / WTR 10 MEQ in PREMIXED WATER 100 ML IV SCH (11:15)
--- NOTE | 2016-02-19 11:56 | Pharmacy Progress Note ---
Parenteral Nutrition Consult Date of Service Feb 19, 2016. [facility] was consulted on 02/19/16 to manage parenteral nutrition orders for this patient. Subjective The patient is currently on day 6 of CENTRAL parenteral nutrition for SBO, internal hernia, s/p exp lap with CHAD on 02/09 Objective Height (Feet): 6 Height (Inches): 2.00 Weight (Kilograms): 100.700 Diet: Full Liquid, NPO Vascular Access: CENTRAL line: double lumen PICC Intake & Output (Last 72 Hr): cumulative I/O = +9.7 Liters (however weight increase only ~6kg) last 24 hrs I/O = + 1.5L U.O. = ~1.3L Laboratory Data (Last 24 Hr): Test 02/19/16 07:55 Blood Urea Nitrogen 52 mg/dl (7-18) Calcium Level 8.0 mg/dl (8.5-10.1) Carbon Dioxide Level 30 mmol/L (21-32) Chloride Level 108 mmol/L (98-107) Creatinine 1.80 mg/dl (0.60-1.40) Magnesium Level 1.8 mg/dl (1.8-2.4) Phosphorus Level 2.5 mg/dl (2.5-4.9) Potassium Level 3.2 mmol/L (3.5-5.1) Random Glucose 158 mg/dl (70-99) Sodium Level 147 mmol/L (136-145) Recent Pertinent Medications: Pantoprazole 40mg PO daily Mag Ox 400mg PO daily Lisinopril 2.5mg PO daily KCl 10mEq IV x 2 today Nutrition Assessment Please refer to the Notes section of the EMR for the most recent armed security guard note. Assessment Patient is reported to be feeling well today, passing flatus and stool. Denies nausea, + bowel sounds and reported to be tolerating clears well. Diet has been advanced to full liquid diet. Per provider's physical assessment: lungs clear, no JVD, trace pitting edema, abdomen still slightly distended. Vital signs stable, sat well on room air Electrolytes are improving, however still hypokalemic (but less so than yesterday, K+ content is being titrate up cautiously in setting of JACQUES), hypernatremic (despite removing as many Na salts as possible from TPN) and mildly hyperchloremic (but improving while minimizing Cl salts). Na and Cl likely to improve as PO fluid intake improves. Will increase the total volume of today's TPN bag to allow for more free water - discussed with provider - no concern for fluid overload at this time. Plan For day 6 of PN administration, the following will be ordered: Macronutrients Amino acids 150 grams/day Dextrose 350 grams/day Lipids 50 grams/day today Micronutrients Combined electrolytes 0 mL - contains 35 mEq Na, 20 meq K, 4.5 mEq Ca, 5 mEq Mg , 35 mEq Cl, 29.5 mEq acetate per 20 mL Sodium phosphate 0 MMol Sodium chloride 0 mEq Sodium acetate 0 mEq Potassium phosphate 24 mMol Potassium chloride 30 mEq Potassium acetate 90 mEq Magnesium sulfate 8.12 mEq Calcium gluconate 0 mEq Multivitamins 10 mL Trace Elements 1 mL Additional additives: Total volume 2400 mL to be infused over 24 hrs will provide 2290 kcal/day Labs, as indicated, will be ordered per protocol Pharmacy will continue to follow and adjust parenteral nutrition orders on a daily basis. Thank you for allowing us to participate in the care of this patient.
[2016-02-19 15:38] VITALS: BP 120/76; PULSE 72; TEMP 36.8; O2SAT 96
[2016-02-19 16:00] VITALS: O2SAT 96
[2016-02-19] MEDS ORDERED: CUSTOM CENTRAL PN 1 BAG IV SCH (16:00)
[2016-02-19] MEDS ORDERED: POTASSIUM CHLR 10 MEQ / WTR 10 MEQ in PREMIXED WATER 100 ML IV ONE (18:00)
[2016-02-19] MEDS: ONDANSETRON INJ 2 MG/ML 2 ML VIAL IV PRN (18:23)
[2016-02-20 00:39] VITALS: BP 121/69; PULSE 76; TEMP 36.9; O2SAT 97
--- NOTE | 2016-02-20 07:10 | SURGERY PROGRESS NOTE ---
DATE: 02/20/2016 DATE: 02/20/2016 Dereje appears much better than he was yesterday. He states his nausea is subsiding. He has had more output through the ileostomy. His abdomen is a bit softer. He is tolerating some p.o. PHYSICAL EXAMINATION: His last vitals showed a temperature of 36.9, pulse 76, respirations 18, blood pressure 121/69, O2 sats 97 on room air. His abdomen is completely benign. The incision is intact, free of any drainage. [place] intact. There is no ecchymosis or cellulitis. He is on still on hyperalimentation. From my point of view, the patient can probably come off hyperalimentation today, advance his diet as tolerated and likely could be discharged tomorrow from our point of view, if he tolerates a diet and no issues today. We will probably see him back in the office in approximately 1 week. At that time, we will take the vinicius out.
[2016-02-20 08:13] VITALS: BP 134/77; PULSE 84; TEMP 36.7; O2SAT 98
[2016-02-20 08:47] LABS: BASO ABS # 0.07 K/uL (0-0.2); COMPLETE YES; EOS % 3.4 %; HEMATOCRIT 28.4 % (42-52); IG% 2.4 %; LYMPH % 14.6 %; LYMPH ABS # 0.98 K/uL (1.2-3.4); MEAN CELL VOLUME 90.2 fL (80-100); MEAN CORPUSCULAR HEMOGLOBIN 29.2 pg (25-34); MEAN CORPUSCULAR HGB CONC 32.4 g/dl (32-36); MEAN PLATELET VOLUME 10.6 fL (7.4-10.4); MONO % 11.5 %; NEUT % 67.1 %; PLATELET COUNT 266 K/uL (130-400); RED BLOOD COUNT 3.15 M/uL (4.7-6.1); WHITE BLOOD COUNT 6.69 K/uL (4.8-10.8)
[2016-02-20] MEDS: IPRATROPIUM BROMIDE/ALBUTEROL respimat INH INH SCH ×4 (09:16→20:08)
[2016-02-20] MEDS: LISINOPRIL 2.5 MG TAB PO SCH (09:17)
[2016-02-20] MEDS: PANTOprazole SOD 40 MG TAB PO SCH (09:17)
[2016-02-20] MEDS: PRIMIDONE 50 MG TAB PO SCH (09:17)
[2016-02-20] MEDS: CHOLECALCIFEROL 1000 INTER.UNIT TAB PO SCH (09:17)
[2016-02-20] MEDS: ASPIRIN 81 MG ECTAB PO SCH (09:17)
[2016-02-20] MEDS: PROPRANOLOL HCL 80 MG LA CAP PO SCH (09:17)
[2016-02-20] MEDS: MAGNESIUM OXIDE 400 MG TAB PO SCH (09:18)
[2016-02-20] MEDS: HEPARIN SOD 5000 UNIT/0.5 ML CARP SQ SCH ×2 (09:22→20:08)
[2016-02-20 09:29] LABS: BUN/CREATININE RATIO 28.6 (10-20); C-REACTIVE PROTEIN 3.89 mg/dl (0-0.29); CALCIUM 7.7 mg/dl (8.5-10.1); CREATININE 1.8 mg/dl (0.60-1.40); MAGNESIUM 1.8 mg/dl (1.8-2.4); POTASSIUM 3.6 mmol/L (3.5-5.1)
[2016-02-20 09:37] LABS: PHOSPHORUS 2.8 mg/dl (2.5-4.9); PREALBUMIN 16.2 mg/dl (20-40)
--- NOTE | 2016-02-20 13:18 | Pharmacy Progress Note ---
Parenteral Nutrition Consult Date of Service Feb 20, 2016. Scope Pharmacy was consulted on 02/14/16 to manage parenteral nutrition orders for this patient. Subjective The patient is currently on day 7 of [facility] parenteral nutrition for SBO, internal hernia, s/p exp lap with CHAD on 02/09 Objective Height (Feet): 6 Height (Inches): 2.00 Weight (Kilograms): 97.000 Diet: Full Liquid, Soft Low Fiber, NPO Intake & Output (Last 72 Hr): cumulative I/O ~+13L however wt gain does not coincide with this large of positive fluid balance? (wt 02/04 =95.8kg; today's wt = 97kg) +2.6L fluid balance in last 24 hours U.O. last 24 hrs ~1.1L Laboratory Data (Last 24 Hr): Test 02/20/16 08:25 Blood Urea Nitrogen 51 mg/dl (7-18) Calcium Level 7.7 mg/dl (8.5-10.1) Carbon Dioxide Level 31 mmol/L (21-32) Chloride Level 104 mmol/L (98-107) Creatinine 1.80 mg/dl (0.60-1.40) Magnesium Level 1.8 mg/dl (1.8-2.4) Phosphorus Level 2.8 mg/dl (2.5-4.9) Potassium Level 3.6 mmol/L (3.5-5.1) Prealbumin 16.2 mg/dl (20-40) Random Glucose 149 mg/dl (70-99) Sodium Level 142 mmol/L (136-145) Recent Pertinent Medications: Pantoprazole 40mg PO daily Mag Ox 400mg PO daily Lisinopril 2.5mg PO daily Nutrition Assessment Please refer to the Notes section of the EMR for the most recent instruments sales representative note. Assessment Patient appears to be improving clinically per provider's assessments. Patient reported to have less nausea, abdomen softer and continues to pass stool in ostomy. In fact, surgery suggested that TPN may be d/c'd today as diet is advanced. I discussed need for TPN with hospitalist team and they would prefer to continue the TPN for one more day while receiving a diet more substantial than full liquids. Hospitalist noted that patient appearing more fluid positive at this time on physical exam and would like to reduce volume of today's bag. Will reduce TPN volume to minimum needed to deliver macro- / micronutrients and will also reduce caloric load in TPN to allow for lower volume now that diet advanced further. E-lytes much improved today. Plan For day 7 of PN administration, the following will be ordered: Macronutrients Amino acids 75 grams/day Dextrose 175 grams/day Lipids 0 grams/day Micronutrients Combined electrolytes 0 mL - contains 35 mEq Na, 20 meq K, 4.5 mEq Ca, 5 mEq Mg , 35 mEq Cl, 29.5 mEq acetate per 20 mL Sodium phosphate 0 MMol Sodium chloride 0 mEq Sodium acetate 0 mEq Potassium phosphate 24 mMol Potassium chloride 30 mEq Potassium acetate 90 mEq Magnesium sulfate 8.12 mEq Calcium gluconate 4.65 mEq Multivitamins 10 mL Trace Elements 1 mL Additional additives: Total volume 1091 mL (mimimum volume) to be infused over 24 hrs will provide 895 kcal/day Labs, as indicated, will be ordered per protocol Pharmacy will continue to follow and adjust parenteral nutrition orders on a daily basis. Thank you for allowing us to participate in the care of this patient.
--- NOTE | 2016-02-20 14:42 | Hospitalist Progress Note ---
Hospitalist Progress Note Date of Service Feb 20, 2016. (Anabel Samuel PA-C) 02/20/16 tolerating diet, no abdominal pain, no n/v/d (Rosalio Griffin MD) Subjective Pt evaluation today including: conversation w/ patient, conversation w/ family , physical exam, chart review, lab review, conversation w/ learning consultant, review of inpatient medication list feeling well today. Somewhat tired as he just did 3 laps in the hallway. No abd pain. Better output from ostomy. No Nausea. Tolerating full liquids Additional Comments: 6 system review negative. Please see pertinent positives in the history of present illness section. (Anabel Samuel PA-C) Pt evaluation today including: conversation w/ patient, physical exam, chart review, review of studies, review of inpatient medication list Constitutional: No fever ENT: No hearing loss Respiratory: No cough Cardiovascular: No chest pain Abdomen: No pain Male : No dysuria Neurologic: No memory loss Psychiatric: No depression symptoms Endo: No fatigue (Rosalio Griffin MD) Objective Vital Signs Date Time Temp Pulse Resp B/P Pulse Ox O2 Delivery O2 Flow Rate FiO2 02/20/16 09:10 Room Air 02/20/16 08:13 36.7 84 16 134/77 98 Room Air 02/20/16 00:39 36.9 76 18 121/69 97 Room Air 02/20/16 00:00 Room Air 02/19/16 20:00 Room Air 02/19/16 16:00 96 Room Air 02/19/16 15:38 36.8 72 16 120/76 96 Room Air (Anabel Samuel PA-C) Physical Exam General Appearance: no apparent distress Neck: no JVD Respiratory/Chest: + pertinent finding (slight decreased BS bases bilaterally. No wheezing) Cardiovascular: regular rate, rhythm Abdomen: soft, + pertinent finding (some liquid stool and gas in ostomy. No significant tenderness. Good BS) Extremities: + pertinent finding (+1 pitting edema without any erythema, tenderness or warmth appreciated bilaterally.) Neurologic/Psychiatric: no motor/sensory deficits, oriented x 3 Skin: warm/dry (Anabel Samuel PA-C) General Appearance: WD/WN, no apparent distress Eyes: normal inspection, EOMI ENT: hearing grossly normal, pharynx normal Neck: supple, no JVD Respiratory/Chest: lungs clear, no respiratory distress Cardiovascular: no edema, no JVD Abdomen: normal bowel sounds, no organomegaly Extremities: normal inspection, no pedal edema Neurologic/Psychiatric: alert, normal mood/affect Skin: normal color, warm/dry (Rosalio Griffin MD) Laboratory Results 02/20/16 08:25 Red Blood Count 3.15, Mean Corpuscular Volume 90.2, Mean Corpuscular Hemoglobin 29.2, Mean Corpuscular Hemoglobin Concent 32.4, Mean Platelet Volume 10.6, Neutrophils (%) (Auto) 67.1, Lymphocytes (%) (Auto) 14.6, Monocytes (%) (Auto) 11.5, Eosinophils (%) (Auto) 3.4, Basophils (%) (Auto) 1.0, Neutrophils # (Auto ) 4.48, Lymphocytes # (Auto) 0.98, Monocytes # (Auto) 0.77, Eosinophils # (Auto ) 0.23, Basophils # (Auto) 0.07 02/20/16 08:25 Test 02/20/16 08:25 02/20/16 12:07 White Blood Count 6.69 K/uL (4.8-10.8) Red Blood Count 3.15 M/uL (4.7-6.1) Hemoglobin 9.2 g/dL (14.0-18.0) Hematocrit 28.4 % (42-52) Mean Corpuscular Volume 90.2 fL (80-100) Mean Corpuscular Hemoglobin 29.2 pg (25-34) Mean Corpuscular Hemoglobin Concent 32.4 g/dl (32-36) Platelet Count 266 K/uL (130-400) Mean Platelet Volume 10.6 fL (7.4-10.4) Neutrophils (%) (Auto) 67.1 % Lymphocytes (%) (Auto) 14.6 % Monocytes (%) (Auto) 11.5 % Eosinophils (%) (Auto) 3.4 % Basophils (%) (Auto) 1.0 % Neutrophils # (Auto) 4.48 K/uL (1.4-6.5) Lymphocytes # (Auto) 0.98 K/uL (1.2-3.4) Monocytes # (Auto) 0.77 K/uL (0.11-0.59) Eosinophils # (Auto) 0.23 K/uL (0-0.5) Basophils # (Auto) 0.07 K/uL (0-0.2) RDW Standard Deviation 50.7 fL (36.4-46.3) RDW Coefficient of Variation 15.5 % (11.5-14.5) Immature Granulocyte % (Auto) 2.4 % Immature Granulocyte # (Auto) 0.16 K/uL (0.00-0.02) Anion Gap 7.0 mmol/L (3-11) Est Creatinine Clear Calc Drug Dose 33.6 ml/min Estimated GFR () 38.4 Estimated GFR (Non- 33.1 BUN/Creatinine Ratio 28.6 (10-20) Calcium Level 7.7 mg/dl (8.5-10.1) Phosphorus Level 2.8 mg/dl (2.5-4.9) Magnesium Level 1.8 mg/dl (1.8-2.4) C-Reactive Protein 3.89 mg/dl (0-0.29) Prealbumin 16.2 mg/dl (20-40) Bedside Glucose 174 mg/dl (70-99) Last 24 Hours Test 02/19/16 16:26 02/19/16 20:31 02/20/16 08:25 02/20/16 12:07 Bedside Glucose 118 mg/dl 134 mg/dl 174 mg/dl White Blood Count 6.69 K/uL Red Blood Count 3.15 M/uL Hemoglobin 9.2 g/dL Hematocrit 28.4 % Mean Corpuscular Volume 90.2 fL Mean Corpuscular Hemoglobin 29.2 pg Mean Corpuscular Hemoglobin Concent 32.4 g/dl Platelet Count 266 K/uL Mean Platelet Volume 10.6 fL Neutrophils (%) (Auto) 67.1 % Lymphocytes (%) (Auto) 14.6 % Monocytes (%) (Auto) 11.5 % Eosinophils (%) (Auto) 3.4 % Basophils (%) (Auto) 1.0 % Neutrophils # (Auto) 4.48 K/uL Lymphocytes # (Auto) 0.98 K/uL Monocytes # (Auto) 0.77 K/uL Eosinophils # (Auto) 0.23 K/uL Basophils # (Auto) 0.07 K/uL RDW Standard Deviation 50.7 fL RDW Coefficient of Variation 15.5 % Immature Granulocyte % (Auto) 2.4 % Immature Granulocyte # (Auto) 0.16 K/uL Sodium Level 142 mmol/L Potassium Level 3.6 mmol/L Chloride Level 104 mmol/L Carbon Dioxide Level 31 mmol/L Anion Gap 7.0 mmol/L Blood Urea Nitrogen 51 mg/dl Creatinine 1.80 mg/dl Est Creatinine Clear Calc Drug Dose 33.6 ml/min Estimated GFR () 38.4 Estimated GFR (Non- 33.1 BUN/Creatinine Ratio 28.6 Random Glucose 149 mg/dl Calcium Level 7.7 mg/dl Phosphorus Level 2.8 mg/dl Magnesium Level 1.8 mg/dl C-Reactive Protein 3.89 mg/dl Prealbumin 16.2 mg/dl (Anabel Samuel, LUCIANA) Assessment and Plan Mr. Leung is a 85 y/o male with PMHx of Ulcerative Colitis S/P Partial Colectomy with Ileostomy (50 years ago), S/P Appendectomy, BPH S/P TURP, GERD, and MVP who presents to the ED complaining of nausea and vomiting. Patient was admitted to the telemetry floor for further evaluation and care. Nausea/Vomiting/Diarrhea: SBO s/p ex lab lysis of adhesions on 02/09 Small bowel follow through determined likely mechanical obstruction, ex lap , adhesions noted, no ischemic bowel Continue TPN one more day Diet advanced to low residue today If tolerating-d/c without TPN tomorrow Acute Kidney Injury: Baseline Unknown - Last Cr 1.10 (Sep 2015): Creatinine remaining elevated at 1.8-? New baseline follow up for repeat labs 3-5 days as outpt Hypernatremia/hypokalemia-improved TPN one more day Mild fluid overload -d/w pharmacy-will decrease fluid in TPN Elevated Troponin: NSTEMI vs Demand Ischemia EKG - reviewed - Sinus tach without T wave inversions or obvious ischemic changes Trops increased but trending down D/C Heparin gtt - 48 hour coverage was completed Mild anemia-asymptomatic. Likely malnutrition/chronic dz. Don't suspect any bleeding Hgb stable Hypotension: Resolved Patient reports his BP is normally "very low" and has received NSS boluses in ED Restarted on Propranolol ER and Lisinopril Mechanical Fall: Prior to Admission 2/2 Intractable Vomiting XR Thoracic and Cervical - image and report reviewed - degenerative changes no acute fractures GERD: Protonix 40 mg daily as interchange for Omeprazole DVT Prophylaxis: Heparin sq 5000 units Q12H Code Status: FULL RESUSCITATION DISPO: Hopefully he can be discharged home without TPN if tolerating diet tomorrow (Anabel Samuel, PAApurvaC) Mr. Leung is a 85 y/o male with PMHx of Ulcerative Colitis S/P Partial Colectomy with Ileostomy (50 years ago), S/P Appendectomy, BPH S/P TURP, GERD, and MVP who presents to the ED complaining of nausea and vomiting. Patient was admitted to the telemetry floor for further evaluation and care. Nausea/Vomiting/Diarrhea: SBO s/p ex lab lysis of adhesions on 02/09 Small bowel follow through determined likely mechanical obstruction, ex lap , adhesions noted, no ischemic bowel Continue TPN one more day Diet advanced to low residue today If tolerating-d/c without TPN tomorrow Acute Kidney Injury: Baseline Unknown - Last Cr 1.10 (Sep 2015): Creatinine remaining elevated at 1.8-? New baseline Hypernatremia/hypokalemia-improved TPN one more day Mild fluid overload, decrease fluid rate in TPN Elevated Troponin: NSTEMI vs Demand Ischemia EKG Sinus tach without T wave inversions or obvious ischemic changes Trops increased but trending down D/C Heparin gtt, 48 hour coverage was completed Mild anemia-asymptomatic Hypotension: Resolved Patient reports his BP is normally "very low" and has received NSS boluses in ED Restarted on Propranolol ER and Lisinopril DVT Prophylaxis: Heparin sq 5000 units Q12H FULL RESUSCITATION Hopefully he can be discharged home without TPN if tolerating diet tomorrow (Rosalio Griffin MD)
[2016-02-20 15:06] VITALS: BP 115/69; PULSE 77; TEMP 36.7; O2SAT 95
[2016-02-20] MEDS ORDERED: [UNRECOGNIZED DRUG - REMARK] ONE (16:00)
[2016-02-20] MEDS ORDERED: CUSTOM CENTRAL PN 1 BAG IV SCH (16:00)
[2016-02-20] MEDS ORDERED: NURSING VERBAL MED ORDER ONE (17:00)
[2016-02-20] MEDS: MoRPHine SULFATE 4 MG/ML 1 ML CARP\\VIAL IV PRN (23:02)
[2016-02-20] MEDS: ONDANSETRON INJ 2 MG/ML 2 ML VIAL IV PRN (23:06)
[2016-02-21 00:43] VITALS: BP 113/67; PULSE 77; TEMP 36.5; O2SAT 92
--- NOTE | 2016-02-21 07:21 | SURGERY PROGRESS NOTE ---
DATE: 02/21/2016 HISTORY OF PRESENT ILLNESS: Dereje arellano is doing well except during the night he had an acute episode of sharp pain in the suprapubic area with occasional burning. He states that he is voiding well and once he received some analgesics, he has had no further episodes. He is tolerating a diet, and ileostomy is working well. hyper al has been discontinued. His last vitals showed a temperature of 36.5, pulse 77, respirations 20, blood pressure 113/67. The lab yesterday was noted. The abdomen is remaining soft, it is not distended. There is no obvious drainage from the incision. He appears to have possibly some suprapubic fullness therefore we will get a bladder scan and check urinalysis. If this 2 are fine and medically cleared, the patient will certainly be discharged today. ELSIE
[2016-02-21] MEDS: CHOLECALCIFEROL 1000 INTER.UNIT TAB PO SCH (08:00)
[2016-02-21] MEDS: MAGNESIUM OXIDE 400 MG TAB PO SCH (08:28)
[2016-02-21] MEDS: PROPRANOLOL HCL 80 MG LA CAP PO SCH (08:28)
[2016-02-21] MEDS: ASPIRIN 81 MG ECTAB PO SCH (08:28)
[2016-02-21] MEDS: PRIMIDONE 50 MG TAB PO SCH (08:28)
[2016-02-21] MEDS: LISINOPRIL 2.5 MG TAB PO SCH (08:28)
[2016-02-21] MEDS: PANTOprazole SOD 40 MG TAB PO SCH (08:28)
[2016-02-21] MEDS: IPRATROPIUM BROMIDE/ALBUTEROL respimat INH INH SCH ×2 (08:29→12:36)
[2016-02-21 08:30] VITALS: BP 107/62; PULSE 75; TEMP 36.6; O2SAT 92
[2016-02-21] MEDS: HEPARIN SOD 5000 UNIT/0.5 ML CARP SQ SCH (08:33)
[2016-02-21 08:41] LABS: MANUAL MICROSCOPIC REQUIRED? NO; REVIEW REQ? NO; URINE APPEARANCE CLEAR (CLEAR); URINE BILIRUBIN NEG (NEG); URINE COLOR YELLOW; URINE NITRITE NEG (NEG); URINE PH >= 9.0 (4.5-7.5); URINE SPECIFIC GRAVITY 1.013 (1.000-1.030); UROBILINOGEN NEG (NEG)
[2016-02-21 09:43] LABS: BUN/CREATININE RATIO 23.3 (10-20); CALCIUM 8.7 mg/dl (8.5-10.1); CREATININE 1.9 mg/dl (0.60-1.40); POTASSIUM 3.9 mmol/L (3.5-5.1)
--- NOTE | 2016-02-21 12:43 | DIAGNOSTIC IMAGING REPORT ---
KUB CLINICAL HISTORY: Sharp suprapubic pain. History of small bowel obstruction. COMPARISON STUDY: CT of the abdomen and pelvis February 15, 2016. FINDINGS: Skin vinicius and surgical sutures are noted. A right-sided ostomy is noted. The abdomen and pelvis are relatively gasless. The dilated small bowel loops shown on CT of February 15, 2016 are not visualized. Fluid-filled small bowel loops may be occult by radiography. IMPRESSION: No convincing evidence for a small bowel obstruction. Relatively paucity of bowel gas, a nonspecific pattern however no dilated loops of bowel are identified on this exam. Electronically signed by: Eric Joaquin M.D. 02/21/2016 12:41 PM
[2016-02-21] MEDS ORDERED: SENN-63 PO (13:18)
--- NOTE | 2016-02-21 13:28 | Discharge Instructions ---
Discharge Instructions Admission Reason for Admission: Pna,Sepsis Discharge Discharge Diagnosis / Problem: small bowel obstruction Discharge Goals Goal(s): Decrease discomfort, Improve function Activity Recommendations Activity Limitations: as noted below Lifting Limitations: no more than 5 pounds Exercise/Sports Limitations: until after follow-up appointment May Resume Sexual Activity: after follow-up appointment Shower/Bathe: keep incision dry (it is ok to let clean soapy water run over the incision. NO BATHS/HOT TUBS OR SOAKING IN WATER UNTIL FOLLOW UP) . Instructions / Follow-Up Instructions / Follow-Up You have been treated in the hospital for a small bowel obstruction. This was treated surgically by Dr. Horner You needed nutrition through an IV temporarily since you could not eat An xray performed the day of discharge did not show any signs of recurrent obstruction Please follow a low fiber diet. You have been prescribed Senokot. This is a stool softener to be taken twice daily You kidney function is slightly abnormal compared to you previous labs. It is stable, but you should follow up with your primary care provider to have repeat labs in [address] Horner will see you back in the office in 1 week (sooner for any problems) Return to the emergency department or call your surgeon if you have any of the following symptoms: -Fever of 101F or greater -Vomiting - No output from your ileostomy - Persistent diarrhea -Lethargy -Chest pain -Shortness of breath -Worsening abdominal pain -Inability to urinate for greater than 8 hours Current Hospital Diet Patient's current hospital diet: Low Fiber Diet Discharge Diet Recommended Diet: Low Fiber Diet Procedures Procedures Performed: Exploratory Laparotomy, Enterolysis Pending Studies Studies pending at discharge: no Laboratory Results Medical Emergencies . Who to Call and When: Medical Emergencies: If at any time you feel your situation is an emergency, please call 911 immediately. . Non-Emergent Contact Non-Emergency issues call your: Primary Care Provider, Surgeon . . "Provider Documentation" section prepared by Anabel Samuel. VTE Core Measure Inpt VTE Proph given/why not?: Unfractionated heparin NOLBERTO, T.E.Fay Barry, SCD 's
--- NOTE | 2016-02-21 13:47 | Discharge Summary ---
Discharge Summary Admission Date: Feb 05, 2016 at 13:18 Discharge Date: Feb 21, 2016 Discharge Disposition: Home Principal Diagnosis: SBO Problems/Secondary Diagnoses: elevated TROP HTN ? PNA Immunizations: Have You Had Influenza Vaccine: Yes History of Tetanus Vaccine?: UTD History of Pneumococcal: Yes History of Hepatitis B Vaccine: No Procedures: ex lap lysis of adhesions 02/09 ECHO Interpretation Summary n Conclusions -- n Ejection Fraction = 65-70%. n The left ventricular wall motion is normal at rest. n Right ventricular systolic pressure is normal. n Mildly dilated ascending aorta, 3.8cm. n Grade I diastolic dysfunction, (abnormal relaxation pattern). n Compared to previous echocardiogram 05/31/15, mitral regurgitation is less. Consultations: cardiology general surgery Medication Reconciliation New Medications: Sennosides (Senokot) 8.6 Mg Tab 1 TAB PO BID for 20 Days, #40 TAB Continued Medications: Aspirin (Aspirin Ec) 81 Mg Tab 81 MG PO DAILY Cholecalciferol (Vitamin D) 1,000 Inter.unit Tab 1000 INTER.UNIT PO DAILY, 0 Refills Fish Oil (Melrose-3) 1 Ea Cap 2 CAP PO DAILY, 0 Refills Glucosamine-Chondroitin (Glucosamine/Chondroitin) 500 Mg/400 Mg Cap 2 TABS PO BID Lisinopril (Zestril) 5 Mg Tab 2.5 MG PO DAILY, TAB Magnesium Oxide (Mag-Ox) 400 Mg Tab 400 MG PO DAILY, TAB Multivitamin (Multivitamin) Tab 1 TAB PO DAILY, 0 Refills Omeprazole (Prilosec Otc *) 20 Mg Tabcr 20 MG PO DAILY, 0 Refills Primidone (Mysoline) 50 Mg Tab 50 MG PO DAILY, TAB Propranolol Hcl (Propranolol Hcl Er) 80 Mg Cap 80 MG PO DAILY Referrals At Discharge Follow up Referrals: Physician Referral - Within 1 Week with Sajan Figueroa M.D. Surgery Referral - Within 1-2 Weeks with Chidi Horner M.D. Discharge Exam Patient feeling well today. Denies any nausea currently. He did not have a good night. He complained of 2 episodes of a sharp, stabbing pain in the suprapubic region that did cause him to be temporarily nauseated. He was given pain medication and nausea medication with good pain relief. The patient has had no further pain this morning. He denies any dysuria or hematuria. No fever or chills. No problems urinating. Tolerating his breakfast without nausea. Reports stool and gas in his ostomy this morning. Review of Systems: Constitutional: No fever Respiratory: No cough, No shortness of breath Cardiovascular: No chest pain Genitourinary - Female: No dysuria Physical Exam: General Appearance: no apparent distress Neck: no JVD Respiratory/Chest: lungs clear Cardiovascular: regular rate, rhythm Abdomen / GI: + pertinent finding (incision intact. Bowel sounds present. No significant tenderness noted. Small amount of gas present in the ostomy (it was just emptied)) Extremities: + pertinent finding (trace pitting edema in the lower extremities without any erythema, tenderness or warmth appreciated) Neurologic/Psychiatric: no motor/sensory deficits, oriented x 3 Skin: warm/dry, + pertinent finding (incision intact) Hospital Course Mr. Leung is a 85 y/o male with PMHx of Ulcerative Colitis S/P total Colectomy with Ileostomy (50 years ago), S/P Appendectomy, BPH S/P TURP, GERD, and MVP who presents to the ED complaining of nausea and vomiting. Patient was admitted to the telemetry floor for further evaluation and care. Small bowel follow through determined likely mechanical obstruction, ex lap , adhesions noted, no ischemic bowel Nausea/Vomiting/Diarrhea: SBO s/p ex lab lysis of adhesions on 02/09 pt was kept NPO upon admission NG inserted Exploratory laparoscopy status post CHAD performed on 02/09 PICC line inserted-TPN given Diet slowly advanced-tolerating on the day of discharge a low fiber diet 2 episodes of suprapubic pain on day of D/C-etiology unclear. Incision is intact. No urinary retention. No UTI per urinalysis. Patient is currently asymptomatic. KUB done-no signs of obstruction -Follow up PCP if symptoms persists Elevated Troponin: NSTEMI vs Demand Ischemia EKG - reviewed - Sinus tach without T wave inversions or obvious ischemic changes Trops increased but trending down Echo no WM abnormalities-preserved EF D/C Heparin gtt - 48 hour coverage was completed Acute Kidney Injury: Baseline Unknown - Last Cr 1.10 (Sep 2015): Creatinine remaining elevated at 1.8-? New baseline follow up for repeat labs 3-5 days as outpt Hypernatremia/hypokalemia-improved Mild anemia-asymptomatic. Likely malnutrition/chronic dz. Don't suspect any bleeding Hgb stable Hypotension: Resolved Patient reports his BP is normally "very low" and has received NSS boluses in ED Restarted on Propranolol ER and Lisinopril Mechanical Fall: Prior to Admission 2/2 Intractable Vomiting XR Thoracic and Cervical - image and report reviewed - degenerative changes no acute fractures GERD: Protonix 40 mg daily as interchange for Omeprazole DVT Prophylaxis: Heparin sq 5000 units Q12H Code Status: FULL RESUSCITATION DISPO: Tolerating diet. TPN discontinued. PICC line removed. -Patient to return home Total Time Spent: Greater than 30 minutes This includes examination of the patient, discharge planning, medication reconciliation, and communication with other providers. Discharge Instructions Please refer to the electronic Patient Visit Report (Discharge Instructions) for additional information. Follow-Up Gen. surgery 1 week PCP 1 week Additional Copies To Chidi Horner M.D.; Sajan Figueroa M.D.
[2016-02-21 14:12] VITALS: BP 107/62; PULSE 75; TEMP 36.6; O2SAT 92
--- NOTE | 2016-02-26 23:59 | EDITING REQUIRED CODING QUERY ---
PRESENT ON ADMISSION QUERY To promote full compliance with coding requirements relating to pateint care, physician participation is requested in all cases of ferryboat operator helper uncertainty. Please assist us with the question(s) below: Please place an X within the parenthesis (x). The following diagnosis(es) listed in this patient's medical record require physician assistance to determine if they were present on admission (POA) or not. Please advise for each diagnosis whether it was present on admission, not present on admission, or if it was clinically undetermined. 1. K56.5 Intestinal Adhesions with obstruction (x ) Present On Admission ( ) Not Present On Admission ( ) Clinically Undetermined 2.(Sheet Metal Insulator insert Diagnosis and where it was documented in the record) ( ) Present On Admission ( ) Not Present On Admission ( ) Clinically Undetermined 3.(Sheet Metal Insulator insert Diagnosis and where it was documented in the record) ( ) Present On Admission ( ) Not Present On Admission ( ) Clinically Undetermined 4.(Sheet Metal Insulator insert Diagnosis and where it was documented in the record) ( ) Present On Admission ( ) Not Present On Admission ( ) Clinically Undetermined 5.(Sheet Metal Insulator insert Diagnosis and where it was documented in the record) ( ) Present On Admission ( ) Not Present On Admission ( ) Clinically Undetermined Thank you Jamila Ross *Definition of the present on admission (POA)-Present on admission is defined as present at the time the order for inpatient admission occurs. Conditions that develop during an outpatient encounter prior to a written order for inpatient admission (including emergency department, observation, or outpatient surgery) are considered present on admission.
--- NOTE | 2016-02-27 00:04 | EDITING REQUIRED CODING QUERY ---
PRESENT ON ADMISSION QUERY To promote full compliance with coding requirements relating to pateint care, physician participation is requested in all cases of shellfish shucker uncertainty. Please assist us with the question(s) below: Please place an X within the parenthesis (x). The following diagnosis(es) listed in this patient's medical record require physician assistance to determine if they were present on admission (POA) or not. Please advise for each diagnosis whether it was present on admission, not present on admission, or if it was clinically undetermined. 1. K56.5 Intestinal Adhesions with obstruction (x ) Present On Admission ( ) Not Present On Admission ( ) Clinically Undetermined 2.(Composite Layup Worker insert Diagnosis and where it was documented in the record) ( ) Present On Admission ( ) Not Present On Admission ( ) Clinically Undetermined 3.(Composite Layup Worker insert Diagnosis and where it was documented in the record) ( ) Present On Admission ( ) Not Present On Admission ( ) Clinically Undetermined 4.(Composite Layup Worker insert Diagnosis and where it was documented in the record) ( ) Present On Admission ( ) Not Present On Admission ( ) Clinically Undetermined 5.(Composite Layup Worker insert Diagnosis and where it was documented in the record) ( ) Present On Admission ( ) Not Present On Admission ( ) Clinically Undetermined Thank you Jamila Ross *Definition of the present on admission (POA)-Present on admission is defined as present at the time the order for inpatient admission occurs. Conditions that develop during an outpatient encounter prior to a written order for inpatient admission (including emergency department, observation, or outpatient surgery) are considered present on admission.
== END 2016-02-21 15:29 | disposition home or self-care (01) | DRG 335 ==
LOC: ENRESERVDT → ENRESERVTM → EDBD 11:08 → C.EDC 11:09 → C.MED 13:18 → C.2T 02-07 12:35 → C.4E 02-12 16:03
PROVIDERS: ADMIT Family Medicine; ATTEND Hospitalist
PROC: 0DN80ZZ Release Small Intestine, Open Approach (ICD-10-PCS; principal; 2016-02-10 08:30)
DX: K56.5 Intestinal adhesions [bands] with obstruction (postinfection) (principal); J69.0 Pneumonitis due to inhalation of food and vomit; I21.4 Non-ST elevation (NSTEMI) myocardial infarction; K51.90 Ulcerative colitis, unspecified, without complications; N17.9 Acute kidney failure, unspecified; K80.10 Calculus of gallbladder with chronic cholecystitis without obstruction; E46 Unspecified protein-calorie malnutrition; I24.8 Other forms of acute ischemic heart disease; E87.0 Hyperosmolality and hypernatremia; K56.7 Ileus, unspecified; L30.9 Dermatitis, unspecified; K21.9 Gastro-esophageal reflux disease without esophagitis; M19.90 Unspecified osteoarthritis, unspecified site; Z87.442 Personal history of urinary calculi; Z87.440 Personal history of urinary (tract) infections; Z82.49 Family history of ischemic heart disease and other diseases of the circulatory system; Z87.891 Personal history of nicotine dependence; Z91.048 Other nonmedicinal substance allergy status; Z79.82 Long term (current) use of aspirin; Z79.899 Other long term (current) drug therapy; I95.9 Hypotension, unspecified; K52.9 Noninfective gastroenteritis and colitis, unspecified; N40.0 Benign prostatic hyperplasia without lower urinary tract symptoms; Z83.3 Family history of diabetes mellitus; Z83.6 Family history of other diseases of the respiratory system; K82.8 Other specified diseases of gallbladder; Z68.27 Body mass index [BMI] 27.0-27.9, adult; I10 Essential (primary) hypertension; E87.6 Hypokalemia; Z93.2 Ileostomy status; Z90.79 Acquired absence of other genital organ(s); I34.1 Nonrheumatic mitral (valve) prolapse; E86.0 Dehydration

== ENCOUNTER → 2016-02-25 | Outpatient (CLI) | payer OTHER, BC ==
[~2016-02-25] MED LIST changes: +ASPI81TA28 PO; -HYDR25TA4 PO; +LISI-729 PO; +MAGN400T6 PO; -POTA10CA28 PO; +SENN-63 PO
[2016-02-25 10:19] LABS: BLOOD UREA NITROGEN 30 mg/dl (7-18); BUN/CREATININE RATIO 17.8 (10-20); CALCIUM 8.5 mg/dl (8.5-10.1); CARBON DIOXIDE 23 mmol/L (21-32); CHLORIDE 109 mmol/L (98-107); GLUCOSE 94 mg/dl (70-99); POTASSIUM 4.2 mmol/L (3.5-5.1); SODIUM 141 mmol/L (136-145)
== END | disposition home or self-care (01) ==
LOC: C.LABFOXMH 09:48
PROVIDERS: ATTEND Internal Medicine
DX: S37.009A Unspecified injury of unspecified kidney, initial encounter (principal); X58.XXXA Exposure to other specified factors, initial encounter

== ENCOUNTER → 2016-03-10 | Outpatient (CLI) | payer OTHER, BC ==
[2016-03-10 10:12] LABS: BLOOD UREA NITROGEN 37 mg/dl (7-18); BUN/CREATININE RATIO 22.9 (10-20); CALCIUM 9.2 mg/dl (8.5-10.1); CARBON DIOXIDE 22 mmol/L (21-32); CHLORIDE 105 mmol/L (98-107); GLUCOSE 88 mg/dl (70-99); POTASSIUM 4.2 mmol/L (3.5-5.1); SODIUM 138 mmol/L (136-145)
== END | disposition home or self-care (01) ==
LOC: C.LABFOXMH 09:16
PROVIDERS: ATTEND Internal Medicine
DX: S37.009A Unspecified injury of unspecified kidney, initial encounter (principal); X58.XXXA Exposure to other specified factors, initial encounter

== ENCOUNTER → 2016-03-17 | Outpatient (CLI) | payer OTHER, BC ==
[~2016-03-17] MED LIST changes: -SENN-63 PO
[2016-03-17 08:22] LABS: HEMATOCRIT 23.8 % (42-52); MEAN CELL VOLUME 89.1 fL (80-100); MEAN CORPUSCULAR HEMOGLOBIN 29.6 pg (25-34); MEAN CORPUSCULAR HGB CONC 33.2 g/dl (32-36); MEAN PLATELET VOLUME 9.7 fL (7.4-10.4); PLATELET COUNT 137 K/uL (130-400); RED BLOOD COUNT 2.67 M/uL (4.7-6.1); WHITE BLOOD COUNT 4.99 K/uL (4.8-10.8)
[2016-03-17 08:30] LABS: ALT/SGPT 21 U/L (12-78); AMYLASE 58 U/L (25-115); AST/SGOT 18 U/L (15-37); BLOOD UREA NITROGEN 35 mg/dl (7-18); BUN/CREATININE RATIO 19.4 (10-20); CALCIUM 8.8 mg/dl (8.5-10.1); CARBON DIOXIDE 23 mmol/L (21-32); CHLORIDE 106 mmol/L (98-107); GLUCOSE 78 mg/dl (70-99); POTASSIUM 4.2 mmol/L (3.5-5.1); SODIUM 140 mmol/L (136-145)
[2016-03-17 08:32] LABS: ALB/GLOB RATIO 0.8 (0.9-2); ALKALINE PHOSPHATASE 75 U/L (45-117)
== END | disposition home or self-care (01) ==
LOC: C.LABFOXMH 08:05
PROVIDERS: ATTEND Internal Medicine
DX: R63.0 Anorexia (principal)

== ENCOUNTER → 2016-03-24 | Outpatient (CLI) | payer OTHER, BC ==
[2016-03-24 10:13] LABS: HEMATOCRIT 26.5 % (42-52); MEAN CELL VOLUME 90.1 fL (80-100); MEAN CORPUSCULAR HEMOGLOBIN 29.3 pg (25-34); MEAN CORPUSCULAR HGB CONC 32.5 g/dl (32-36); MEAN PLATELET VOLUME 9.4 fL (7.4-10.4); PLATELET COUNT 208 K/uL (130-400); RED BLOOD COUNT 2.94 M/uL (4.7-6.1); WHITE BLOOD COUNT 4.54 K/uL (4.8-10.8)
== END | disposition home or self-care (01) ==
LOC: C.LABFOXMH 09:25
PROVIDERS: ATTEND Internal Medicine
DX: D64.9 Anemia, unspecified (principal)

== ENCOUNTER → 2016-05-09 | Outpatient (CLI) | payer OTHER, BC ==
[2016-05-09 08:08] LABS: HEMATOCRIT 32.7 % (42-52); MEAN CELL VOLUME 91.3 fL (80-100); MEAN CORPUSCULAR HEMOGLOBIN 29.9 pg (25-34); MEAN CORPUSCULAR HGB CONC 32.7 g/dl (32-36); MEAN PLATELET VOLUME 9.6 fL (7.4-10.4); PLATELET COUNT 209 K/uL (130-400); RED BLOOD COUNT 3.58 M/uL (4.7-6.1); WHITE BLOOD COUNT 4.96 K/uL (4.8-10.8)
[2016-05-09 08:15] LABS: BLOOD UREA NITROGEN 23 mg/dl (7-18); BUN/CREATININE RATIO 20.7 (10-20); CALCIUM 9.1 mg/dl (8.5-10.1); CARBON DIOXIDE 27 mmol/L (21-32); CHLORIDE 107 mmol/L (98-107); GLUCOSE 90 mg/dl (70-99); POTASSIUM 4.1 mmol/L (3.5-5.1); SODIUM 140 mmol/L (136-145)
== END | disposition home or self-care (01) ==
LOC: C.LABFOXMH 07:54
PROVIDERS: ATTEND Internal Medicine
DX: R06.02 Shortness of breath (principal)

== ENCOUNTER → 2016-11-26 | Outpatient (CLI) | payer OTHER, BC ==
[2016-11-26 09:57] LABS: HEMATOCRIT 34.9 % (42-52); MEAN CELL VOLUME 90.2 fL (80-100); MEAN CORPUSCULAR HEMOGLOBIN 29.7 pg (25-34); MEAN PLATELET VOLUME 9.5 fL (7.4-10.4); PLATELET COUNT 169 K/uL (130-400); RED BLOOD COUNT 3.87 M/uL (4.7-6.1); WHITE BLOOD COUNT 5.43 K/uL (4.8-10.8)
[2016-11-26 10:06] LABS: BLOOD UREA NITROGEN 25 mg/dl (7-18); BUN/CREATININE RATIO 21.1 (10-20); CALCIUM 8.7 mg/dl (8.5-10.1); CARBON DIOXIDE 27 mmol/L (21-32); CHLORIDE 108 mmol/L (98-107); GLUCOSE 92 mg/dl (70-99); MAGNESIUM 2.3 mg/dl (1.8-2.4); POTASSIUM 4.3 mmol/L (3.5-5.1); SODIUM 141 mmol/L (136-145)
== END | disposition home or self-care (01) ==
LOC: C.LABFOXMH 09:21
PROVIDERS: ATTEND Internal Medicine
DX: D64.9 Anemia, unspecified (principal); E83.42 Hypomagnesemia

== ENCOUNTER → 2017-03-30 | Outpatient (CLI) | payer OTHER, BC ==
[2017-03-30 08:29] LABS: HEMATOCRIT 37.6 % (42-52); HEMOGLOBIN 12.5 g/dL (14.0-18.0); MEAN CELL VOLUME 87.9 fL (80-100); MEAN CORPUSCULAR HEMOGLOBIN 29.2 pg (25-34); MEAN CORPUSCULAR HGB CONC 33.2 g/dl (32-36); MEAN PLATELET VOLUME 9.3 fL (7.4-10.4); PLATELET COUNT 159 K/uL (130-400); RED CELL DISTRIBUTION WIDTH CV 15.1 % (11.5-14.5); RED CELL DISTRIBUTION WIDTH SD 48.6 fL (36.4-46.3); WHITE BLOOD COUNT 4.94 K/uL (4.8-10.8)
[2017-03-30 08:37] LABS: BLOOD UREA NITROGEN 19 mg/dl (7-18); CALCIUM 9.3 mg/dl (8.5-10.1); CARBON DIOXIDE 24 mmol/L (21-32); CREATININE 1.02 mg/dl (0.60-1.40); GLUCOSE 93 mg/dl (70-99); POTASSIUM 4.1 mmol/L (3.5-5.1); SODIUM 139 mmol/L (136-145)
== END | disposition home or self-care (01) ==
LOC: C.LABFOXMH 08:06
PROVIDERS: ATTEND Internal Medicine
DX: D64.9 Anemia, unspecified (principal)

== ENCOUNTER → 2017-10-07 | Outpatient (CLI) | payer OTHER, BC | END | disposition home or self-care (01) | LOC: C.LABBC 14:25 | PROVIDERS: ATTEND Urology | DX: R39.9 Unspecified symptoms and signs involving the genitourinary system (principal) ==